=== PATIENT | female | born 1980 | race Caucasian/White ===

== ENCOUNTER 2023-09-24 13:41 | Outpatient (REF) | payer BC, SELFPAY ==
[2023-09-29 10:11] LABS: Age Gdln ACOG Testing Note (.); HPV Aptima Negative (Negative); IGP, Aptima HPV, rfx 16/18,45 Note (.)
== END 2023-09-24 13:42 | disposition home or self-care (01) ==
LOC: LAB 13:41
PROVIDERS: PCP Obstetrics & Gynecology; Visit Provider Obstetrics & Gynecology
DX: Z01.419 Encounter for gynecological examination (general) (routine) without abnormal findings (principal)
CPT/HCPCS: 87624; G0145

== ENCOUNTER 2024-09-29 20:37 | Outpatient (REF) | payer BC, SELFPAY ==
--- OUTSIDE RECORDS SUMMARY | 2024-09-29 20:41 | XMS_ITS | CCD ---
Author Organization [facility] Care Team Providers Care Dip Tanker Name Role Phone Ashley Mayer Unavailable Yannick Rosales Unavailable [facility] Unavailable DR DOMINIK LEÓN Admitting Unavailable DR DOMINIK LEÓN Attending Unavailable DR MADDIE CASTAÑEDA Primary Care Unavailable DR DOMINIK LEÓN Consulting Unavailable MD Maddie Castañeda Primary Care Provider Obtashieymara, CLAY-C Cassandra Madden Attending Provider Maddie Castañeda MD Primary Care Provider Maddie Castañeda MD Primary Care Provider Ashley Barker NP Unavailable Maddie Castañeda MD Unavailable RIANNA KASPER Referring Unavailable MADDIE CASTAÑEDA Primary Care Unavailable LyChelsea Admitting Unavailable Chelsea Robbins Attending Unavailable Maddie Castañeda Primary Care Unavailable Cassandra Mixon Admitting Unavailable Cassandra Mixon Attending Unavailable Maddie Castañeda Primary Care Unavailable Maddie Castañeda MD Unavailable Maddie Castañeda MD Primary Care Provider Maddie Castañeda MD Unavailable ALE HAMPTON Attending Unavailable MADDIE CASTAÑEDA Referring Unavailable MADDIE CASTAÑEDA Primary Care Unavailable HAIDER CALABRESE JR. Attending Unavailable HAIDER CALABRESE JR. Referring Unavailable MADDIE CASTAÑEDA Primary Care Unavailable HAIDER CALABRESE JR. Admitting Unavailable HAIDER CALABRESE JR. Attending Unavailable WONDERMADDIE ROBBINS Referring Unavailable WONDERLY, MADDIE B Primary Care Unavailable ROOT, ASHLEY E Attending Unavailable WONDERLY, MADDIE B Primary Care Unavailable NIENBERGALE Attending Unavailable WONDERLY, MADDIE B Referring Unavailable WONDERLY, MADDIE B Primary Care Unavailable MONTSERRAT HAMPTON Attending Unavailable MONTSERRAT HAMPTON S Referring Unavailable WONDERLY, MADDIE B Primary Care Unavailable PUMP, ASHLEY L Referring Unavailable WONDERLY, MADDIE B Primary Care Unavailable PUMP, ASHLEY L Referring Unavailable WONDERLY, MADDIE B Primary Care Unavailable NIENBERGALE M Attending Unavailable WONDERLY, MADDIE B Referring Unavailable WONDERLY, MADDIE B Primary Care Unavailable APLING, ERYN B Referring Unavailable WONDERLY, MADDIE B Primary Care Unavailable CALABRESE JR., HAIDER Admitting Unavailable CALABRESE JR., HAIDER Attending Unavailable WONDERLY, MADDIE B Referring Unavailable WONDERLY, MADDIE B Primary Care Unavailable CALABRESE JR., HAIDER Attending Unavailable CALABRESE JR., HAIDER Referring Unavailable WONDERLY, MADDIE B Primary Care Unavailable ROOT, ASHLEY E Attending Unavailable WONDERLY, MADDIE B Primary Care Unavailable WONDERLY, MADDIE B Primary Care Unavailable LAURA TANNER Attending Unavailable LAURA TANNER Attending Unavailable TANNERLAURA RUSSELL Referring Unavailable WONDERLY, MADDIE B Primary Care Unavailable VERHOFF, ALMAZ N Attending Unavailable WONDERLY, MADDIE B Referring Unavailable WONDERLY, MADDIE B Primary Care Unavailable APLING, ERYN B Referring Unavailable WONDERLY, MADDIE B Primary Care Unavailable CALABRESE JR., HAIDER Admitting Unavailable CALABRESE JR., HAIDER Attending Unavailable WONDERLY, MADDIE B Referring Unavailable WONDERLY, MADDIE B Primary Care Unavailable CALABRESE JR., HAIDER Attending Unavailable CALABRESE JR., HAIDER Referring Unavailable WONDERLY, MADDIE B Primary Care Unavailable APLING, ERYN B Referring Unavailable WONDERLY, MADDIE B Primary Care Unavailable CALABRESE JR., HAIDER Attending Unavailable CALABRESE JR., HAIDER Referring Unavailable WONDERLY, MADDIE B Primary Care Unavailable CALABRESE JR., HAIDER Admitting Unavailable CALABRESE JR., HAIDER Attending Unavailable CALABRESE JR., HAIDER Referring Unavailable WONDERLY, MADDIE B Primary Care Unavailable ANKITA PATE Attending Unavailable WONDERLY, MADDIE B Primary Care Unavailable VERHOFF, ALMAZ N Attending Unavailable WONDERLY, MADDIE B Referring Unavailable WONDERLY, MADDIE B Primary Care Unavailable VERHOFF, ALMAZ N Attending Unavailable WONDERLY, MADDIE B Referring Unavailable WONDERLY, MADDIE B Primary Care Unavailable VERHOFF, ALMAZ N Referring Unavailable WONDERLY, MADDIE B Primary Care Unavailable VERHOFF, ALMAZ N Referring Unavailable WONDERLY, MADDIE B Primary Care Unavailable GUANAKITO CARDOZO, HAIDER Admitting Unavailable CALABRESE JR., HAIDER Attending Unavailable WONDERLY, MADDIE B Referring Unavailable WONDERLY, MADDIE B Primary Care Unavailable GUANAKITO JR., HAIDER Attending Unavailable GUANAKITO JR., HAIDER Referring Unavailable WONDERLY, MADDIE B Primary Care Unavailable ROOT, ASHLEY E Attending Unavailable WONDERLY, MADDIE B Primary Care Unavailable PUMP, ASHLEY Attending Unavailable PUMP, ASHLEY Attending Unavailable MAU, DOMINIK Attending Unavailable MAJO, RIANNA Carrillo Attending Unavailable PUMP, ASHLEY Attending Unavailable MAU, DOMINIK Attending Unavailable PUMP, ASHLEY Attending Unavailable PUMP, ASHLEY Referring Unavailable LUDIVINA, HONEY Carrillo Attending Unavailable PUMP, ASHLEY Referring Unavailable PUMP, ASHLEY Attending Unavailable MAOJ, RIANNA Carrillo Attending Unavailable RECINOS, ALE Cedeno Attending Unavailable RECINOS, ALE J Referring Unavailable APLING, ERYN Silveira Attending Unavailable RECINOS, ALE Cedeno Referring Unavailable PUMP, ASHLEY Attending Unavailable RECINOS, ALE Cedeno Attending Unavailable MAJO, RIANNA Carrillo Attending Unavailable MAJO, RIANNA Carrillo Referring Unavailable MAU, DOMINIK Attending Unavailable PUMP, ASHLEY Attending Unavailable LUDIVINA, HONEY Carrillo Attending Unavailable PUMP, ASHLEY Referring Unavailable MAU, DOMINIK Attending Unavailable PUMP, ASHLEY Attending Unavailable Allergies Allergy Classification Reported Allergen(s) Allergy Type Date of Onset Reaction(s) Facility (20 sources) Amoxicillin; Translations: [Amoxicillin] Drug Allergy 4 Hives, Swelling [facility] Repository (12 sources) Codeine Drug Allergy 2 Unknown, Unknown Reaction, face flushing [facility] (1 source) Codeine Drug Allergy 4 [facility] Repository (15 sources) frovatriptan Drug Allergy 3 [facility] (15 sources) Penicillin V Drug Allergy 3 Hives [facility] (15 sources) rizatriptan Drug Allergy 3 [facility] (15 sources) SUMAtriptan Drug Allergy 3 [facility] (2 sources) Adhesive Tape Drug allergy (disorder) 4 [facility] Repository (1 source) Codeine Drug Allergy 4 [facility] Repository (12 sources) Wound Dressing Adhesive Drug Allergy 4 Rash [facility] Medications Current Medications Medication Drug Class(es) Dates Sig (Normalized) Sig (Original) acetaminophen 500 mg oral tablet (14 sources) Start: 11-10-2023 take 1 tablet by mouth every six hours as needed acetaminophen (Tylenol) 500 MG tablet Take 500 mg by mouth every 6 (six) hours if needed 11/10/2023 Active [id number] 200 actuat albuterol 0.09 mg/actuat metered dose inhaler (3 sources) beta2-Adrenergic Agonist Start: 02-29-2024 End: 02-28-2025 take 2 puff(s) by inhalation every four hours for wheezing albuterol HFA 90 mcg/act inhaler Indications: Cough, unspecified type , SOB (shortness of breath) Inhale 2 puffs every 4 (four) hours if needed for wheezing 18 g 02/29/2024 08/27/2024 Discontinued (Therapy completed) almotriptan 12.5 mg oral tablet (20 sources) Serotonin-1b and Serotonin-1d Receptor Agonist Start: 04-02-2024 take 1 tablet by mouth once almotriptan (Axert) 12.5 MG tablet Indications: Migraine without status migrainosus, not intractable, unspecified migraine type (CMS/HCC) Take 1 tablet (12.5 mg) by mouth 1 (one) time if needed for migraine 12 tablet 11 04/02/2024 Active Start: 02-28-2022 Almotriptan Ma late Active 12.5 MG PO As Directed February 28, 2022 12:00am Start: 10-22-2018 End: 02-28-2022 take 15 mg by mouth once daily Axert Discontinued 15 M G PO Daily October 22, 2018 1:00am February 28, 2022 9:26am Axert PRN Active ALPRAZolam 0.25 mg oral tablet (12 sources) Benzodiazepine Start: 05-15-2024 take 1 tablet by mouth once daily as needed for anxiety ALPRAZolam (Xanax) 0.25 MG tablet Indications: Panic attacks (CMS/HCC) Take 1 tablet (0.25 mg) by mouth Daily as needed for anxiety 7 tablet 05/15/2024 Active azithromycin 500 mg oral tablet (2 sources) Macrolide Antimicrobial Start: 09-24-2024 End: 09-27-2024 take 1 tablet by mouth once daily azithromycin (Zithromax) 500 MG tablet Indications: Non-recurrent acute suppurative otitis media of both ears without spontaneous rupture of tympanic membranes Take 1 tablet (500 mg) by mouth Daily for 3 days 3 tablet 09/24/2024 09/27/2024 Active baclofen 10 mg oral tablet (17 sources) gamma-Aminobutyric Acid-ergic Agonist Start: 06-17-2024 take 1 tablet by mouth in the morning baclofen (Lioresal) 10 MG tablet Take 10 mg by mouth in the morning and 10 mg in the evening. 06/17/2024 Active calcium polycarbophil 625 mg oral tablet (20 sources) take 1 tablet by mouth in the morning Calcium Polycarbophil (fiber) 625 MG tablet Take 625 mg by mouth in the morning. Active cholecalciferol 0.125 mg oral capsule (20 sources) Vitamin D Start: 03-21-2024 take 5000 [IU] by mouth once daily Cholecalciferol (Vitamin D3) Active 5000 UNIT PO Daily March 21, 2024 12:00am take 1 tablet by mouth in the mo rning cholecalciferol (Vitamin D-3) 125 MCG (5000 UT) tablet Take 5,000 Units by mouth in the morning. Active citric acid 75 mg/ml / magnesium oxide 21.9 mg/ml / picosulfate sodium 0.0625 mg/ml oral solution (1 source) Calculi Dissolution Agent, Anti-coagulant Start: 02-08-2022 Clenpiq 10-3.5-12 MG-GM -GM/160ML 160 ML BOTTLE AT 3 PM AND 9 PM DAY PRIOR TO COLONOSCOPY Orally as directed for 1 days Jan, Active dicyclomine hydrochloride 10 mg oral capsule (20 sources) Anticholinergic Start: 09-28-2024 take 1 capsule by mouth four times daily as needed for pain dicyclomine (Bentyl) 10 MG capsule Indications: Irritable bowel syndrome with diarrhea Take 1 capsule (10 mg) by mouth 4 (four) times a day as needed (abd pain) 120 capsule 09/28/2024 Active Start: 04-11-2022 End: 09-26-2024 Dicyclomine Active 10 MG PO As Directed April 11, 2022 12:00am Bentyl PRN Activ e docusate sodium 10 mg/ml ora l suspension (17 sources) take 50 mg by mouth in the morning docusate (Colace) 50 MG/5ML liquid Take 50 mg by mouth in the morning. Active take 5 mL by mouth in the mornin g docusate (COLACE) 50 mg/5 mL liquid Take 5 mL (50 mg total) by mouth in the morning. Active estradiol 1 mg oral tablet (17 sources) Estrogen Start: 12-13-2023 End: 02-12-2025 take 1 tablet by mouth once daily estradiol (Estrace) 1 MG tablet Indications: Hormone imbalance Take 1 tablet (1 mg) by mouth Daily 90 tablet 3 02/13/2024 02/12/2025 Active Estradiol Active estrogens, conjugated (halfway) 0.625 mg oral tablet (4 sources) Estrogen Start: 07-15-2024 End: 08-27-2024 take 1 tablet by mouth once daily, then take 1 tablet by mouth once daily estrogens, conjugated, (Premarin) 0.625 MG tablet Indications: Hot flashes Take 1 tablet (0.625 mg) by mouth Daily Take 1 tablet daily by mouth for 30 days 30 tablet 3 07/15/2024 08/27/2024 Discontinued (Cost of medication) hydrocortisone 25 mg/ml rectal cream (15 sources) Corticosteroid Start: 11-08-2023 hydrocortisone (Anusol-HC) 2.5 % rectal cream Indications: Hemorrhoids, unspecified hemorrhoid type Insert into the rectum 2 (two) times a day 30 g 11/08/2023 Active hydrOXYzine hydrochloride 50 mg oral tablet (15 sources) Antihistamine Start: 12-10-2023 End: 03-09-2024 take 1 tablet by mouth every six hours as needed for anxiety and anxiety and anxiety hydrOXYzine HCl (Atarax) 50 MG tablet Indications: Anxiety Take 1 tablet (50 mg) by mouth every 6 (six) hours if needed for anxiety 120 tablet 2 12/10/2023 Active hyoscyamine sulfate 0.125 mg sublingual tablet (18 sources) Start: 10-08-2023 hyoscyamine (Levsin/SL) 0.125 MG SL tablet Indications: Generalized abdominal pain , Abdominal spasms Place 1 tablet (125 mcg) under the tongue every 4 (four) hours if needed for bladder spasms. 120 tablet 10/08/2023 Active Start: 10-22-2018 End: 04-11-2022 take 0.125 mg under the tongue once daily Hyoscyamine Sulfate Discontinued 0.125 MG SUBLINGUAL Daily October 22, 2018 1:00am April 11, 2022 8:41am ibuprofen 600 mg oral tablet (10 sources) Nonsteroidal Anti-inflammatory Drug Start: 11-10-2023 End: 08-27-2024 take 1 tablet by mouth every six hours as needed for pain ibuprofen (MOTRIN) 600 mg tablet Take 1 tablet (600 mg total) by mouth every 6 (six) hours as needed for pain. 30 tablet 11/10/2023 Active linaclotide 0.145 mg oral capsule (12 sources) Guanylate Cyclase-C Agonist Start: 07-28-2024 linaCLOtide (Linzess) 145 MCG capsule Daily 07/28/2024 Active lurasidone hydrochloride 20 mg oral tablet (3 sources) Atypical Antipsychotic Start: 09-19-2024 lurasidone (Latuda) 20 MG tablet 09/19/2024 Active NON FORMULARY (2 sources) NON FORMULARY daily. Hormone compound from Dr León 0 Active omeprazole 40 mg delayed release oral capsule (20 sources) Proton Pump Inhibitor Start: 02-29-2024 End: 09-08-2024 take 1 capsule by mouth once daily before mealtime omeprazole (PriLOSEC) [address] capsule Indications: Heartburn TAKE 1 CAPSULE BY MOUTH EVERY MORNING TAKE BEFORE MEALS DO NOT CRUSH, OR CHEW 90 capsule 1 09/08/2024 Active Start: 12-25-2023 End: 01-24-2024 take 1 capsule by mouth before mealtime omeprazole (PriLOSEC) [address] capsule Indications: Heartburn Take 1 capsule (40 mg) by mouth in the morning. Take before meals. Do not crush or chew.. 30 capsule 0 12/25/2023 01/24/2024 Active ondansetron 4 mg oral tablet (2 sources) Serotonin-3 Receptor Antagonist Start: 12-25-2023 End: 12-28-2023 take 1 tablet by mouth every eight hours for nausea ondansetron (Zofran) 4 MG tablet Indications: Nausea and vomiting, unspecified vomiting type Take 1 tablet (4 mg) by mouth every 8 (eight) hours if needed for nausea or vomiting for up to 3 days 9 tablet 0 12/25/2023 12/28/2023 Active polyethylene glycol 3350 [id number] mg powder for oral solution (17 sources) Osmotic Laxative take 17 g by mouth in the morning polyethylene glycol, PEG, 3350 (Miralax) 17 g packet Take 17 g by mouth in the morning. Active predniSONE 20 mg oral tablet (2 sources) Start: 08-27-2024 End: 09-01-2024 take 1 tablet by mouth once daily predniSONE (Deltasone) 20 MG tablet Indications: Chronic bilateral low back pain with bilateral sciatica Take 1 tablet (20 mg) by mouth Daily for 5 days 5 tablet 08/27/2024 09/01/2024 Active pregabalin 100 mg oral capsule (17 sources) Start: 09-03-2024 take 1 capsule by mouth in the morning, then take 1 capsule by mouth at bedtime pregabalin (LYRICA) 100 mg capsule Indications: Lumbar spondylosis , Disorder of sacrum , Spinal stenosis of lumbar region with neurogenic claudication Take 1 capsule (100 mg total) by mouth in the morning and 1 capsule (100 mg total) before bedtime. 60 capsule 1 09/03/2024 Active Start: 08-20-2024 End: 09-03-2024 take 1 capsule by mouth in the morning pregabalin (Lyrica) 75 MG capsule Take 75 mg by mouth in the morning and 75 mg in the evening. 08/20/2024 Active Psyllium (Hydrocil Instant) Packet (3 sources) Start: 02-28-2022 Psyllium (Hydrocil Instant) Packet Active 1 PACKET PO Daily February 28, 2022 12:00am Sennosides (Senna) 8.6 mg capsule (1 source) Start: 07-28-2024 take 1 capsule by mouth twice daily Sennosides (Senna) 8.6 mg capsule Active 8.6 MG PO Twice daily 60 30 July 28, 2024 12:00am sertraline 50 mg oral tablet (16 sources) Serotonin Reuptake Inhibitor Start: 01-07-2024 take 1 tablet by mouth in the morning sertraline (Zoloft) 50 MG tablet Indications: Anxiety Take 1 tablet (50 mg) by mouth in the morning. 30 tablet 2 01/07/2024 Active Start: 12-10-2023 take 1.5 tablets by mouth in the morning sertraline (Zoloft) 50 MG tablet Indications: Anxiety Take 1.5 tablets (75 mg) by mouth in the morning. 90 tablet 1 12/10/2023 Active tiZANidine 4 mg oral tablet (10 sources) Central alpha-2 Adrenergic Agonist Start: 08-27-2024 End: 09-06-2024 take 1 tablet by mouth twice daily as needed for muscle spasms tiZANidine (Zanaflex) 4 MG tablet Indications: Chronic bilateral low back pain with bilateral sciatica Take 1 tablet (4 mg) by mouth 2 (two) times a day as needed for muscle spasms for up to 10 days 20 tablet 08/27/2024 Active Vitamin D-3 (6 sources) Vitamin D-3 Acti ve Completed/Discontinued Medications Medication Drug Class(es) Dates Sig (Normalized) Sig (Original) celecoxib 200 mg oral capsule (14 sources) Nonsteroidal Anti-inflammatory Drug Start: 10-22-2018 End: 03-05-2024 take 200 mg by mouth once daily Celecoxib Discontinued 200 MG PO Daily October 22, 2018 1:00am March 05, 2024 10:19am CeleBREX Active ciprofloxacin 500 mg oral tablet (7 sources) Quinolone Antimicrobial Start: 02-28-2022 End: 04-11-2022 take 500 mg by mouth twice daily Ciprofloxacin Hcl Discontinued 500 MG PO Twice daily February 28, 2022 12:00am April 11, 2022 8:41am take 1 tablet by jonna every twelve hours Cipro 500 MG 1 tablet Orally every 12 hr s Not-Taking/PRN doxepin hydrochloride 10 mg oral capsule (6 sources) Tricyclic Antidepressant Start: 03-05-2024 End: 03-21-2024 take 1 capsule by mouth once daily at bedtime Doxepin Discontinued 10 MG PO Daily at bedtime March 05, 2024 12:00am March 21, 2024 8:32am FreeTextSi capsule at bedtime Orally Once a day; Note: Source Status: Start; Refills: 3; Qty: 90 Capsule; Provider: Connie Mcgrath Start: 12-05-2023 take 1 capsule by mo [facility] at bedtime doxepin (SINEquan) 10 MG capsule Take 1 capsule by mouth at bedtime 0 12/05/2023 Active escitalopram 20 mg oral tablet (10 sources) Serotonin Reuptake Inhibitor Start: 02-28-2022 End: 03-21-2024 take 20 mg by mouth once daily Escitalopram Oxalate Discontinued 20 MG PO Daily February 28, 2022 12:00am March 21, 2024 8:33am Escitalopram Oxa late Not-Taking/PRN Escitalopram Oxa late Active gabapentin 300 mg oral capsule (1 source) Anti-epileptic Agent Start: 07-30-2024 End: 08-20-2024 gabapentin (NEURONTIN) 300 mg capsule Indications: Lumbosacral spondylosis without myelopathy , Disorder of sacrum , Lumbar radiculopathy Take 1 capsule (300 mg total) by mouth See Admin Instructions. Take 1 tablet by mouth at bedtime for 3 nights, then take 1 tablet by mouth twice daily for 3 days, then take 1 tablet by mouth three times daily thereafter 81 capsule 07/30/2024 08/20/2024 Discontinued (Alternate therapy) Lactobacillus Combination No.4 (Probiotic) 3 billion cell Capsule (3 sources) Start: 04-11-2022 End: 03-21-2024 take 3 capsules by mouth once daily Lactobacillus Combination No.4 (Probiotic) 3 billion cell Capsule Discontinued 3000 MMU CELLS PO Daily April 11, 2022 12:00am March 21, 2024 8:34am Start: 04-11-2022 take 3 capsules by m out once daily Lactobacillus Combination No.4 (Probiotic) 3 billion cell Capsule Active 3000 MMU CELLS PO Daily April 11, 2022 12:00am melatonin 5 mg oral tablet (3 sources) Start: 10-22-2018 End: 03-21-2024 take 10 mg by mouth once daily at bedtime Melatonin Discontinued 10 MG PO Daily at bedtime October 22, 2018 1:00am March 21, 2024 8:34am metroNIDAZOLE 500 mg oral tablet (4 sources) Nitroimidazole Antimicrobial take 1 tablet by mouth three times daily as needed Flagyl 500 MG 1 tablet Orally Three times a day Not-Taking/PRN Psyllium Seed (With Dextrose) (Fiber) Powder (3 sources) Start: 10-22-2018 End: 02-28-2022 take 30 g by mouth once daily Psyllium Seed (With Dextrose) (Fiber) Powder Discontinued 30 GM PO Daily October 22, 2018 1:00am February 28, 2022 9:27am Problems Active Problems Problem Classification Problem Date Documented Da te Episodic/Chronic Abdominal pain (8 sources) Abdominal pain; Translations: [Unspecified abdominal pain] Onset: 02-08-2022 Resolved: 03-28-2022 Episodic Anxiety disorders (20 sources) Anxiety; Translations: [Anxiety disorder, unspecified] Onset: 04-10-2023 04-10-2023 Chronic Disorders of lipid metabolism (17 sources) Hypertriglyceridemia ; Translations: [Pure hyperglyceridemia] Onset: 04-10-2023 04-10-2023 Chronic Diverticulosis and diverticulitis (20 sources) Diverticular disease of colon; Translations: [Diverticulosis of intestine, part unspecified, without perforation or abscess without bleeding] Onset: 10-09-2018 Resolved: 03-28-2022 Chronic Gastrointestinal hemorrhage (9 sources) Hematochezia; Translations: [Melena] Onset: 02-08-2022 Resolved: 03-28-2022 Episodic Headache; including migraine (15 sources) Migraine; Translations: [Migraine, unspecified, not intractable, without status migrainosus] Onset: 04-10-2023 04-10-2023 Chronic Immunizations and screening for infectious disease (1 source) Encounter for screening for human papillomavirus (HPV); Translations: [ENC SCREENING HUMAN PAPILLOMAVIRUS] Onset: 09-19-2022 Episodic Nausea and vomiting (1 source) Nausea and vomiting; Translations: [Nausea with vomiting, unspecified] 12-25-2023 Episodic Nutritional deficiencies (15 sources) Vitamin D deficiency; Translations: [Vitamin D deficiency, unspecified] Onset: 04-10-2023 04-10-2023 Chronic Osteoarthritis (1 source) Primary generalized (osteo)arthritis; Translations: [Primary generalized (osteo)arthritis] Onset: 07-11-2023 Chronic Other ear and sense organ disorders (2 sources) Tinnitus of left ear; Translations: [Tinnitus, left ear] 09-24-2024 Episodic Other endocrine disorders (2 sources) Disorder of endocrine system; Translations: [Endocrine disorder, unspecified] 09-04-2024 Episodic Other gastrointestinal disorders (20 sources) Irritable bowel syndrome; Translations: [Irritable bowel syndrome without diarrhea] Onset: 04-10-2023 12-26-2023 Chronic Other gastrointestinal disorders (1 source) Irritable bowel syndrome without diarrhea Onset: 02-08-2022 Resolved: 02-08-2022 Chronic Other gastrointestinal disorders (2 sources) Irritable bowel syndrome with diarrhea; Translations: [Irritable bowel syndrome with diarrhea] 09-28-2024 Chronic Other gastrointestinal disorders (1 source) Irritable bowel syndrome with diarrhea Chronic Other gastrointestinal disorders (2 sources) Irritable bowel syndrome characterized by alternating bowel habit; Translations: [Mixed irritable bowel syndrome] 03-05-2024 Chronic Other gastrointestinal disorders (2 sources) Mixed irritable bowel syndrome; Translations: [Irritable bowel syndrome] 03-05-2024 Chronic Other gastrointestinal disorders (9 sources) Constipation; Translations: [Constipation, unspecified] Onset: 09-24-2024 07-28-2024 Episodic Other gastrointestinal disorders (3 sources) Constipation, unspecified; Translations: [Constipation, unspecified] Onset: 02-08-2022 Resolved: 03-28-2022 Episodic Other gastrointestinal disorders (5 sources) Diarrhea; Translations: [Diarrhea, unspecified] 12-25-2023 Episodic Other gastrointestinal disorders (2 sources) Heartburn; Translations: [Heartburn] 12-25-2023 Episodic Other gastrointestinal disorders (1 source) Diarrhea, unspecified; Translations: [Diarrhea, unspecified] Onset: 12-26-2023 Episodic Other hereditary and degenerative nervous system conditions (1 source) Restless legs syndrome; Translations: [Restless legs syndrome] Onset: 03-27-2024 Chronic Other nervous system disorders (15 sources) Difficulty walking; Translations: [Difficulty in walking, not elsewhere classified] Onset: 04-10-2023 04-10-2023 Chronic Other nervous system disorders (1 source) Other chronic pain; Translations: [Other chronic pain] Onset: 01-22-2024 Chronic Other nervous system disorders (1 source) Unspecified mononeuropathy of bilateral lower limbs; Translations: [Unspecified mononeuropathy of bilateral lower limbs] Onset: 12-26-2023 Chronic Other nutritional; endocrine; and metabolic disorders (15 sources) Cholesterol level - finding; Translations: [Lipoprotein deficiency] Onset: 04-10-2023 04-10-2023 Chronic Other nutritional; endocrine; and metabolic disorders (17 sources) Body mass index 30+ - obesity; Translations: [Obesity, unspecified] Onset: 04-10-2023 04-10-2023 Chronic Other nutritional; endocrine; and metabolic disorders (2 sources) Obesity caused by energy imbalance; Translations: [Morbid (severe) obesity due to excess calories] 08-27-2024 Chronic Other screening for suspected conditions (not mental disorders or infectious disease) (4 sources) Encounter for screening for malignant neoplasm of cervix; Translations: [ENC SCREENING MALIG NEOPLASM CERV] Onset: 09-18-2022 Episodic Other upper respiratory infections (15 sources) Frontal sinusitis; Translations: [Chronic frontal sinusitis] Onset: 04-10-2023 04-10-2023 Chronic Otitis media and related conditions (15 sources) Chronic left mastoiditis; Translations: [Chronic mastoiditis, left ear] Onset: 04-10-2023 04-10-2023 Chronic Residual codes; unclassified (2 sources) Obstructive sleep apnea syndrome; Translations: [Obstructive sleep apnea (adult) (pediatric)] 08-27-2024 Chronic Residual codes; unclassified (1 source) Hypersomnia, unspecified; Translations: [Hypersomnia, unspecified] Onset: 03-27-2024 Chronic Residual codes; unclassified (1 source) Other sleep apnea; Translations: [Other sleep apnea] Onset: 03-27-2024 Chronic Residual codes; unclassified (2 sources) Flushing; Translations: [Flushing] 09-04-2024 Episodic Residual codes; unclassified (2 sources) Menopause present; Translations: [Asymptomatic menopausal state] 09-04-2024 Episodic Spondylosis; intervertebral disc disorders; other back problems (20 sources) Degeneration of lumbosacral intervertebral disc; Translations: [Other intervertebral disc degeneration, lumbosacral region] Onset: 04-10-2023 04-10-2023 Chronic Spondylosis; intervertebral disc disorders; other back problems (20 sources) Acute back pain with sciatica; Translations: [Lumbago with sciatica, right side] Onset: 04-10-2023 04-10-2023 Episodic Unclassified (15 sources) Patient on antidepressant monitoring plan Onset: 08-08-2023 08-08-2023 Unclassified (1 source) Low back pain, unspecified; Translations: [Low back pain, unspecified] Onset: 01-22-2024 Past or Other Problems Problem Classification Problem Date Documented Da te Episodic/Chronic Hemorrhoids (1 source) Unspecified hemorrhoids Onset: 04-12-2022 Resolved: 04-12-2022 Episodic Miscellaneous mental health disorders (15 sources) Symptoms of depression; Translations: [Other symptoms and signs involving emotional state] Onset: 04-10-2023 04-10-2023 Episodic Mood disorders (15 sources) Mood disorders Onset: 05-03-2023 05-03-2023 Other acquired deformities (1 source) Spondylolysis, lumbar region; Translations: [Spondylolysis, lumbar region] Onset: 03-25-2024 Episodic Other aftercare (15 sources) Patient encounter status; Translations: [Other medical massage therapist (current) drug therapy] Onset: 05-11-2023 05-11-2023 Episodic Other connective tissue disease (1 source) Pain in right foot Onset: 01-14-2022 Resolved: 01-14-2022 Episodic Other connective tissue disease (1 source) Pain in left hand; Translations: [Pain in left hand] Onset: 11-09-2023 Episodic Other connective tissue disease (1 source) Hand pain Onset: 11-09-2023 Episodic Other gastrointestinal disorders (16 sources) History of diverticulitis; Translations: [Personal history of other diseases of the digestive system] Onset: 10-09-2018 04-18-2023 Episodic Other non-traumatic joint disorders (16 sources) Pain in right shoulder; Translations: [Pain in joint, shoulder region] Onset: 08-08-2023 08-08-2023 Episodic Other non-traumatic joint disorders (1 source) Other specified joint disorders, right shoulder; Translations: [Other specified joint disorders, right shoulder] Onset: 05-07-2024 Episodic Otitis media and related conditions (17 sources) Otitis media; Translations: [Otitis media, unspecified, unspecified ear] Onset: 04-10-2023 04-10-2023 Episodic Residual codes; unclassified (15 sources) Insomnia; Translations: [Insomnia, unspecified] Onset: 04-10-2023 04-10-2023 Episodic Superficial injury; contusion (1 source) Contusion of right foot, initial encounter Onset: 01-14-2022 Resolved: 01-14-2022 Episodic Results Test Name Value Interpretation Reference Range Facility XR ABDOMEN 1 VIEWon 07-11-20 XR ABDOMEN 1 VIEW Exam: XR - ABDOMEN 1 VIEW Reason for exam: Nausea, constipation, abdominal pain, discomfort Prior comparative studies: None Findings: No bowel dilatation is apparent. There is slight gaseous distention of small bowel in the right abdomen. There are clips in the right upper quadrant. No suspicious calcifications are seen. There is a paucity of stool in the colon. IMPRESSION: 1. Nonspecific bowel gas pattern. No clear evidence for obstruction. Electronically Signed Domingo Polk M.D. 2024-07-11 09:35:45 Normal Not Available XR SHOULDER 2+ VIEWS RIGHTon 05-06-2024 XR SHOULDER 2+ VIEWS RIGHT FINDINGS: The acromion is mildly down-sloping. Minimal osteophyte formation involves the AC joint. No fracture or dislocation or rotator cuff calcification is seen. Upper chest is clear. IMPRESSION: Mild arthritis, acromial morphology possible impingement TRANSCRIBED BY: ELECTRONICALLY SIGNED BY: Benjamin Cain MD Normal Not Available [place]illo 04-01-2024 L Specimen: [id number] Received: 04/01/24 Status: JAMARCUS Ware Num: [id number] Spec Type: Surgical Subm Dr: Chelsea Robbins DO Tissues: A Colon Biopsy (CECAL POLYP) B Colon Biopsy (SIGMOID POLYP) Procedures: HE/4, Gross/Micro L4/2 Age/ Patient Sex Location Account Attending Physician Georgette Wu 44/F [id number] Chelsea Robbins DO SPEC NUM: [id number] RECD: 04/01/24 STATUS: JAMARCUS WARE NUM: [id number] MARIA C: 04/01/24- SUBM DR: Chelsea Robbins DO ENTERED: 04/01/[address]: SPEC TYPE: Surgical DEPT: S ORDERED: HE/4, Gross/Micro L4/2 ORDERED: HE/4, Gross/Micro L4/2 Pathological Diagnosis A. Polyp, cecum, biopsy: Hyperplastic polyp. B. Polyp, sigmoid colon, biopsy: Hyperplastic polyp. Gross Description Received are 2 formalin filled containers each labeled with the patient's name, date of and specific specimen site. A. Further labeled cecal polyp is a 0.3 x 0.3 x 0.2 cm andrew polypoid tissue fragment, entirely submitted in A1. B. Further labeled sigmoid polyp is a 0.3 x 0.3 x 0.1 cm andrew polypoid tissue fragment, entirely submitted in B1. Clinical history: IBS, rectal bleeding, family history of colon cancer CPT Codes 62252n0 Specimen: [id number] Received: 04/01/24 Status: JAMARCUS Ware Num: [id number] Spec Type: Surgical Subm Dr: Chelsea Robbins DO Tissues: A Colon Biopsy (CECAL POLYP) B Colon Biopsy (SIGMOID POLYP) Procedures: Krystal MICHEL/Julio L4/2 Patient: Georgette Wu [id number] (Continued) Signed (signatur e on file) Zhao Dawkins MD 04/02/24 1503 [facility] Bacteria identified Cx Nom ( Stl)on 12-26-2023 STOOL CULT FINAL REPORT SEE NOTE Normal P [facility] Comment on above: Result Comment: NOTE Culture negative for Salmonella, Shigella, Campylobacter, E. coli O157, Vibrio, Aeromonas, and Plesiomonas species. Performed By: [employer] [address] [facility] [place] [address] Blanket Winder Helper: Song Britton MD, PhD CLIA Number: [id number] STOOL CULT PRELIM REPORT SEE NOTE Normal [facility] Comment on above: Result Comment: NOTE Culture negative for Salmonella, Shigella and E. coli O157. Performed By: [employer] [address] [place] [place] [address] Blanket Winder Helper: Song Britton MD, PhD CLIA Number: [id number] C DIFFICILE BY PCRon 024 C. difficile toxin genes KEVIN+probe Ql (Stl) TOXIGENIC C DIFF Negative (qualifier value) 027 NAP1 Negative (qualifier value) Normal PRNEG [facility] Comment on above: Performed By: #### 5 4067-4, OPS #### [facility] ([id number]) [address], [address] [place] [address] CBC W Auto Differential pane l (Bld)on 12-26-2023 Basophils (Bld) [#/Vol] 11 10*3/uL N [facility] Basophils/100 WBC (Bld) 0.1 % [facility] Eosinophils (Bld) [#/Vol] 0 10*3/uL Low [facility] Eosinophils/100 WBC (Bld) 0.0 % [facility] Erythrocyte distribution width (RBC) [Ratio] 13.2 % 11.0 - 15.0 % [facility] Hematocrit (Bld) [Volume fraction] 42.3 % 35.0 - 45.0 % [facility] Hemoglobin (Bld) [Mass/Vol] 14.2 g/dL 11.7 - 15.5 g/dL [facility] Interpretation and review of laboratory results Abnormal [facility] Lymphocytes (Bld) [#/Vol] 2553 10*3/uL [facility] Lymphocytes/100 WBC (Bld) 23.0 % [facility] MCH (RBC) [Entitic mass] 28.4 pg 27. 0 - 33.0 pg [facility] MCHC (RBC) [Mass/Vol] 33.6 g/dL 32.0 - 36.0 g/dL [facility] MCV (RBC) [Entitic vol] 84.6 fL 80.0 - 100.0 fL [facility] Monocytes (Bld) [#/Vol] 444 10*3/uL [facility] Monocytes/100 WBC (Bld) 4.0 % N [facility] Neutrophils (Bld) [#/Vol] 8092 10*3/uL High [facility] Neutrophils/100 WBC (Bld) 72.9 % [facility] Platelet mean volume (Bld) [Entitic vol] 9.9 fL 7.5 - 12.5 fL [facility] Platelets (Bld) [#/Vol] 379 10*3/uL [facility] RBC (Bld) [#/Vol] 5.00 10*6/uL [facility] WBC (Bld) [#/Vol] 11.1 10*3/uL High [facility] Comprehensive metabolic pane pillo 12-26-2023 Albumin [Mass/Vol] 4.2 g/dL 3.6 - 5.1 g/dL [facility] Albumin/Globulin [Mass ratio] 1.6 {ratio} [facility] ALP [Catalytic activity/Vol] 82 U/L 31 - 125 U/L [facility] ALT [Catalytic activity/Vol] 14 U/L 6 - 29 U/L [facility] AST [Catalytic activity/Vol] 14 U/L 10 - 30 U/L [facility] Bilirubin [Mass/Vol] 0.8 mg/dL 0.2 - 1 .2 mg/dL [facility] Calcium [Mass/Vol] 9.5 mg/dL 8.6 - 10. 2 mg/dL [facility] Chloride [Moles/Vol] 103 mmol/L 98 - 11 0 mmol/L [facility] CO2 [Moles/Vol] 27 mmol/L 20 - 32 mmol/L [facility] Creatinine [Mass/Vol] 0.53 mg/dL 0.50 - 0.99 mg/dL [facility] GFR/1.73 sq M.predicted among non-blacks MDRD (S/P/Bld) [Vol rate/Area] 118 mL/min/{1.73_m2} > OR = 60 mL/min/1.73m 2 [facility] Globulin (S) [Mass/Vol] 2.7 g/dL N [facility] Glucose [Mass/Vol] 81 mg/dL 65 - 99 mg/dL [facility] Comment on above: Fasting reference interval Potassium [Moles/Vol] 3.9 mmol/L 3.5 - 5.3 mmol/L [facility] Protein [Mass/Vol] 6.9 g/dL 6.1 - 8.1 g/dL [facility] Sodium [Moles/Vol] 138 mmol/L 135 - 146 mmol/L [facility] Urea nitrogen [Mass/Vol] 8 mg/dL 7 - 25 mg/d L [facility] Urea nitrogen/Creatinine [Mass ratio] SEE NOTE: [facility] Comment on above: Not Reported: BUN an d Creatinine are within reference range. E. coli shiga-like toxin IA Ql (Stl)on 12-26-2023 E.COLI SHIGA LIKE TOXIN BY EIA Negative Normal Negative [facility] Comment on above: Result Comment: NOTE INTERPRETIVE INFORMATION: E. coli Shiga-like Toxin by EIA This test detects Shiga-like toxin which may be produced by greater than 150 serotypes of E. coli as well as Shigella dysenteriae type 1 strains. The level of toxin does not correlate with severity of disease. A positive result does not exclude infection caused by another enteric pathogen. A negative test does not exclude the diagnosis of hemorrhagic colitis. Performed By: [employer] [address] [place] [address] Blanket Winder Helper: Song Britton MD, PhD CLIA Number: [id number] FECAL OCCULT BLOODon 024 Hemoglobin.gastrointesti nal Ql (Stl) Negative Normal NEG [facility] Comment on above: Performed By: #### 2 335-8 #### [facility] ([id number]) [address] [place] [address], [address] [place] [address] No Panel Informationon 12-26 Performing Organization Information Site ID: QPT Name: Currently [facility] Address: [address] [place] [address], [address] [place] [id number] Director: Aaron Mendiola MD [facility] AND P SCREENon 12-26-2023 O AND P SCREEN GIARDIA SPECIFIC Ag Negative (qualifier value) GIARDIA ANTIGEN NOT DETECTED CRYPTOSPORIDIUM AG Negative (qualifier value) CRYPTOSPORIDIUM ANTIGEN NOT DETECTED NOTE: A Giardia/Cryptospori dium Screen has been performed. A traditional Ova and Parasite exam, if collected in a preservative, may be requested by contacting the laboratory at [phone] within 72 hours of collection for cases of persistent diarrhea or if the patient has visited an endemic area or traveled outside the [place] Normal [facility] Comment on above: Performed By: #### 5 4067-4, OPS #### [facility] ([id number]) [address], [address] [place] [address] XR HAND LT MIN 3 VWSon 11-10 XR HAND LT MIN 3 VWS XR HAND LT MIN 3 VWS XR HAND LT MIN 3 VWS HISTORY: Hand pain, fall COMPARISON: 08/01/2017. FINDINGS: No acute fracture. Mild degenerative changes base of thumb. Soft tissues grossly unremarkable. IMPRESSION: * No acute osseous abnormality. Approved by Resident Justin Trejo DO on 11/09/2023 11:47 PM IRigo MD have personally reviewed the image(s) and agree with and/or edited the report 0 Finalized by Rigo Floyd MD on 11/10/2023 12:00 AM [facility] MR LUMBAR SPINE WO CONTon MR LUMBAR SPINE WO CONT MR LUMBAR SPINE WO CONT MRI LUMBAR SPINE WITHOUT CONTRAST COMPARISON: None. HISTORY: Back pain. TECHNIQUE: Multisequence, multiplanar MRI of the lumbar spine performed without contrast. FINDINGS: Disc desiccation is seen at the L5-S1 level. Remainder the disc spaces are preserved. There are no fractures. The conus medullaris terminates normally. There are no paraspinous masses. L1-2 through L3-4: Within normal limits. L4-5: There is mild disc bulge and facet hypertrophy. There is no neural foraminal encroachment or central canal stenosis. L5-S1: Severe disc desiccation. There is diffuse disc bulge with facet hypertrophy and ligamentum flavum hypertrophy. Moderate to severe neural foraminal narrowing is seen bilaterally without significant central canal stenosis. IMPRESSION: Severe disc desiccation and diffuse disc bulge with ligamentum flavum hypertrophy and facet hypertrophy at the L5-S1 level causing moderate to severe neural foraminal narrowing bilaterally without significant central canal stenosis. 6 Finalized by Rosa Isela Salinas DO on 11/06/2023 9:03 AM Normal [facility] XR ABDOMEN 2 VIEWon 10-08-20 XR ABDOMEN 2 VIEW CLINICAL HISTORY: RUQ and LUQ pain, increased diarrhea COMPARISON: FINDINGS: There are cholecystectomy clips in the right upper quadrant. There is a paucity of intra-abdominal bowel gas which may be secondary to fluid-filled loops of bowel versus vomiting and diarrhea. There are no acute osseous changes. IMPRESSION: There is a paucity of intra-abdominal bowel gas which may be secondary to fluid-filled loops of bowel versus vomiting and diarrhea. ELECTRONICALLY SIGNED BY: Juma Fong MD Normal Not Available Cytology Cervical or vaginal smear or scraping studyon 09-24-2023 [facility] Alan[facility] [En zymatic activity/volume] in Serum or PlasmaOrdered By: Cassandra Mixon on 07-11-2023 ALT [Catalytic activity/Vol] 14 U/L 7-52 [facility] Albumin [Mass/volume] in Ser um or Plasma by Bromocresol green (BCG) dye binding methoOrdered By: Cassandra Mixon on 07-11-2023 Albumin BCG dye [Mass/Vol] 4.3 g/dL 3.5-5.7 [facility] Alkaline phosphatase [Enzyma tic activity/volume] in Serum or PlasmaOrdered By: Cassandra Mixon on 07-11-2023 ALP [Catalytic activity/Vol] 77 U/L 34-104 [facility] Aspartate aminotransferase [ Enzymatic activity/volume] in Serum or PlasmaOrdered By: Cassandra Mixon on 07-11-2023 AST [Catalytic activity/Vol] 16 U/L 13-39 [facility] Basophils Auto (Bld) [#/Vol] Ordered By: Cassandra Mixon on 07-11-2023 Basophils (Bld) [#/Vol] 0.0 10*3/uL 0.0-0.2 [facility] Basophils/100 WBC Auto (Bld) Ordered By: Cassandra Mixon on 07-11-2023 Basophils/100 WBC (Bld) 0.2 % . F [facility] Bilirubin.total [Mass/volume ] in Serum or PlasmaOrdered By: Cassandra Mixon on 07-11-2023 Bilirubin [Mass/Vol] 0.5 mg/dL 0.3-1.0 [facility] Calcium [Mass/volume] in Ser um or PlasmaOrdered By: Cassandra Mixon on 07-11-2023 Calcium [Mass/Vol] 9.6 mg/dL 8.6-10.3 [facility] Carbon dioxide, total [Moles /volume] in Serum or PlasmaOrdered By: Cassandra Mixon on 07-11-2023 CO2 [Moles/Vol] 29.5 mmol/L 21.0-31.0 [facility] Chloride [Moles/volume] in S monica or PlasmaOrdered By: Cassandra Mixon on 07-11-2023 Chloride [Moles/Vol] 103 mmol/L 98-107 [facility] Complete Blood Count Auto Di ffon 07-11-2023 Basophils (Bld) [#/Vol] 0.0 10*3/uL Normal 0.0-0.2 [facility] Comment on above: Result Comment: PERF ORMED BY: [place] [address] PATHOLOGIST HOUSE ADMIN JADYN GUADARRAMA M.D. Performed By: #### C BC, CMP #### [address] Basophils/100 WBC (Bld) 0.2 % Normal . [facility] Comment on above: Performed By: #### C BC, CMP #### [facility] [address] [place] [address] [place] Eosinophils (Bld) [#/Vol] 0.0 10*3/uL Normal 0.0-0.45 [facility] Comment on above: Performed By: #### C BC, CMP #### [place] [address] [place] Eosinophils/100 WBC (Bld) 0.0 % Normal . [facility] Comment on above: Performed By: #### C BC, CMP #### [address] Erythrocyte distribution width (RBC) [Ratio] 13.0 % Normal 11.9-15.3 [facility] Comment on above: Performed By: #### C BC, CMP #### [address] Hematocrit (Bld) [Volume fraction] 40.0 % Normal 34.0-46.4 [facility] Comment on above: Performed By: #### C BC, CMP #### [address] Hemoglobin (Bld) [Mass/Vol] 13.8 g/dL Normal 11.8-15.4 [facility] Comment on above: Performed By: #### C BC, CMP #### [address] Lymphocytes (Bld) [#/Vol] 2.7 10*3/uL Normal 1.00-4.8 [facility] Comment on above: Performed By: #### C BC, CMP #### [address] Lymphocytes/100 WBC (Bld) 27.6 % Normal . [facility] Comment on above: Performed By: #### C BC, CMP #### [address] MCH (RBC) [Entitic mass] 28.5 pg Normal 24.7-34.3 [facility] Comment on above: Performed By: #### C BC, CMP #### [address] MCV (RBC) [Entitic vol] 82.7 fL Normal 80-100 [facility] Comment on above: Performed By: #### C BC, CMP #### [address] Mean Corpuscular HGB Conc 34.5 g/dL Normal 32.0-35.0 [facility] Comment on above: Performed By: #### C BC, CMP #### [place] [address] [place] Monocytes (Bld) [#/Vol] 0.7 10*3/uL Normal 0.0-0.8 [facility] Comment on above: Performed By: #### C BC, CMP #### [address] Monocytes/100 WBC (Bld) 7.0 % Normal . [facility] Comment on above: Performed By: #### C BC, CMP #### [address] Neutrophils (Bld) [#/Vol] 6.4 10*3/uL Normal 1.8-7.7 [facility] Comment on above: Performed By: #### C BC, CMP #### [address] Neutrophils/100 WBC (Bld) 65.2 % Normal . [facility] Comment on above: Performed By: #### C BC, CMP #### [address] NRBC% 0.2 /100{WBC} Normal 0-0.5 [facility] Comment on above: Performed By: #### C BC, CMP #### [place] [address] [place] Platelet mean volume (Bld) [Entitic vol] 8.2 fL Normal 6.3-10.7 [facility] Comment on above: Performed By: #### C BC, CMP #### [place] [address] [place] Platelets (Bld) [#/Vol] 379 10*3/uL Normal 150-450 [facility] Comment on above: Performed By: #### C BC, CMP #### [place] [address] [place] RBC (Bld) [#/Vol] 4.84 10*6/uL Normal 3.60-5.00 [facility] Comment on above: Performed By: #### C BC, CMP #### [address] WBC (Bld) [#/Vol] 9.8 10*3/uL Normal 3.8-11.6 [facility] Comment on above: Performed By: #### C BC, CMP #### [address] Comprehensive Metabolic Pane pillo 07-11-2023 Albumin [Mass/Vol] 4.3 g/dL Normal 3.5-5.7 [facility] Comment on above: Performed By: #### C BC, CMP #### [address] Albumin/Globulin [Mass ratio] 1.5 {ratio} Normal [facility] Comment on above: Performed By: #### C BC, CMP #### [address] ALP [Catalytic activity/Vol] 77 U/L Normal 34-104 [facility] Comment on above: Result Comment: PERF ORMED BY: [place] [address] PATHOLOGIST HOUSE ADMIN JADYN GUADARRAMA M.D. Performed By: #### C BC, CMP #### [address] ALT [Catalytic activity/Vol] 14 U/L Normal 7-52 [facility] Comment on above: Performed By: #### C BC, CMP #### [address] Anion gap [Moles/Vol] 10.6 mmol/L Normal 6.0-15.0 [facility] Comment on above: Performed By: #### C BC, CMP #### [address] AST [Catalytic activity/Vol] 16 U/L Normal 13-39 [facility] Comment on above: Performed By: #### C BC, CMP #### [facility] [address] [place] [address] [place] Bilirubin [Mass/Vol] 0.5 mg/dL Normal 0.3-1.0 [facility] Comment on above: Performed By: #### C BC, CMP #### [facility] [address] [place] [address] [place] Calcium [Mass/Vol] 9.6 mg/dL Normal 8.6-10.3 [facility] Comment on above: Performed By: #### C BC, CMP #### [facility] [address] Chloride [Moles/Vol] 103 mmol/L Normal 98-107 [facility] Comment on above: Performed By: #### C BC, CMP #### [facility] [address] [place] [address] [place] CO2 [Moles/Vol] 29.5 mmol/L Normal 21.0-31.0 [facility] Comment on above: Performed By: #### C BC, CMP #### [facility] [address] [place] [address] [place] Creatinine [Mass/Vol] 0.61 mg/dL Normal 0.60-1.20 [facility] Comment on above: Performed By: #### C BC, CMP #### [facility] [address] [place] [address] [place] GFR/1.73 sq M.predicted MDRD (S/P/Bld) [Vol rate/Area] mL/min/{1.73_m2} Normal [facility] Comment on above: Performed By: #### C BC, CMP #### [facility] [address] [place] [id number] [place] Globulin (S) [Mass/Vol] 2.9 g/dL Normal T [facility] Comment on above: Performed By: #### C BC, CMP #### [facility] [address] [place] [address] [place] Glucose [Mass/Vol] 75 mg/dL Normal 70-100 [facility] Comment on above: Result Comment: [place] Glucose Reference Range is dependent on time and content of last meal. Glucose of more than 200 mg/dL in a nonstressed, ambulatory subject supports the diagnosis of Diabetes Mellitus. ADA recommended reference range Performed By: #### C BC, CMP #### [facility] [address] Potassium [Moles/Vol] 4.1 mmol/L Normal 3.5-5.1 [facility] Comment on above: Performed By: #### C BC, CMP #### [facility] [address] Protein [Mass/Vol] 7.2 g/dL Normal 6.4-8.9 [facility] Comment on above: Performed By: #### C BC, CMP #### [facility] [address] Sodium [Moles/Vol] 139 mmol/L Normal 136-145 [facility] Comment on above: Performed By: #### C BC, CMP #### [facility] [address] [place] [address] [place] Urea nitrogen [Mass/Vol] 8 mg/dL Normal 7-25 [facility] Comment on above: Performed By: #### C BO, CMP #### [facility] [address] [place] [address] [place] Creatinine [Mass/volume] in Serum or PlasmaOrdered By: Cassandra Mixon on 07-11-2023 Creatinine [Mass/Vol] 0.61 mg/dL 0.60-1.20 [facility] Eosinophils Auto (Bld) [#/Vo l]Ordered By: Cassandra Mixon on 07-11-2023 Eosinophils (Bld) [#/Vol] 0.0 10*3/uL 0.0-0.45 [facility] Eosinophils/100 WBC Auto (Bl d)Ordered By: Cassadnra Mixon on 07-11-2023 Eosinophils/100 WBC (Bld) 0.0 % . [facility] Erythrocyte distribution wid th Auto (RBC) [Ratio]Ordered By: Cassandra Mixon on 07-11-2023 Erythrocyte distribution width (RBC) [Ratio] 13.0 % 11.9-15.3 [facility] Globulin Calc (S) [Mass/Vol] Ordered By: Cassandra Mixon on 07-11-2023 Globulin (S) [Mass/Vol] 2.9 g/dL F [facility] Glucose [Mass/volume] in Ser um or PlasmaOrdered By: Cassandra Mixon on 07-11-2023 Glucose [Mass/Vol] 75 mg/dL 70-100 [facility] Comment on above: ADA recommended refe rence rangeRandom Glucose Reference Range is dependent on time and content of last meal. Glucose of more than 200 mg/dL in a nonstressed, ambulatory subject supports the diagnosis of Diabetes Mellitus. Hematocrit Auto (Bld) [Volum e fraction]Ordered By: Cassandra Mixon on 07-11-2023 Hematocrit (Bld) [Volume fraction] 40.0 % 34.0-46.4 [facility] Hemoglobin [Mass/volume] in BloodOrdered By: Cassandra Mixon on 07-11-2023 Hemoglobin (Bld) [Mass/Vol] 13.8 g/dL 11.8-15.4 [facility] Leukocytes [#/volume] correc seb for nucleated erythrocytes in Blood by Automated counOrdered By: Cassandra Mixon on 07-11-2023 WBC corrected for nucl RBC Auto (Bld) [#/Vol] 9.8 10*3/uL 3.8-11.6 [facility] Lymphocytes Auto (Bld) [#/Vo l]Ordered By: Cassandra Mixon on 07-11-2023 Lymphocytes (Bld) [#/Vol] 2.7 10*3/uL 1.00-4.8 [facility] Lymphocytes/100 WBC Auto (Bl d)Ordered By: Cassandra Mixon on 07-11-2023 Lymphocytes/100 WBC (Bld) 27.6 % . [facility] MCH Auto (RBC) [Entitic mass ]Ordered By: Cassandra Mixon on 07-11-2023 MCH (RBC) [Entitic mass] 28.5 pg 24.7-34.3 [facility] MCHC Auto (RBC) [Mass/Vol]Or dered By: Cassandra Mixon on 07-11-2023 MCHC (RBC) [Mass/Vol] 34.5 g/dL 32.0-35.0 [facility] MCV Auto (RBC) [Entitic vol] Ordered By: Cassandra Mixon on 07-11-2023 MCV (RBC) [Entitic vol] 82.7 fL 80-100 [facility] Monocytes Auto (Bld) [#/Vol] Ordered By: Cassandra Mixon on 07-11-2023 Monocytes (Bld) [#/Vol] 0.7 10*3/uL 0.0-0.8 [facility] Monocytes/100 WBC Auto (Bld) Ordered By: Cassandra Mixon on 07-11-2023 Monocytes/100 WBC (Bld) 7.0 % . [facility] Neutrophils Auto (Bld) [#/Vo l]Ordered By: Cassandra Mixon on 07-11-2023 Neutrophils (Bld) [#/Vol] 6.4 10*3/uL 1.8-7.7 [facility] Neutrophils/100 WBC Auto (Bl d)Ordered By: Cassandra Mixon on 07-11-2023 Neutrophils/100 WBC (Bld) 65.2 % . [facility] No Panel InformationOrdered By: Cassandra Mixon on 07-11-2023 Estimated GFR (CKD-EPI) > 60.0 mL/Min [facility] Pharmacy Creatinine Clearance (Chem N/A [facility] Nucleated erythrocytes [Pres ence] in Blood by Automated countOrdered By: Cassandra Mixon on 07-11-2023 Nucleated RBC Auto Ql (Bld) 0.2 /100{WBC} 0-0.5 [facility] Platelet mean volume Auto (B ld) [Entitic vol]Ordered By: Cassandra Mixon on 07-11-2023 Platelet mean volume (Bld) [Entitic vol] 8.2 fL 6.3-10.7 [facility] Platelets Auto (Bld) [#/Vol] Ordered By: Cassandra Mixon on 07-11-2023 Platelets (Bld) [#/Vol] 379 10*3/uL 150-450 [facility] Potassium [Moles/volume] in Serum or PlasmaOrdered By: Cassandra Mixon on 07-11-2023 Potassium [Moles/Vol] 4.1 mmol/L 3.5-5.1 [facility] Protein [Mass/volume] in Ser um or PlasmaOrdered By: Cassandra Mixon on 07-11-2023 Protein [Mass/Vol] 7.2 g/dL 6.4-8.9 [facility] RBC Auto (Bld) [#/Vol]Ordere d By: Cassandra Mixon on 07-11-2023 RBC (Bld) [#/Vol] 4.84 10*6/uL 3.60-5.00 [facility] Serum or plasma albumin/glob ulin mass ratioOrdered By: Cassandra Mixon on 07-11-2023 Albumin/Globulin [Mass ratio] 1.5 {ratio} [facility] Serum or plasma anion gap de terminationOrdered By: Cassandra Mixon on 07-11-2023 Anion gap [Moles/Vol] 10.6 mmol/L 6.0-15.0 [facility] Sodium [Moles/volume] in Ser um or PlasmaOrdered By: Cassandra Mixon on 07-11-2023 Sodium [Moles/Vol] 139 mmol/L 136-145 [facility] Urea nitrogen [Mass/volume] in Serum or PlasmaOrdered By: Cassandra Mixon on 07-11-2023 Urea nitrogen [Mass/Vol] 8 mg/dL 7-25 [facility] WBC Auto (Bld) [#/Vol]Ordere d By: Cassandra Mixon on 07-11-2023 WBC (Bld) [#/Vol] 9.8 10*3/uL 3.8-11.6 [facility] PAP ACOG PANEL 2: 30 to 65on 09-24-2022 . . Normal [facility] Comment on above: Result Comment: Perf ormed at: BA Performed By: #### [id number] #### [facility] [address] [place] [address] Dr. Yamilka Woodson Age Gdln ACOG Testing 30-65 Normal [facility] Comment on above: Performed By: #### 4 [id number] #### [facility] [address] [place] [address] Dr. Yamilka Woodson DIAGNOSIS: Comment Normal [facility] Comment on above: Result Comment: NEGA TIVE FOR INTRAEPITHELIAL LESION OR MALIGNANCY. Performed at: BA Performed By: #### 4 [id number] #### [facility] [address] [place] [address] Dr. Yamilka Woodson HPV Aptima Negative Normal Negative [facility] Comment on above: Result Comment: This nucleic acid amplification test detects fourteen high-risk HPV types (16,18,31,33,35,39,45,51,52,56,58,59,66,68) without differentiation. Performed at: =G Performed By: #### 4 [id number] #### [facility] [address] [place] [address] Dr. Yamilka Woodson HPV Genotype Reflex Comment Normal [facility] Comment on above: Result Comment: Crit eria not met, HPV Genotype not performed. Performed at: BA Performed By: #### [id number] #### [facility] [address] [place] [address] Dr. Yamilka Woodson Methodology: Comment [facility] Comment on above: Result Comment: This liquid based ThinPrep(R) pap test was screened with the use of an image guided system. Performed at: WB Performed By: #### [id number] #### [facility] [address] [place] [address] Dr. Yamilka Woodson Note: Comment Normal [facility] Comment on above: Result Comment: The Pap smear is a screening test designed to aid in the detection of premalignant and malignant conditions of the uterine cervix. It is not a diagnostic procedure and should not be used as the sole means of detecting cervical cancer. Both false-positive and false-negative reports do occur. . Performed at: WB Performed By: #### 4 [id number] #### [facility] [address] [place] [address] Dr. Yamilka Woodson Performed by: Comment Normal [facility] Comment on above: Result Comment: Yfn Watson, Entry Examiner (ASCP) Performed at: Performed By: #### 4 [id number] #### [facility] [address] [place], [place] [address] Dr. Yamilka Woodson Specimen adequacy: Comment Normal [facility] Comment on above: Result Comment: Sati sfactory for evaluation. No endocervical component is identified. Performed at: Performed By: #### 4 [id number] #### [facility] [address] [place], [place] [address] Dr. Yamilka Woodson MRI Foot w/o Righton 022 MRI Foot w/o Right HISTORY: Right heel pain. Suspected plantar fasciitis. Concern for calcaneal stress fracture. TECHNIQUE: Routine MRI of the right ankle/hindfoot and portions of the midfoot Comparison: 02/09/2022 radiographs RESULT: CARTILAGE: The tibiotalar joint cartilage and subtalar joint cartilage appears to be preserved. TENDONS: Achilles tendon, medial flexor tendons, peroneal tendons, and extensor tendons are intact with normal signal LIGAMENTS: Talofibular ligaments, tibiofibular ligaments, calcaneofibular ligament, deltoid ligament, and spring ligament appear intact. JOINT FLUID: Physiologic quantity of joint fluid. BONE MARROW: Bone marrow signal intensity is within normal limits. PLANTAR APONEUROSIS: Mild to moderate thickening at origin, especially of the central band, without associated tear. Associated calcaneal enthesophyte. SINUS TARSI: Sinus tarsi is within normal limits. MUSCLE: Muscle bulk and signal intensity is within normal limits. TARSAL TUNNEL: Tarsal tunnel is within normal limits. OTHER: No other significant abnormality. IMPRESSION: Mild to moderate plantar fasciitis, without tear. No evidence for fracture. Report reported and signed by Calvin Wasserman on 06/19/2022 1321 Normal [facility] Stroke Belt Sander Operator Q - CBC (H/H,RBC,INDICES,WBC ,PLT)on 03-24-2022 Erythrocyte distribution width (RBC) [Ratio] 13.2 % Normal 11.0-15.0 [facility] Stroke Belt Sander Operator Comment on above: Order Comment: [facility] Testing performed at: QPT, [facility], [address] [place] [address], [address] [place] [address], [address] [place] [address], Blanket Winder Helper: Aaron Mendiola MD [facility] Collection Date/Time: [facility] Results Received Date/Time: [facility] Reported Date/Time: FASTING: NO Performed By: #### 1 759, [id number] #### [facility] [address] [place] [address] Hematocrit (Bld) [Volume fraction] 38.6 % Normal 35.0-45.0 [facility] Stroke Belt Sander Operator Comment on above: Order Comment: [facility] performed at: [employer], Currently [facility], [address] [place] [address], [address] [place] [address], [address] [place] [address], Blanket Winder Helper: Aaron Mendiola MD [facility] Collection Date/Time: [facility] Results Received Date/Time: [facility] Reported Date/Time: FASTING: NO Performed By: #### 1 759, [id number] #### [facility] [address] [place] [address] Hemoglobin (Bld) [Mass/Vol] 13.5 g/dL Normal 11.7-15.5 [facility] Stroke Belt Sander Operator Comment on above: Order Comment: [facility] performed at: [facility], [address] [facility], [address] [place] [address], [address] [place] [address], Blanket Winder Helper: Aaron Mendiola MD [facility] Collection Date/Time: [facility] Results Received Date/Time: [facility] Reported Date/Time: FASTING: NO Performed By: #### 1 759, [id number] #### [facility] [address] [place] [address] MCH (RBC) [Entitic mass] 29.0 pg Normal 27.0-33.0 [facility] Stroke Belt Sander Operator Comment on above: Order Comment: [facility] performed at: [employer], Currently [facility], [address] [facility], [address] [place] [address], [address] [place] [address], Blanket Winder Helper: Aaron Mendiola MD [facility] Collection Date/Time: [facility] Results Received Date/Time: [facility] Reported Date/Time: FASTING: NO Performed By: #### 1 759, [id number] #### [facility] [address] [place] [address] MCHC (RBC) [Mass/Vol] 35.0 g/dL Normal 32.0-36.0 [facility] Specialist Comment on above: Order Comment: [facility] performed at: [employer], Currently [facility], [address] [place] [address], [address] [place] [address], [address] [place] [address], Blanket Winder Helper: Aaron Mendiola MD [facility] Collection Date/Time: [facility] Results Received Date/Time: [facility] Reported Date/Time: FASTING: NO Performed By: #### 1 759, [id number] #### [facility] [address] [place] [address] MCV (RBC) [Entitic vol] 83.0 fL Normal 80.0-100.[address] [facility] Specialist Comment on above: Order Comment: [facility] performed at: [facility], [address] [place] [address], [address] [place] [address], [address] [place] [address], Blanket Winder Helper: Aaron Mendiola MD [facility] Collection Date/Time: [facility] Results Received Date/Time: [facility] Reported Date/Time: FASTING: NO Performed By: #### 1 759, [id number] #### [facility] [address] [place] [address] Platelet mean volume (Bld) [Entitic vol] 10.3 fL Normal 7.5-12.5 [facility] Stroke Belt Sander Operator Comment on above: Order Comment: [facility] performed at: [employer], Currently [facility], [address] [facility], [address] [place] [address], [address] [place] [address], Blanket Winder Helper: Aaron Mendiola MD [facility] Collection Date/Time: [facility] Results Received Date/Time: [facility] Reported Date/Time: FASTING: NO Performed By: #### 1 759, [id number] #### [facility] Default [address] [place] [address] Platelets (Bld) [#/Vol] 348 10*3/uL Normal 140-400 [facility] Comment on above: Order Comment: [facility] performed at: [employer], Currently [facility], [address] [facility], [address] [place] [address], [address] [place] [address], Blanket Winder Helper: Aaron Mendiola MD [facility] Collection Date/Time: [facility] Results Received Date/Time: [facility] Reported Date/Time: FASTING: NO Performed By: #### 1 759, [id number] #### [facility] Default [address] [place] [address] RBC (Bld) [#/Vol] 4.65 10*6/uL Normal 3.80-5.10 [facility] Comment on above: Order Comment: [facility] performed at: [employer], Currently [facility], [address] [place] [address], [address] [place] [address], [address] [place] [address], Blanket Winder Helper: Aaron Mendiola MD [facility] Collection Date/Time: [facility] Results Received Date/Time: [facility] Reported Date/Time: FASTING: NO Performed By: #### 1 759, [id number] #### [facility] Default [address] [place] [address] WBC (Bld) [#/Vol] 10.2 10*3/uL Normal 3.8-10.8 [facility] Comment on above: Order Comment: [facility] performed at: [employer], Currently [facility], [address] , [address] [place] [address], [address] [place] [address], Blanket Winder Helper: Aaron Mendiola MD [facility] Collection Date/Time: [facility] Results Received Date/Time: [facility] Reported Date/Time: FASTING: NO Performed By: #### 1 759, [id number] #### [facility] [address] [place] [address] Q - COMPREHENSIVE METABOLIC PANEL W/EGFRon 03-24-2022 Albumin [Mass/Vol] 4.2 g/dL Normal 3.6-5.1 [facility] Specialist Comment on above: Order Comment: [facility] performed at: [employer], Currently [facility], [address] [place] [address], [address] [place] [address], [address] [place] [address], Blanket Winder Helper: Aaron Dixon Collection Date/Time: [id number] Results Received Date/Time: [id number] Reported Date/Time: FASTING: NO Performed By: #### 1 759, [id number] ####[facility] [address] [place] [address] Albumin/Globulin [Mass ratio] 1.7 {ratio} Normal 1.0-2.5 [facility] Stroke Belt Sander Operator Comment on above: Order Comment: [facility] performed at: [facility], [address] [place] [address], [address] [place] [address], [address] [place] [address], Blanket Winder Helper: Aaron Dixon Collection Date/Time: [id number] Results Received Date/Time: [id number] Reported Date/Time: FASTING: NO Performed By: #### 1 759, [id number] ####[facility] [address] [place] [address] ALP [Catalytic activity/Vol] 72 U/L Normal 31-125 [facility] Stroke Belt Sander Operator Comment on above: Order Comment: [facility] performed at: [facility], [address] [place] [address], [address] [place] [address], [address] [place] [address], Blanket Winder Helper: Aaron Dixon Collection Date/Time: [id number] Results Received Date/Time: [id number] Reported Date/Time: [id number] FASTING: NO Performed By: #### 1 759, [id number] ####[facility] [address] [place] [address] ALT [Catalytic activity/Vol] 14 U/L Normal 6-29 [facility] Stroke Belt Sander Operator Comment on above: Order Comment: [facility] performed at: [employer], Currently [facility], [address] [place] [address], [address] [place] [address], [address] [place] [address], Blanket Winder Helper: Aaron Dixon Collection Date/Time: [id number] Results Received Date/Time: [id number] Reported Date/Time: FASTING: NO Performed By: #### 1 759, [id number] ####[facility] [address] [place] [address] AST [Catalytic activity/Vol] 13 U/L Normal 10-30 [facility] Stroke Belt Sander Operator Comment on above: Order Comment: [facility] performed at: [employer], Currently [facility], [address] [place] [address], [address] [place] [address], [address] [place] [address], Blanket Winder Helper: Aaron Dixon Collection Date/Time: [id number] Results Received Date/Time: [id number] Reported Date/Time: FASTING: NO Performed By: #### 1 759, [id number] ####[facility] [address] [place] [address] Bilirubin [Mass/Vol] 0.7 mg/dL Normal 0.2-1.2 [facility] Comment on above: Order Comment: [facility] performed at: [employer], Currently [facility], [address] [place] [address], [address] [place] [address], [address] [place] [address], Blanket Winder Helper: Aaron Dixon Collection Date/Time: [id number] Results Received Date/Time: [id number] Reported Date/Time: FASTING: NO Performed By: #### 1 759, [id number] ####[facility] [address] [place] [address] Calcium [Mass/Vol] 9.3 mg/dL Normal 8.6-10.2 [facility] Stroke Belt Sander Operator Comment on above: Order Comment: [facility] performed at: [employer], Currently [facility], [address] [place] [address], [address] [place] [address], [address] [place] [address], Blanket Winder Helper: Aaron Dixon Collection Date/Time: [id number] Results Received Date/Time: [id number] Reported Date/Time: FASTING: NO Performed By: #### 1 759, [id number] ####[facility] [address] [place] [address] Chloride [Moles/Vol] 104 mmol/L Normal 98-110 [facility] Specialist Comment on above: Order Comment: [facility] performed at: [employer], Currently [facility], [address] [place] [address], [address] [place] [address], [address] [place] [address], Blanket Winder Helper: Aaron Dixon Collection Date/Time: [id number] Results Received Date/Time: [id number] Reported Date/Time: FASTING: NO Performed By: #### 1 759, [id number] ####[facility] [address] [place] [address] CO2 [Moles/Vol] 25 mmol/L Normal 20-32 [facility] Stroke Belt Sander Operator Comment on above: Order Comment: [facility] performed at: [employer], Currently [facility], [address] [facility], [address] [place] [address], [address] [place] [address], Blanket Winder Helper: Aaron Dixon Collection Date/Time: [id number] Results Received Date/Time: [id number] Reported Date/Time: FASTING: NO Performed By: #### 1 759, [id number] ####[facility] [address] [place] [address] Creatinine [Mass/Vol] 0.47 mg/dL Low 0.50-1.10 [facility] Stroke Belt Sander Operator Comment on above: Order Comment: [facility] performed at: [employer], Currently [facility], [address] , [address] [place] [address], [address] [place] [address], Blanket Winder Helper: Aaron Dixon Collection Date/Time: [id number] Results Received Date/Time: [id number] Reported Date/Time: FASTING: NO Performed By: #### 1 759, [id number] ####[facility] [address] [place] [address] eGFRAA ([facility]) 142 mL/min/1.73m2 Normal > OR = 60 [facility] [place] Stroke Belt Sander Operator Comment on above: Order Comment: [facility] performed at: [employer], Currently [facility], [address] [facility], [address] [place] [address], [address] [place] [address], Blanket Winder Helper: Aaron Dixon Collection Date/Time: [id number] Results Received Date/Time: [id number] Reported Date/Time: FASTING: NO Performed By: #### 1 759, [id number] ####[facility] [address] [place] [address] eGFRNAA ([facility]) 123 mL/min/1.73m2 Normal > OR = 60 No [facility] [place] Stroke Belt Sander Operator Comment on above: Order Comment: [facility] performed at: [facility], [address] [place] [address], [address] [place] [address], [id number], Blanket Winder Helper: Aaron Dixon Collection Date/Time: [id number] Results Received Date/Time: [id number] Reported Date/Time: FASTING: NO Performed By: #### 1 759, [id number] ####[facility] [address] [place] [address] Globulin (S) [Mass/Vol] 2.5 g/dL Normal 1.9-3.7 N [facility] [place] Stroke Belt Sander Operator Comment on above: Order Comment: [facility] performed at: [employer], Currently [facility], [address] [facility], [address] [place] [address], [address] [place] [address], Blanket Winder Helper: Aaron Dixon Collection Date/Time: [id number] Results Received Date/Time: [id number] Reported Date/Time: FASTING: NO Performed By: #### 1 759, [id number] ####[facility] [address] [place] [address] Glucose [Mass/Vol] 75 mg/dL Normal 65-139 Jennifer farfan [place] Stroke Belt Sander Operator Comment on above: Order Comment: [facility] performed at: [employer], Currently [facility], [address] [place] [address], [address] [place] [address], [address] [place] [address], Blanket Winder Helper: Aaron Dixon Collection Date/Time: [id number] Results Received Date/Time: [id number] Reported Date/Time: FASTING: NO Result Comment: Non-fasting reference interval Performed By: #### 1 759, [id number] ####[facility] [address] [place] [address] Potassium [Moles/Vol] 3.8 mmol/L Normal 3.5-5.3 Isacc tam [place] Stroke Belt Sander Operator Comment on above: Order Comment: [facility] performed at: [facility], [address] [facility], [address] [place] [address], [address] [place] [address], Blanket Winder Helper: Aaron Dixon Collection Date/Time: [id number] Results Received Date/Time: [id number] Reported Date/Time: FASTING: NO Performed By: #### 1 759, [id number] ####[facility] [address] [place] [address] Protein [Mass/Vol] 6.7 g/dL Normal 6.1-8.1 Jennifer farfan [place] Stroke Belt Sander Operator Comment on above: Order Comment: [facility] performed at: [employer], Currently [facility], [address] [facility], [address] [place] [address], [address] [place] [address], Blanket Winder Helper: Aaron Dixon Collection Date/Time: [id number] Results Received Date/Time: [id number] Reported Date/Time: FASTING: NO Performed By: #### 1 759, [id number] ####[facility] [address] [place] [address] Sodium [Moles/Vol] 138 mmol/L Normal 135-146 [facility] Comment on above: Order Comment: Quest performed at: [employer], Currently [facility], [address] [facility], [address] [place] [address], , Blanket Winder Helper: Aaron Dixon Collection Date/Time: [id number] Results Received Date/Time: [id number] Reported Date/Time: FASTING: NO Performed By: #### 1 759, [id number] ####[facility] [address] [place] [address] Urea nitrogen [Mass/Vol] 7 mg/dL Normal 7-25 [facility] Specialist Comment on above: Order Comment: Quest performed at: [facility], [address] [place] [address], [address] [place] [address], [phone], Blanket Winder Helper: Aaron Dixon Collection Date/Time: [id number] Results Received Date/Time: [id number] Reported Date/Time: FASTING: NO Performed By: #### 1 759, [id number] ####[facility] [address] [place] [address] Urea nitrogen/Creatinine [Mass ratio] 15 mg/mg Normal 6-22 [facility] Stroke Belt Sander Operator Comment on above: Order Comment: Quest performed at: [facility], [address] [facility], [address] [place] [address], [phone], Blanket Winder Helper: Aaron Dixon Collection Date/Time: [id number] Results Received Date/Time: [id number] Reported Date/Time: FASTING: NO Performed By: #### 1 759, [id number] ####[facility] [address] [place] [address] Vitamin D 25-OHon 02-03-2022 VIT D 25 OH 33 ng/ml Normal >29 [facility] Stroke Belt Sander Operator Comment on above: Result Comment: Sheri min D Status Deficiency <20 ng/mL Insufficiency 20-29 ng/mL Optimal 30-100 ng/mL Possible Toxicity >=150 ng/mL Performed By: #### V ITD #### [facility] [address] [place] [id number] XR foot RT min 3V*on 022 XR foot RT min 3V* [facility] Other XR foot RT min 3V* [facility] Other XR foot RT min 3V* [address] [place] [address] [employer] [facility] Other XR foot RT min 3V* [place] [address] [facility] Other XR foot RT min 3V* XRay Report [facility] Other XR foot RT min 3V* Signed [facility] Other XR foot RT min 3V* Patient: Georgette Wu MR#: [id number] [facility] Other XR foot RT min 3V* 5074 [facility] Other XR foot RT min 3V* : 1980 Acct:[id number] [facility] Other XR foot RT min 3V* Age/Sex: 41 / F ADM Date: 01/14/22 [facility] Other XR foot RT min 3V* Loc: XDUCLY Room: Type: [facility] Other XR foot RT min 3V* Attending Dr: Ashley Mayer APRN [facility] Other XR foot RT min 3V* Ordering Provider: sAhley Mayer APRN [facility] Other XR foot RT min 3V* Date of Service: 01/14/22 [facility] Other XR foot RT min 3V* XR/XR foot RT min 3V*: RIGHT FOOT INJURY [facility] Other XR foot RT min 3V* Copies to: Ashley Mayer TRAILER ASSEMBLER [facility] Other XR foot RT min 3V* Right foot 01/14/2022. [facility] Other XR foot RT min 3V* CLINICAL DATA: Right foot pain after injury. [facility] Other XR foot RT min 3V* FINDINGS: 3 views of the right foot were obtained. [facility] Other XR foot RT min 3V* No acute fracture or dislocation is identified. There is posterior and plantar calcaneal spurring. [facility] Other XR foot RT min 3V* No other bony abnormality is seen. No significant soft tissue swelling is noted. [facility] Other XR foot RT min 3V* XR/XR foot RT min 3V* [facility] Other XR foot RT min 3V* IMPRESSION: Calcaneal spurring. No acute bony abnormality. [facility] Other XR foot RT min 3V* Impression dictated by: Sergo Bautista Jr., M.D.01/14/2022 2:45 PM [facility] Other XR foot RT min 3V* Dictation Location: [place] [address] [facility] Other XR foot RT min 3V* Transcribed By: NATASHA 01/14/22 1445 [facility] Other XR foot RT min 3V* Dictated By: Sergo Bautista Jr, MD 01/14/22 1439 [facility] Other XR foot RT min 3V* Signed By: [facility] Other XR foot RT min 3V* 01/14/22 1445 [facility] Other XR Abdomen 2 Viewson 022 XR Abdomen 2 Views HISTORY: Generalized lower abdominal pain FINDINGS: Small to moderate volume of colon stool (normal) normally distributed throughout the abdomen and pelvis. No small bowel dilatation. No mass effect. No urinary tract stones. Cholecystectomy clips. Normal lung bases. IMPRESSION: Normal volume of stool, no obstruction. If symptoms persist following appropriate medical management, CT Imaging may be of assistance. Report reported and signed by Benjamin Cain on 12/21/2021 0911 Normal [facility] Complete Blood Counton 11-28 Erythrocyte distribution width (RBC) [Ratio] 12.9 % Normal 11.0-15.0 [facility] Specialist Comment on above: Performed By: #### L IPD, CBC, CMP, VITD #### [facility] [address] [place], [place] [id number] Hematocrit (Bld) [Volume fraction] 38.3 % Normal 35.0-47.0 [facility] Specialist Comment on above: Performed By: #### L IPD, CBC, CMP, VITD #### [facility] [address], [place] [id number] Hemoglobin (Bld) [Mass/Vol] 12.8 g/dL Normal 11.6-15.5 [facility] Comment on above: Performed By: #### L IPD, CBC, CMP, VITD #### [facility] [address], [place] [id number] MCH (RBC) [Entitic mass] 28.2 pg Normal 27.0-33.0 [facility] Comment on above: Performed By: #### L IPD, CBC, CMP, VITD #### [facility] [address], [place] [id number] MCHC (RBC) [Mass/Vol] 33.4 g/dL Normal 32.0-36.0 [facility] Comment on above: Performed By: #### L IPD, CBC, CMP, VITD #### [facility] [address], [place] [id number] MCV (RBC) [Entitic vol] 84 fL Normal 80-100 [facility] Comment on above: Performed By: #### L IPD, CBC, CMP, VITD #### [facility] [address], [place] [id number] Platelet mean volume (Bld) [Entitic vol] 10.30 fL Normal 7.50-12.50 [facility] Comment on above: Performed By: #### L IPD, CBC, CMP, VITD #### [facility] [address], [place] [id number] Platelets (Bld) [#/Vol] 302 10*3/uL Normal 140-400 [facility] Comment on above: Performed By: #### L IPD, CBC, CMP, VITD #### [facility] [address], [place] [id number] RBC (Bld) [#/Vol] 4.54 10*6/uL Normal 3.90-5.20 [facility] Specialist Comment on above: Performed By: #### L IPD, CBC, CMP, VITD #### [facility] [address], [place] [id number] RDW-SD 39.8 fL Normal 37.0-50.0 [facility] Comment on above: Performed By: #### L IPD, CBC, CMP, VITD #### [facility] [address], [place] [id number] WBC (Bld) [#/Vol] 10.5 10*3/uL Normal 3.8-11.0 [facility] Specialist Comment on above: Performed By: #### L IPD, CBC, CMP, VITD #### [facility] [address], [place] [id number] Comprehensive Metabolic Pane pillo 11-28-2021 Albumin [Mass/Vol] 4.3 g/dL Normal 3.6-5.1 [facility] Specialist Comment on above: Performed By: #### L IPD, CBC, CMP, VITD #### [facility] [address], [place] [id number] Albumin/Globulin [Mass ratio] 2.0 {ratio} Normal 1.0-2.5 [facility] Comment on above: Performed By: #### L IPD, CBC, CMP, VITD #### [facility] [address], [place] [id number] ALP [Catalytic activity/Vol] 97 U/L Normal 35-119 [facility] Special[facility] Comment on above: Performed By: #### L IPD, CBC, CMP, VITD #### [facility] [address], [place] [id number] ALT [Catalytic activity/Vol] 9 U/L Normal 6-33 [facility] Comment on above: Result Comment: 10/19 Female reference range changed. Performed By: #### L IPD, CBC, CMP, VITD #### [facility] [address], [place] [id number] Anion gap [Moles/Vol] 17 mmol/L Normal 12-20 [facility] Specialist Comment on above: Result Comment: Effe ctive 11/24/2019 reference range changed. Performed By: #### L IPD, CBC, CMP, VITD #### [facility] [address], [place] [id number] AST [Catalytic activity/Vol] 11 U/L Normal 9-34 [facility] Special[facility] Comment on above: Performed By: #### L IPD, CBC, CMP, VITD #### [facility] [address], [place] [id number] Bilirubin [Mass/Vol] 0.96 mg/dL Normal 0.30-1.20 [facility] Specialist Comment on above: Performed By: #### L IPD, CBC, CMP, VITD #### [facility] [address], [place] [id number] BUN/CREA 21 Ratio Normal 6-22 [facility] Comment on above: Performed By: #### L IPD, CBC, CMP, VITD #### [facility] [address], [place] [id number] Calcium [Mass/Vol] 9.1 mg/dL Normal 8.6-10.2 Jennifer farfan [place] Stroke Belt Sander Operator Comment on above: Performed By: #### L IPD, CBC, CMP, VITD #### [facility] [address], [place] [id number] Chloride [Moles/Vol] 104 mmol/L Normal 98-107 [facility] Specialist Comment on above: Performed By: #### L IPD, CBC, CMP, VITD #### [facility] [address], [place] [id number] CO2 [Moles/Vol] 23 mmol/L Normal 20-31 [facility] Comment on above: Performed By: #### L IPD, CBC, CMP, VITD #### [facility] [address], [place] [id number] Creatinine [Mass/Vol] 0.4 mg/dL Low 0.6-1.4 [facility] Specialist Comment on above: Performed By: #### L IPD, CBC, CMP, VITD #### [facility] [address], [place] [id number] eGFRAA 234 mL/min/1.73m2 Normal >60 [facility] Specialist Comment on above: Performed By: #### L IPD, CBC, CMP, VITD #### [facility] [address], [place] [id number] eGFRNAA 193 mL/min/1.73m2 Normal >60 [facility] Specialist Comment on above: Performed By: #### L IPD, CBC, CMP, VITD #### [facility] [address], [place] [id number] Globulin (S) [Mass/Vol] 2.2 g/dL Normal 1.9-3.7 [facility] Specialist Comment on above: Performed By: #### L IPD, CBC, CMP, VITD #### [facility] [address], [place] [id number] Glucose [Mass/Vol] 78 mg/dL Normal 65-99 Jennifer farfan [place] Stroke Belt Sander Operator Comment on above: Result Comment: For FASTING Glucose --- ADA reference ranges: Normal 65-99 mg/dl Prediabetes 100-125 Diabetes >/= 126 Performed By: #### L IPD, CBC, CMP, VITD #### [facility] [address], [place] [id number] Potassium [Moles/Vol] 3.7 mmol/L Normal 3.5-5.5 [facility] Comment on above: Performed By: #### L IPD, CBC, CMP, VITD #### [facility] [address], [place] [id number] Protein [Mass/Vol] 6.5 g/dL Normal 6.1-8.1 Jennifer [facility] Stroke Belt Sander Operator Comment on above: Performed By: #### L IPD, CBC, CMP, VITD #### [facility] [address], [place] [id number] Sodium [Moles/Vol] 139 mmol/L Normal 135-146 Jennifer [facility] Stroke Belt Sander Operator Comment on above: Performed By: #### L IPD, CBC, CMP, VITD #### [facility] [address], [place] [id number] Urea nitrogen [Mass/Vol] 8 mg/dL Normal 7-25 [facility] Stroke Belt Sander Operator Comment on above: Performed By: #### L IPD, CBC, CMP, VITD #### [facility] [address], [place] [id number] Lipid Panelon 11-28-2021 Cholesterol [Mass/Vol] 196 mg/dL Normal 125-200 No [facility] Comment on above: Result Comment: Low risk < 200mg/dL Borderline risk 201-239 mg/dl High risk > or equal to 240 Performed By: #### L IPD, CBC, CMP, VITD #### [facility] [address], [place] [id number] Cholesterol in HDL [Mass/Vol] 45 mg/dL Normal >40 [facility] Stroke Belt Sander Operator Comment on above: Result Comment: High Cardiovascular Risk HDL <40 mg/dL Low Cardiovascular Risk HDL > or equal to 60 mg/dl Performed By: #### L IPD, CBC, CMP, VITD #### [facility] [address], [place] [id number] Cholesterol in LDL [Mass/Vol] 127 mg/dL Normal [facility] Comment on above: Result Comment: LDL ATP III CLASSIFICATION LDL less than 100 mg/dl Optimal LDL 100-129 mg/dl Near or above optimal LDL 130-159 Borderline high LDL 160-189 High LDL greater than 189 mg/dl Very High Performed By: #### L IPD, CBC, CMP, VITD #### [facility] [address], [place] [id number] Cholesterol in VLDL [Mass/Vol] 24 mg/dL Normal [facility] Comment on above: Performed By: #### L IPD, CBC, CMP, VITD #### [facility] [address], [place] [id number] Cholesterol.total/Choles terol in HDL [Mass ratio] 4 {ratio} Normal [facility] Comment on above: Performed By: #### L IPD, CBC, CMP, VITD #### [facility] [address], [place] [id number] Triglyceride [Mass/Vol] 120 mg/dL Normal 30-150 [facility] Comment on above: Result Comment: TRIG ATPIII CLASSIFICATIONS TRIG less than 150 mg/dl Normal TRIG 150-199 mg/dl Borderline High TRIG 200-500 mg/dl High TRIG greather than 500 mg/dl Very High Performed By: #### L IPD, CBC, CMP, VITD #### [facility] [address], [place] [id number] Vitamin D 25-OHon 11-28-2021 VIT D 25 OH 27 ng/ml Low >29 [facility] Comment on above: Result Comment: Sheri min D Status Deficiency <20 ng/mL Insufficiency 20-29 ng/mL Optimal 30-100 ng/mL Possible Toxicity >=150 ng/mL Performed By: #### L IPD, CBC, CMP, VITD #### [facility] [address], [place] [id number] XR Abdomen Series w/PA Chest on 11-28-2021 XR Abdomen Series w/PA Chest HISTORY: Left lower quadrant abdominal pain FINDINGS: No acute cardiac or pulmonary disease is identified. No worrisome mass lesions or infiltrates are seen. No pulmonary edema or pneumothorax is present. Cardiac silhouette size is normal. Skeletal structures are unremarkable. Normal volume of stool throughout the colon. No evidence of bowel obstruction, free air or mass effect. No intrarenal or urinary tract stones above the pelvic brim. Bilateral 2 mm pelvic calcifications, likely phleboliths. IMPRESSION: Normal volume of stool, no evidence of bowel obstruction. Report reported and signed by Benjamin Cain on 11/28/2021 1419 Normal [facility] Specialist Vital Signs Date Time Vital Sign Value Performing Clinician Facility 09-24-2024 14:59-0500 Body mass index (BMI) [Ratio] 38.07 kg/m2 Ashley Pump FRENCH BINDER Work Phone: [facility] 09-24-2024 14:59-0500 Body temperature 98.01 [degF] Ashley Pump FRENCH BINDER Work Phone: [facility] 09-24-2024 14:59-0500 Body weight 100.61 kg Ashley Pump FRENCH BINDER Work Phone: [facility] 09-24-2024 14:59-0500 Diastolic blood pressure 82 mm[Hg] Ashley Pump FRENCH BINDER Work Phone: [facility] 09-24-2024 14:59-0500 Heart rate 84 /min Ashley Pump FRENCH BINDER Work Phone: [facility] 09-24-2024 14:59-0500 Systolic blood pressure 128 mm[Hg] Ashley Pump FRENCH BINDER Work Phone: [facility] 09-03-2024 08:58-0400 Diastolic blood pressure 93 mm[Hg] Almaz Verhoff PA-C Work Phone: [facility] 09-03-2024 08:58-0400 Heart rate 76 /min Almaz Verhoff PA-C Work Phone: [facility] 09-03-2024 08:58-0400 Respiratory rate 20 /min Almaz Verhoff PA-C Work Phone: [facility] 09-03-2024 08:58-0400 Systolic blood pressure 142 mm[Hg] Almaz Verhoff PA-C Work Phone: [facility] 08-27-2024 09:34-0400 Body mass index (BMI) [Ratio] 37.97 kg/m2 Ashley Pump FRENCH BINDER Work Phone: [facility] 08-27-2024 09:34-0400 Body weight 100.34 kg Ashley Pump [employer]ENCH B[employer]ER Work Phone: [facility] 08-27-2024 09:34-0400 Diastolic blood pressure 84 mm[Hg] Ashley Pump FRENCH BINDER Work Phone: [facility] 08-27-2024 09:34-0400 Heart rate 80 /min Ashley Pump FRENCH BINDER Work Phone: [facility] 08-27-2024 09:34-0400 Systolic blood pressure 130 mm[Hg] Ashley Pump FRENCH BINDER Work Phone: [facility] 07-28-2024 09:04-0400 Body height 165.1 cm [facility] 07-28-2024 09:04-0400 Body mass index (BMI) [Ratio] 35.6 kg/m2 [facility] 07-28-2024 09:04-0400 Body weight 97 kg [facility] 03-05-2024 10:15-0400 Body height 162.56 cm [facility] 03-05-2024 10:15-0400 Body mass index (BMI) [Ratio] 36.3 kg/m2 [facility] 03-05-2024 10:15-0400 Body weight 96.16 kg [facility] 12-25-2023 13:34-0500 Body mass index (BMI) [Ratio] 36.87 kg/m2 Rianna Kasper [employer]ENCH B[employer]ER Work Phone: [facility] 12-25-2023 13:34-0500 Body weight 97.43 kg Rianna Kasper FRENCH BINDER Work Phone: [facility] 12-25-2023 13:34-0500 Diastolic blood pressure 80 mm[Hg] Rianna Kasper FRENCH B[employer]ER Work Phone: [facility] 12-25-2023 13:34-0500 Heart rate 76 /min Rianna Obrienel [employer]ER Work Phone: [facility] 12-25-2023 13:34-0500 Systolic blood pressure 110 mm[Hg] Rianna Kasper Work Phone: [facility] 12-05-2023 10:30-0500 Body height 162.56 cm Yannick Connie Other [facility] Other 12-05-2023 10:30-0500 Body mass index (BMI) [Ratio] 36.04 kg/m2 Yannick Connie Other [facility] Other 12-05-2023 10:30-0500 Body weight 95.26 kg Yannick Connie Other [facility] Other 03-28-2022 14:30-0400 Body height 162.56 cm Yannick Connie Other [facility] Other 03-28-2022 14:30-0400 Body mass index (BMI) [Ratio] 37.76 kg/m2 Yannick Connie Other [facility] Other 03-28-2022 14:30-0400 Body weight 99.79 kg Yannick Connie Other [facility] Other 03-28-2022 14:30-0400 Diastolic blood pressure 83 mm[Hg] Yannick Rosales Other [facility] Other 03-28-2022 14:30-0400 Systolic blood pressure 126 mm[Hg] Yannick Rosales Other [facility] Other 02-08-2022 10:15-0400 Body height 162.56 cm Yannick Rosales Other [facility] Other 02-08-2022 10:15-0400 Body mass index (BMI) [Ratio] 37.76 kg/m2 Yannick Rosales Other [facility] Other 02-08-2022 10:15-0400 Body weight 99.79 kg Yannick Rosales Other [facility] Other 01-14-2022 15:05-0500 Body height 162.56 cm Ashley Mayer Other [facility] Other 01-14-2022 15:05-0500 Body mass index (BMI) [Ratio] 37.59 kg/m2 Ashley Mayer Other [facility] Other 01-14-2022 15:05-0500 Body weight 99.34 kg Ashley Mayer Other [facility] Other 01-14-2022 15:05-0500 Diastolic blood pressure 83 mm[Hg] Aslhey Mayer Other [facility] Other 01-14-2022 15:05-0500 Systolic blood pressure 124 mm[Hg] Ashley Mayer Other [facility] Other Encounters Encounter Date Encounter Type Care Provider Facility Start: 09-26-2024 End: 09-28-2024 Refjamil Castañeda MD Work Phone: [facility] Comment on above: Irritable bowel synd norah with diarrhea (Primary Dx) Start: 09-24-2024 End: 09-24-2024 Office outpatient visit 15 minutes Ashley Pump [employer]ER Work Phone: [facility] Comment on above: Non-recurrent acute suppurative otitis media of both ears without spontaneous rupture of tympanic membranes (Primary Dx); Tinnitus of left ear Start: 09-24-2024 End: 09-24-2024 ambulatory ASHLEY PUMP Not Available Start: 09-24-2024 End: 09-24-2024 Bamboo flowsheet Ashley Pump [employer]ER Work Phone: [facility] Start: 09-24-2024 End: 09-24-2024 Bamboo flowsheet Ashley Pump [employer]ER Work Phone: [facility] Start: 09-24-2024 ambulatory ALMAZ N RASHARD [facility] Start: 09-08-2024 End: 09-08-2024 Refill Rianna Kasper [employer] Work Phone: [facility] Comment on above: Heartburn Start: 09-04-2024 End: 09-04-2024 ambulatory DOMINIK MAU Not Available Start: 09-04-2024 End: 09-04-2024 Office outpatient visit 25 minutes Honey De Leon DO Work Phone: [facility] Comment on above: Chronic low back linda n, unspecified back pain laterality, unspecified whether sciatica present (Primary Dx); Degeneration of intervertebral disc of lumbar region with discogenic back pain and lower extremity pain; Chronic bilateral low back pain with bilateral sciatica; Degenerative disc disease at L5-S1 level; Herniated intervertebral disc of lumbar spine; Lumbosacral spondylosis without myelopathy Start: 09-04-2024 End: 09-04-2024 ambulatory HONEY Lorena LUDIVINA Not Available Start: 09-04-2024 End: 09-04-2024 Phys/qhp telephone evaluation 5-10 min Dominik Matutezio DO Work Phone: [facility] Comment on above: Hot flashes; Hormone imbalance; Asymptomatic menopausal state Start: 09-03-2024 ambulatory ALMAZ Barreto RASHARD [facility] Start: 09-03-2024 End: 09-03-2024 Office outpatient visit 25 minutes Almaz Wetzel PA-C Work Phone: [facility] Comment on above: Lumbar spondylosis ( Primary Dx); Disorder of sacrum; Spinal stenosis of lumbar region with neurogenic claudication Start: 09-03-2024 End: 09-03-2024 ambulatory ALMAZ N [facility] Start: 09-02-2024 End: 09-02-2024 Orders Only Rianna Kasper TRAILER ASSEMBLER-[employer]A JERKER Work Phone: [facility] Comment on above: Diarrhea, unspecifie d Start: 08-27-2024 End: 08-27-2024 Bamboo flowsheet Ashley Pump [employer] Work Phone: [facility] Start: 08-27-2024 End: 08-27-2024 Bamboo flowsheet Ashley Pump [employer] Work Phone: [facility] Start: 08-27-2024 End: 08-27-2024 Office outpatient visit 25 minutes Ashley Pump [employer] Work Phone: [facility] Comment on above: Chronic bilateral lo w back pain with bilateral sciatica (Primary Dx); Degenerative disc disease at L5-S1 level; Herniated intervertebral disc of lumbar spine; Lumbosacral spondylosis without myelopathy; Morbid (severe) obesity due to excess calories (CMS/HCC); Pure hyperglyceridemia (CMS/HCC); Body mass index (BMI) 36.0-36.9, adult; VENANCIO (obstructive sleep apnea) Start: 08-27-2024 End: 08-27-2024 ambulatory ASHLEY PUMP Not Available Start: 08-20-2024 End: 08-20-2024 Refill Ashley Lugo RN [facility] Comment on above: Lumbar spondylosis ( Primary Dx); Lumbosacral spondylosis without myelopathy Start: 07-30-2024 End: 07-30-2024 ambulatory ALMAZ Barreto [facility] Start: 07-28-2024 End: 07-28-2024 ambulatory [facility] Work Phone: Start: 07-28-2024 End: 07-28-2024 Patient encounter procedure [facility] G[facility] Work Phone: Start: 07-15-2024 End: 07-15-2024 ambulatory DOMINIK LEÓN Not Available Start: 07-11-2024 End: 07-11-2024 ambulatory RIANNA KASPER Not Available Start: 06-21-2024 End: 06-21-2024 ambulatory ANKITA PATE [facility] Start: 06-20-2024 End: 06-20-2024 [facility] Start: 06-20-2024 End: 06-20-2024 ambulatory HAIDER CALABRESE [facility] Start: 06-19-2024 End: 07-20-2024 ambulatory ERYN B [facility] Start: 05-30-2024 End: 05-30-2024 ambulatory [facility] Start: 05-30-2024 End: 06-02-2024 ambulatory [facility] Start: 05-21-2024 End: 06-19-2024 ambulatory ERYN B [facility] Start: 05-17-2024 End: 05-17-2024 ambulatory ASHLEY Pennington ROOT [facility] Start: 05-16-2024 End: 05-16-2024 ambulatory HAIDER CALABRESE [facility] Start: 05-15-2024 End: 05-15-2024 ambulatory ALE RECINOS Not Available Start: 05-07-2024 End: 05-19-2024 ambulatory ERYN B [facility] Start: 05-07-2024 End: 05-07-2024 ambulatory ERYN B APLING Not Available Start: 05-06-2024 End: 05-06-2024 ambulatory ALE RECINOS Not Available Start: 04-22-2024 End: 04-22-2024 ambulatory AEL Solange LYNN [facility] Start: 04-16-2024 End: 04-18-2024 ambulatory ASHLEY L PUMP [facility] Start: 04-01-2024 End: 04-01-2024 ambulatory Chelsea L Ly Facility:[facility] Start: 03-27-2024 End: 03-29-2024 ambulatory ASHLEY L PUMP [facility] Start: 03-25-2024 End: 03-25-2024 ambulatory [facility] Start: 03-05-2024 End: 03-05-2024 ambulatory [facility] Work Phone: Start: 03-05-2024 End: 03-05-2024 Patient encounter procedure [facility] Work Phone: Start: 02-29-2024 End: 02-29-2024 ambulatory RIANNA KASPER Not Available Start: 02-16-2024 End: 02-16-2024 ambulatory [facility] Start: 02-15-2024 End: 02-15-2024 ambulatory [facility] Start: 01-22-2024 End: 01-22-2024 ambulatory [facility] Start: 01-18-2024 End: 01-18-2024 ambulatory ASHLEY PUMP Not Available Start: 01-12-2024 End: 01-12-2024 ambulatory [facility] Start: 01-11-2024 End: 01-11-2024 ambulatory [facility] Start: 01-08-2024 End: 01-08-2024 ambulatory DOMINIK MAU Not Available Start: 01-07-2024 End: 01-07-2024 ambulatory ASHLEY PUMP Not Available Start: 01-03-2024 Chart abstracting Ashley Pump N P Work Phone: [facility] Start: 12-26-2023 End: 12-27-2023 ambulatory RIANNA KASPER [facility] Start: 12-26-2023 Telephone encounter Rianna Kasper [employer] Work Phone: [facility] Start: 12-26-2023 End: 12-26-2023 ambulatory ALMAZ WETZEL [facility] Start: 12-25-2023 Orders Only Rianna eduardo [employer] Work Phone: [facility] Comment on above: Diarrhea, unspecifie d Start: 12-25-2023 End: 12-25-2023 Office outpatient visit 25 minutes Rianna Kasper [employer] Work Phone: [facility] Comment on above: Nausea and vomiting, unspecified vomiting type (Primary Dx); Heartburn; Diarrhea, unspecified type; Generalized abdominal pain; Irritable bowel syndrome, unspecified type; Diverticulosis of large intestine without hemorrhage; History of diverticulitis Start: 12-25-2023 End: 12-25-2023 ambulatory RIANNA KASPER Not Available Start: 12-19-2023 Telephone encounter Ashley Velez mp [employer] Work Phone: [facility] Comment on above: Sleep Lab (COMP) Start: 12-13-2023 End: 12-13-2023 ambulatory DOMINIK LEÓN Not Available Start: 12-10-2023 End: 12-10-2023 ambulatory ASHLEY PUMP Not Available Start: 12-05-2023 End: 12-05-2023 ambulatory Yannick Rosales Other [facility] Other Start: 12-05-2023 Office outpatient vi sit 15 minutes Yannick Rosales [facility] Start: 11-14-2023 End: 11-14-2023 ambulatory ASHLEY PUMP Not Available Start: 11-09-2023 End: 11-10-2023 Emergency department patient visit [facility] Start: 11-08-2023 End: 11-08-2023 ambulatory ASHLEY PUMP Not Available Start: 11-06-2023 End: 11-06-2023 ambulatory MONTSERRAT HAMPTON [facility] Start: 10-16-2023 End: 10-16-2023 ambulatory HONEY DE LEON Not Available Start: 10-08-2023 End: 10-08-2023 ambulatory ASHLEY PUMP Not Available Start: 07-11-2023 End: 07-11-2023 ambulatory Cassandra Mixon Facility:[facility] Start: 07-11-2023 End: 07-11-2023 ambulatory MD Maddie Castañeda Work Phone: [facility] Work Phone: Start: 07-11-2023 End: 07-11-2023 Patient encounter procedure MD Maddie Castañeda Work Phone: [facility] Bri Herbert Work Phone: Start: 09-18-2022 End: 09-18-[address] DOMINIK LEÓN Facility: Start: 05-03-2022 End: 05-03-2022 ambulatory [facility] Other [facility] Other Start: 05-03-2022 Telephone encounter [facility] Start: 04-12-2022 End: 04-12-2022 ambulatory [facility] Other [facility] Other Start: 04-12-2022 Telephone encounter [facility] Start: 03-28-2022 End: 03-28-2022 ambulatory Yannick Rosales Other [facility] Other Start: 03-28-2022 Office outpatient vi sit 15 minutes Yannick Rosales [facility] Start: 02-08-2022 End: 02-08-2022 ambulatory Yannick Rosales Other [facility] Other Start: 02-08-2022 Office outpatient ne w 45 minutes Yannick Rosales [facility] Start: 01-14-2022 End: 01-14-2022 ambulatory Ashley Mayer Other [facility] Other Start: 01-14-2022 Office outpatient ne w 20 minutes Ashley Mayer [facility] Procedures Date Procedure Procedure Detail Performing Clinician Start: 12-25-2023 Complete blood count with white cell differential, automated Rianna Kasper [employer] Work Phone: Start: 12-25-2023 Comprehensive metabolic panel Rianna Kapser NP Work Phone: Start: 09-24-2023 Cytp cerv/vag auto thin layer prep mnl screen Dominik León DO Work Phone: Start: 04-11-2023 Mammography Rianna Kasper NP Work Phone: Start: 04-10-2023 H/O: hysterectomy Status post hysterectomy Rianna Kasper NP Work Phone: Plan of Treatment Date Care Activity Detail Author Start: 12-17-2027 DTaP,Tdap and Td Vaccines (7 - Td or Tdap) DTaP,Tdap and Td Vaccines (7 - Td or Tdap) [facility] Start: 09-03-2025 Tobacco Screening Tobacco Screening [facility] Start: 07-30-2025 Tobacco Screening Tobacco Screening [facility] Start: 04-16-2025 Adult BMI Screening Adult BMI Screen ing [facility] Start: 11-09-2024 Adult BMI Screening Adult BMI Screen ing [facility] Start: 11-09-2024 Tobacco Screening Tobacco Screening [facility] Start: 10-07-2024 End: 10-07-2024 Patient encounter procedure 10/07/2024 9:15 AM EST Office Visit [facility] [address] [place] [address] Ale Hampton, TRA[employer]ER [employer]SEM[employer] [address] [place] [address] [facility] Start: 09-29-2024 End: 09-29-2024 Patient encounter procedure 09/29/2024 2:00 PM EST Office Visit [facility] [address] [facility] [place] [address] Dominik León, DO [address] [place] [address] [facility] Start: 09-24-2024 End: 09-24-2024 Patient encounter procedure 09/24/2024 3:00 PM EST Office Visit [facility] [address] [place] [phone] Pump, Ashley, [employer] [address] [place] [address] Arrived [facility] Comment on above: Arrived Start: 09-04-2024 End: 09-04-2024 Patient encounter procedure [facility] Start: 09-03-2024 End: 09-03-2024 Patient encounter procedure 09/03/2024 8:45 AM EDT Office Visit [facility] [address] [place] [phone] Almaz Wetzel PA-C [address] [facility], [address] [place] [address] [facility] Start: 08-27-2024 End: 08-27-2024 Patient encounter procedure 08/27/2024 9:30 AM EDT Office Visit [facility] [address] [place] [phone] Pump, Ashley, [employer] [address] [facility] [place] [address] Arrived [facility] Comment on above: Arrived Start: 07-20-2024 COVID-19 Vaccine ( season) COVID-19 Vaccine ( season) [facility] Start: 07-20-2024 Influenza vaccination P [facility] Start: 04-30-2024 End: 04-30-2024 Clinical Support 04/30/2024 8:00 PM EDT Clinical Support [facility] [address] [facility] [place] [id number] [facility] Start: 04-16-2024 End: 04-16-2024 Clinical Support 04/16/2024 8:00 PM EDT Clinical Support [facility] [address] [facility] [place] [address] [facility] Start: 04-11-2024 Screening for malign ant neoplasm of breast Mammogram [facility] Start: 01-07-2024 End: 01-07-2024 Patient encounter procedure 01/07/2024 10:00 AM EST Office Visit [facility] [address] [place] [phone] PumpAshley, [employer] [address] [place] [address] [facility] Start: 12-26-2023 End: 12-26-2023 Patient encounter procedure 12/26/2023 1:15 PM EST Office Visit [facility] [address] [place] [phone] Almaz Wetzel PA-C [address] [facility] [place] [address] [facility] Start: 12-25-2023 End: 09-02-2025 C difficile by PCR [facility] Work Phone: Comment on above: Expected: 12/25/2023 , Expires: 12/25/2024 Expected: 12/25/2023 , Expires: 09/02/2025 Start: 12-25-2023 End: 12-25-2024 C DIFFICILE BY PCR ([facility]) C DIFFICILE BY PCR ([facility]) Lab Routine Diarrhea, unspecified type Expected: 12/25/2023 (Approximate), Expires: 12/25/2024 [facility] Work Phone: Comment on above: Expected: 12/25/2023 (Approximate), Expires: 12/25/2024 Start: 12-25-2023 End: 12-25-2024 CT Abdomen W contrast IV CT abdomen w IV contrast Imaging Routine Generalized abdominal pain Expected: 12/25/2023, Expires: 12/25/2024 [facility] Comment on above: Expected: 12/25/2023 , Expires: 12/25/2024 Start: 12-25-2023 End: 12-25-2024 Measurement of occult blood in single stool specimen Occult blood x 1, stool Lab Routine Diarrhea, unspecified type Expected: 12/25/2023 (Approximate), Expires: 12/25/2024 [facility] Comment on above: Expected: 12/25/2023 (Approximate), Expires: 12/25/2024 Start: 12-25-2023 End: 09-02-2025 O & P Screen O & P Screen Lab Routine Diarrhea, unspecified Expected: 12/25/2023, Expires: 09/02/2025 [email or web address] Work Phone: Comment on above: Expected: 12/25/2023 , Expires: 09/02/2025 Start: 12-25-2023 End: 12-25-2024 Ova and parasite screen Ova and parasite screen Microbiology Routine Diarrhea, unspecified type Expected: 12/25/2023 (Approximate), Expires: 12/25/2024 [facility] Comment on above: Expected: 12/25/2023 (Approximate), Expires: 12/25/2024 Start: 12-25-2023 End: 09-02-2025 Stool culture [facility] Comment on above: Expected: 12/25/2023 (Approximate), Expires: 12/25/2024 Expected: 12/25/2023 , Expires: 09/02/2025 Start: 07-20-2023 COVID-19 Vaccine ( season) COVID-19 Vaccine ( season) [facility] Start: 07-20-2023 Influenza vaccination P [facility] Start: 1999 Adult BMI Follow Up Plan Adult BMI Follow Up Plan [facility] Start: 1993 Depression Screening Depression Scre lux [facility] Immunizations Immunization Date Immunization Notes Care Provider Giovani adrian 01-16-2022 COVID-19 Elena Driver (Pfizer) MD Maddie Castañeda Work Phone: [facility] 07-01-2021 COVID-19 Elena Driver (Pfizer) MD Maddie Castañeda Work Phone: [facility] 09-02-2018 influenza virus vaccine, unspecified formulation Ashley Pump [employer] Work Phone: [facility] 08-06-2018 influenza, injectabl e,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 called office today as her pain began to worsen after work yesterday. Patient was seen 07/30/2024 for follow up post L 02/21 03/19 RFAs. She states she's had little relief post procedure. Gabapentin 300 mg titration was ordered. She is currently taking 300 mg three times daily with no relief. She does report slight dizziness and lightheadedness since starting Gabapentin. Patient complains of spasms in her legs, n/t in her feet, and twitching of bilateral great toes. Patient was asked about current interventions. She reports she took Tylenol 1000 mg, IBU 800 mg, baclofen, use of TENS all used once yesterday which provided no relief. She reported she used heat off and on yesterday. Patient is advised that she may use Tylenol and IBU 3 times daily as needed. She is advised to use Baclofen BID as prescribed and add topicals as needed for local pain relief. Patient has a follow up 09/03/2024 and is requesting a letter allowing her to be off work until after her follow up. Please advise. If the gabapentin is not working and causing side effects we can move forward with Lyrica 75 mg BID and D/C gabapentin Call placed to patient and she was informed of provider's response. She is agreeable to to the change of medication. She asks about the letter taking her off of work. Patient is informed that information was not addressed in provider's response but that our providers do not take patients off work for continued periods of time. Order for Lyrica has been pended for review and signature. documented in this encounter [facility] 08-20-2024 Telephone encounter Note Patient called office today as her pain began to worsen after work yesterday. Patient was seen 07/30/2024 for follow up post L 02/21 03/19 RFAs. She states she's had little relief post procedure. Gabapentin 300 mg titration was ordered. She is currently taking 300 mg three times daily with no relief. She does report slight dizziness and lightheadedness since starting Gabapentin. Patient complains of spasms in her legs, n/t in her feet, and twitching of bilateral great toes. Patient was asked about current interventions. She reports she took Tylenol 1000 mg, IBU 800 mg, baclofen, use of TENS all used once yesterday which provided no relief. She reported she used heat off and on yesterday. Patient is advised that she may use Tylenol and IBU 3 times daily as needed. She is advised to use Baclofen BID as prescribed and add topicals as needed for local pain relief. Patient has a follow up 09/03/2024 and is requesting a letter allowing her to be off work until after her follow up. Please advise. [facility] 08-20-2024 Telephone encounter Note If the gabapentin is not working and causing side effects we can move forward with Lyrica 75 mg BID and D/C gabapentin [facility] 08-20-2024 Telephone encounter Note Call placed to patient and she was informed of provider's response. She is agreeable to to the change of medication. She asks about the letter taking her off of work. Patient is informed that information was not addressed in provider's response but that our providers do not take patients off work for continued periods of time. Order for Lyrica has been pended for review and signature. [facility] 12-26-2023 Telephone encounter Note Spoke with pt feeling approx 80% better today. No fever or chills. Ate jello this AM, and no nausea. Plans to eat alittle more tonight. Did stool sample today. CMP WNL, CBC WNL except WBC 11.1, neutrophils 9,092. Pt wondering if needs CT, since feeling better. I told her to keep order in for now, but if better/back to normal when they call, could cancel it. She could have had a flu type virus. I will call her when I get stool specimens back. PVU and agrees with plan [facility] 12-26-2023 Miscellaneous Notes Spoke with pt feeling approx 80% better today. No fever or chills. Ate jello this AM, and no nausea. Plans to eat alittle more tonight. Did stool sample today. CMP WNL, CBC WNL except WBC 11.1, neutrophils 9,092. Pt wondering if needs CT, since feeling better. I told her to keep order in for now, but if better/back to normal when they call, could cancel it. She could have had a flu type virus. I will call her when I get stool specimens back. PVU and agrees with plan documented in this encounter [facility] 12-25-2023 History of Presen t illness Narrative Images from the original note were not included. Subjective Patient ID: Georgette Wu is a 43 y.o. female who presents for Abdominal Pain (Right side, x3 days), Heartburn (Started today, ), and Vomiting (X2 today). HPI Abdominal Pain Associated symptoms include headaches and vomiting. Pertinent negatives include no dysuria or fever. Heartburn She complains of abdominal pain and heartburn. She reports no chest pain or no coughing. Associated symptoms include fatigue. Vomiting Associated symptoms include abdominal pain and headaches. Pertinent negatives include no chest pain, chills, coughing or fever. HPI: As above, feels like acid reflux/burning and like something is stuck in upper abdomen. Last night took Bentyl, Levsin, and Doxepin (per pt calms stomach and should help with sleep). Sees Dr Arreola-last appt in [place] in Sep or Oct and is to F/U in 3 months. Abdominal discomfort 6/10 comes and goes upper and right abdomen areas. No fever or chills. Bowels moving a lot, watery diarhhea for past 3 days, numerous times a day. Went 4 times today so far. No blood in stool. No recent travel ie no zoo, farm or [place]. Tried to eat some dried toast this AM, but threw it up, yesterday small bowl of chili-ate couple of bites. Not taking PPI or Pepcid. Took 2 TUMS this AM, no relief. Review of Systems Constitutional: Positive for fatigue. Negative for chills and fever. Slight tired today HENT: ENT ok, just sl stuffy this AM Respiratory: Negative for cough, chest tightness and shortness of breath. Cardiovascular: Negative for chest pain. Gastrointestinal: Positive for abdominal pain, heartburn and vomiting. See HPI Genitourinary: Negative for difficulty urinating and dysuria. Musculoskeletal: No increased body aches Skin: Negative for rash. Neurological: Positive for headaches. Congregational area today. No Tx yet Psychiatric/Behavioral: Sleeping interupted by Sx's, don't ever sleep good Objective Physical Exam Vitals reviewed. Constitutional: General: She is not in acute distress. HENT: Right Ear: Tympanic membrane normal. Left Ear: Tympanic membrane normal. Nose: Nose normal. Mouth/Throat: Mouth: Mucous membranes are moist. Pharynx: Oropharynx is clear. No posterior oropharyngeal erythema. Eyes: Extraocular Movements: Extraocular movements intact. Cardiovascular: Rate and Rhythm: Normal rate and regular rhythm. Comments: No edema Pulmonary: Effort: Pulmonary effort is normal. Breath sounds: Normal breath sounds. Comments: No cough Abdominal: General: Bowel sounds are normal. There is no distension. Palpations: Abdomen is soft. Tenderness: There is abdominal tenderness. There is no guarding or rebound. Comments: Pt has tenderness mainly on right side of abdomen with palpation rates pain 8-9/10 then. States she has Hx of diverticulitis and her Sx's are on right side, not left usually Musculoskeletal: Comments: Normal gait Lymphadenopathy: Cervical: No cervical adenopathy. Skin: General: Skin is warm and dry. Findings: No rash. Neurological: Mental Status: She is alert and oriented to person, place, and time. Psychiatric: Comments: Calm and cooperative, well groomed, smiles Handout given on GERD tiggers: Triggers identified include: lemonade, tomatoes, bulgarian fries, mac and cheese, ice cream, ice cream, milk shakes, sour cream, chocolate, ground beef, nuggets/wings 09/24/2023 2:22 PM 10/08/2023 10:58 AM 11/08/2023 9:53 AM 11/14/2023 9:06 AM 12/10/2023 10:05 AM 12/13/2023 11:33 AM 12/25/2023 1:34 PM Vitals BMI 37.25 kg/m2 37.87 kg/m2 37.08 kg/m2 43.43 kg/m2 37.35 kg/m2 37.32 kg/m2 36.87 kg/m2 BSA (m2) 2.11 m2 2.12 m2 2.1 m2 2.28 m2 2.11 m2 2.11 m2 2.1 m2 Systolic 128 140 124 130 140 140 110 Diastolic 78 90 90 90 90 76 80 Heart Rate 68 68 76 76 Weight (lb) 217 220.6 216 253 217.6 217.4 214.8 Visit Report Report Report Report Report Report Report Report Assessment/Plan Diagnoses and all orders for this visit: Nausea and vomiting, unspecified vomiting type: Rx for Zofran. Enc clear liquids until N/V/D improve - ondansetron (Zofran) 4 MG tablet; Take 1 tablet (4 mg) by mouth every 8 (eight) hours if needed for nausea or vomiting for up to 3 days Heartburn Comments: Rx for PPI sent. Handout on GERD triggers given with review. Pt has many triggers, Enc to stop or at least decrease triggers. PVU Orders: - omeprazole (PriLOSEC) [address] capsule; Take 1 capsule (40 mg) by mouth in the morning. Take before meals. Do not crush or chew.. Diarrhea, unspecified type Comments: Will get stool specimens Orders: - CBC and differential; Future - Comprehensive metabolic panel; Future - C DIFFICILE BY PCR ([facility]); Future - Ova and parasite screen; Future - Stool culture; Future - Occult blood x 1, stool; Future Generalized abdominal pain Comments: Right mid abd area, Will order CT of Abd, pt with Hx of divetisulitis her is right sided pain Orders: - CBC and differential; Future - Comprehensive metabolic panel; Future - CT abdomen w IV contrast; Future Irritable bowel syndrome, unspecified type: Hx of-sees GI Enc to keep appt for follow up Diverticulosis of large intestine without hemorrhage: Hx of History of diverticulitis documented in this encounter [facility] 12-19-2023 Miscellaneous Notes 12/18 Received order 12/19 Called PT LM to schedule sleep study. COMP order and 12/10 Pump notes in MM [facility] Telephone encounter Note 12/18 Received order 12/19 Called PT LM to schedule sleep study. COMP order and 12/10 [facility] MM [facility] note Encounter Date Diagnosis Assessment Notes Nov, Irritable bowel syndrome with diarrhea (ICD-10 - K58.0) The patient uses Metamucil powder & probiotics. She is drinkining 6 -8 glasses of water daily. She complains of diarrhea and constipation. When she is constipated, she has some right sided pain. She does move her bowels daily. She does have Hyoscyamine & Dicyclomine at home & she uses these as needed. She is working on her diet & is making some better choices. She does not sleep well. Add Doxepin at bed time. Return visit here in 3 months [facility] Other 05-25-2022 Evaluation note* Encounter Date Diagnosis Assessment Notes Treatment Notes Treatment Clinical Notes March, Hemorrhoids (ICD-10 - K64.9) [facility] Other 05-10-2022 Evaluation note* Encounter Date Diagnosis Assessment Notes Treatment Notes Treatment Clinical Notes March, Diverticulosis (ICD-10 - K57.90) March, Abdominal pain (ICD-10 - R10.9) March, Constipation (ICD-10 - K59.00) March, Rectal bleeding (ICD-10 - K62.5) March, Black stools (ICD-10 - K92.1) [facility] Other 03-23-2022 Evaluation note* Encounter Date Diagnosis Assessment Notes Treatment Notes Treatment Clinical Notes Jan, Irritable bowel syndrome (ICD-10 - K58.9) START LOW FOD MAP DIET ( HAND OUT PROVIDED TO PT) START [facility] Jan, Blood in stool (ICD-10 - K92.1) COLONOSCOPY Jan, Constipation (ICD-10 - K59.00) Jan, Abdominal pain (ICD-10 - R10.9) [facility] Other 02-26-2022 Evaluation note* Encounter Date Diagnosis Assessment Notes Treatment Notes Treatment Clinical Notes Dec, Right foot pain (ICD-10 - M79.671) Dec, Contusion of right foot, initial encounter (ICD-10 - S90.31XA) XR images and final report reviewed, no acute bony abnormalities noted. Encouraged RICE therapy discussed- rest extremity, avoid excessive or strenuous activity, complete activity as tolerated; ice area for 15-20 minutes at a time multiple times a day, ensure thin cloth barrier between skin and ice; JIMENA wrap area; keep extremity elevated. Advised patient to use OTC Tylenol as directed as needed for discomfort. Instructed patient to follow up with PCP or ortho if symptoms do not improve in the next 5-7 days. Immediate eval by ER for warning s/sx as discussed. Patient verbalizes understanding and is agreeable to treatment plan [facility] Other 02-02-2022 NotePROCEDURE: [employer] VCT 64, 5.0 mm slice axial images were acquire with coronal reconstruction through the abdomen and pelvis with contrast. HISTORY: Generalized abdominal pain x 1 month, nausea FINDINGS: Mild wall thickening, interstitial stranding with mild diverticular formation descending/sigmoid junction and proximal sigmoid colon, left hemipelvis. No bowel obstruction, free air or abscess formation. No regional lymphadenopathy. No ascites or pelvic fluid. Follicular appearing left ovary (normal size 2. 0 x 3.0 cm), anterior aspect of the broad ligament contiguous with the neighboring inflammatory changes. Unremarkable lung bases, liver, biliary tree (s/p cholecystectomy), pancreas, adrenal glands, kidneys, collecting systems and bladder. Mild splenomegaly maximum length 13.0 cm, no regional lymphadenopathy. Lumbosacral arthritis, chronic spondylolysis. IMPRESSION: 1. Mild diverticulitis descending/sigmoid junction and proximal sigmoid colon, no evidence of obstruction or abscess. Report reported and signed by Benjamin Cain on 12/21/2021 [id number] SpecialistEvaluation noteNo InformationNoselect specialty hospital [employer] Other Evaluation noteNo assessment information available [facility] Work Phone: Evaluation note* Diagnosis Diarrhea, unspecified [facility] Diagnosis Nausea and vomiting, unspecified vomiting type- Primary Heartburn Diarrhea, unspecified type Generalized abdominal pain Abdominal pain, generalized Irritable bowel syndrome, unspecified type Diverticulosis of large intestine without hemorrhage History of diverticulitis documented in this encounter [facility] HealthcareEvaluation note* Diagnosis Onset Date Resolution Status Irritable bowel syndrome with alternating bowel habits acute [facility] Work Phone: Evaluation note* Diagnosis Onset Date Resolution Status Constipation acute Irritable bowel syndrome with alternating bowel habits acute [facility] Work Phone: Evaluation note* Diagnosis Lumbar spondylosis- Primary Lumbosacral spondylosis without myelopathy Lumbosacral spondylosis without myelopathy documented in this encounter [facility]* Diagnosis Chronic bilateral low back pain with bilateral sciatica- Primary Degenerative disc disease at L5-S1 level Herniated intervertebral disc of lumbar spine Lumbosacral spondylosis without myelopathy Morbid (severe) obesity due to excess calories (CMS/HCC) Pure hyperglyceridemia (CMS/HCC) Pure hyperglyceridemia Body mass index (BMI) 36.0-36.9, adult VENANCIO (obstructive sleep apnea) Obstructive sleep apnea (adult) (pediatric) documented in this encounter [facility] HealthcareEvaluation note* Diagnosis Diarrhea, unspecified documented in this encounter [facility]* Diagnosis Lumbar spondylosis- Primary Lumbosacral spondylosis without myelopathy Disorder of sacrum Disorders of sacrum Spinal stenosis of lumbar region with neurogenic claudication [facility]* Diagnosis Hot flashes Hormone imbalance Asymptomatic menopausal state Chronic low back pain, unspecified back pain laterality, unspecified whether sciatica present- Primary Degeneration of intervertebral disc of lumbar region with discogenic back pain and lower extremity pain documented in this encounter [facility] HealthcareEvaluation note* Diagnosis Chronic low back pain, unspecified back pain laterality, unspecified whether sciatica present- Primary Degeneration of intervertebral disc of lumbar region with discogenic back pain and lower extremity pain Chronic bilateral low back pain with bilateral sciatica Degenerative disc disease at L5-S1 level Herniated intervertebral disc of lumbar spine Lumbosacral spondylosis without myelopathy documented [facility]* Diagnosis Heartburn documented in this encounter [facility] HealthcareEvaluation note* Diagnosis Non-recurrent acute suppurative otitis media of both ears without spontaneous rupture of tympanic membranes- Primary Tinnitus of left ear documented [facility]* Diagnosis Irritable bowel syndrome with diarrhea- Primary Irritable bowel syndrome documented in this encounter [facility] general Narrative - Reported* Type Description Date Medical History Migraine headache Medical History Diverticulitis Surgical History tubal ligation Surgical History cholecystectomy Surgical History tonsillectomy and adenoidectomy Surgical History Foot Surgery Surgical History wisdom teeth Surgical History colonoscopy Surgical History hysterectomy Hospitalization History see above [facility] Other InstructionsNot on filedocumented in this encounter [facility] filedocument[facility] this [facility] filedocumented in this encounter [facility] filedocumented in this encounter [facility]Not on filedocumented in this encounter [facility] (narrative)* Consultation (Routine) - Pending Review Specialty Diagnoses / Procedures Referred By Contact Referred To Contact Orthopaedic Surgery Diagnoses Chronic bilateral low back pain with bilateral sciatica Degenerative disc disease at L5-S1 level Herniated intervertebral disc of lumbar spine Lumbosacral spondylosis without myelopathy Ashley Barker NP [address] [place] [address] Honey De Leon DO [address] [address] Referral ID Status Reason Start Date Expiration Date Visits Requested Visits Authorized [id number] Pending Review Specialty Services Required 08/27/2024 2025 1 1 * Consultation (Routine) - Pending Review Specialty Diagnoses / Procedures Referred By Danika t Referred To Contact Pulmonary Disease Diagnoses VENACNIO (obstructive sleep apnea) Procedures [facility] OFFICE/OUTPATIENT NEW HIGH MDM 60 MINUTES Pump, CLAY Ramirez [address] [place] [address] Fern Iraheta MD [facility] [place] [address] Referral ID Status Reason Start Date Expiration Date Visits Requested Visits Authorized [id number] Pending Review Specialty Services Required 08/27/2024 2025 1 1 JAIME Weiss for visit NarrativePATIENT HERE AT REQUEST OF DR CASTAÑEDA FOR EVALUATION AND TREATMENT OF IRRITABLE BOWEL SYNDROME, SHE COMPLAINS OF BLOATING AND CONSTIPATION WITH ONE OCCASION OF BLOOD IN STOOL SHE HAS TRIED MIRALAX AND WAS GIVEN BENTYL FROM HER [employer] Other Summary Purpose Family History Relationship Condition Age at Onset Recorded Date/T chan Not Specified Diabetes mellitus Unknown Hypertension Unknown grandparent Diabetes mellitus Unknown father Rheumatoid arthritis Unknown Relationship Condition Age at Onset Recorded Date/T chan Not Specified Diabetes mellitus Unknown Hypertension Unknown grandparent Diabetes mellitus Unknown father Rheumatoid arthritis Unknown father Unknown Relationship Condition Age at Onset Recorded Date/T chan mother Diabetes mellitus Unknown Hypertension Unknown Malignant neoplasm of colon Unknown Hypothyroidism Unknown grandparent Diabetes mellitus Unknown father Rheumatoid arthritis Unknown Unknown Advance Directives Advance Directive Response Recorded Date/ Time Advance Directives No July 4:12pm Reason for Referral Specialty Diagnoses / Procedures Referred By Contsusan t Referred To Contact Radiology Diagnoses Generalized abdominal pain Procedures CT abdomen w IV contrast Rianna Kasper NP [address] [place] [address] Referral ID Status Reason Start Date Expiration Date V isits Requested Visits Authorized [id number] Pending Review 12/25/2023 06/22/2024 1 1 Chief Complaint and Reason for Visit Chief Complaint 3 MONTH F/U-IBS Reason for Visit Irritable bowel synd norah with alternating bowel habits Chief Complaint 4 MONTH FOLLOW UP Reason for Visit Constipation Irritable bowel syndrome with alternating bowel habits Additional Source Comments REASON FOR VISIT (unrecogniz ed section and content) Reason Onset Date Comments Sleep Lab 12/19/2023 COMP Reason Comments Abdominal Pain Right side, x3 days Heartburn Started today, Vomiting X2 today Reason Comments Back Pain Pt has had low back pain for at least the last 6 months. Pt saw the pain clinic and they did an rfa and pt doesn't feel like this has helped. Pt would like to know next steps Reason Comments Back Pain Reason Comments Pain Specialty Diagnoses / Procedures Referred By Contact Referred To Contact Orthopaedic Surgery Diagnoses Chronic bilateral low back pain with bilateral sciatica Degenerative disc disease at L5-S1 level Herniated intervertebral disc of lumbar spine Lumbosacral spondylosis without myelopathy Pump, Ashley, FRENCH BINDER [address] [place] [address] Phone: tel:[phone] fax: Honey De Leon, [address] [facility] [address] [place] [address] Phone: tel: fax: Referral ID Status Reason Start Date Expiration Date V isits Requested Visits Authorized [id number] Closed Specialty Services Required 08/27/2024 2025 1 1 Reason Comments Med Refill Reason Comments Tinnitus Lt ear and feels plu gged x 1 week. Reason Onset Date Comments Med Refill 09/26/2024 INFORMATION SOURCE (unrecogn ized section and content) DATE CREATED AUTHOR 06/21/2022 [facility] dical Specialist DATE CREATED AUTHOR AUTHOR'S ORGANIZ ATION 09/24/2022 [facility] DATE CREATED AUTHOR AUTHOR'S ORGANIZ ATION 01/02/[address] [facility] DATE CREATED AUTHOR AUTHOR'S ORGANIZ ATION 04/12/2024 [facility] DATE CREATED AUTHOR AUTHOR'S ORGANIZ ATION 09/26/2024 [facility] DATE CREATED AUTHOR AUTHOR'S ORGANIZ ATION 09/26/2024 [facility] dical Specialists EPIC Care Teams (unrecognized sec tion and content) Team Status: Active Member Role Status Dates Maddie Castañeda MD Primary Care Provider Active Team Status: Inactive Member Role Status Dates Maddie Castañeda MD Primary Care Provider Active Cassandra Mixon , FRENCH BINDER-C Attending Provider Active Dip Tanker Relationship Specialty Start Date End Date Maddie Castañeda MD [address] [place] [address] PCP - General Family Medicine 11/01/23 Dip Tanker Relationship Specialty Start Date End Date Maddie Castañeda MD [address] [place] [address] PCP - General Family Medicine 11/01/23 Dip Tanker Relationship Specialty Start Date End Date Maddie Castañeda MD [address] [place] [address] PCP - General Family Medicine 04/09/23 Maddie Castañeda MD [address] [place] [address] PCP - [employer] 07/20/23 Ashley Barker FR[employer]CH B[employer]ER [address] [place] [address] Family Medicine 04/09/23 Dip Tanker Relationship Specialty Start Date End Date Maddie Castañeda MD [address] [place] [address] PCP - General Family Medicine 04/09/23 Maddie Castañeda MD [address] [place] [address] PCP - [employer] 07/20/23 PumpAshley FR[employer]CH B[employer]ER [address] [place] [address] Family Medicine 04/09/23 Dip Tanker Relationship Specialty Start Date End Date Maddie Castañeda MD [address] [place] [address] PCP - General Family Medicine 04/09/23 Maddie Castañeda MD [address] [place] [address] PCP - [employer] 07/20/23 PumpAshley, FRENCH BINDER [address] [place] [address] Family Medicine 04/09/23 Team Status: Inactive Member Role Status Dates Maddie Castañeda MD Primary Care Provider Active Start: March 05, 2024 End: March 05, 2024 Chelsea Robbins DO Attending Provider Active St art: March 05, 2024 End: March 05, 2024 Team Status: Inactive Member Role Status Dates Maddie Castañeda MD Primary Care Provider Active Start: July 28, 2024 End: July 28, 2024 Chelsea Robbins DO Attending Provider Active St art: July 28, 2024 End: July 28, 2024 Dip Tanker Relationship Specialty Start Date End Date Maddie Castañeda MD [address] [place] [address] PCP - General Family Medicine 11/01/23 Dip Tanker Relationship Specialty Start Date End Date Maddie Castañeda MD [address] [place] [address] PCP - General Family Medicine 04/09/23 Maddie Castañeda MD [address] [place] [address] PCP - [employer] 06/19/23 PumpAshley, FRENCH BINDER [address] [facility] [place] [address] Family Medicine 04/09/23 Dip Tanker Relationship Specialty Start Date End Date Maddie Castañeda MD [address] [place] [address] PCP - General Family Medicine 04/09/23 Maddie Castañeda MD [address] [place] [address] PCP - [employer] 06/19/23 Ashley Barker [employer] [address] [place] [address] Family Medicine 04/09/23 Dip Tanker Relationship Specialty Start Date End Date Maddie Castañeda MD [address] [place] [address] PCP - General Family Medicine 11/01/23 Dip Tanker Relationship Specialty Start Date End Date Maddie Castañeda MD [address] [place] [address] PCP - General Family Medicine 11/01/23 Dip Tanker Relationship Specialty Start Date End Date Maddie Castañeda MD [address] [place] [address] PCP - General Family Medicine 04/09/23 Maddie Castañeda MD [address] [place] [address] PCP - [employer] 06/19/23 Ashley Barker NP [address] [place] [address] Family Medicine 04/09/23 Dip Tanker Relationship Specialty Start Date End Date Maddie Castañeda MD [address] [place] [address] PCP - General Family Medicine 04/09/23 Maddie Castañeda MD [address] [place] [address] PCP - [employer] 06/19/23 Pump, Ashley, FR[employer]CH B[employer]ER [address] [place] [address] Family Medicine 04/09/23 Dip Tanker Relationship Specialty Start Date End Date Maddie Castañeda MD [address] [place] [address] PCP - General Family Medicine 04/09/23 Maddie Castañeda MD [address] [place] [address] PCP - [employer] 06/19/23 Pump, Ashley, FR[employer]CH B[employer]ER [address] [place] [address] Family Medicine 04/09/23 Dip Tanker Relationship Specialty Start Date End Date Maddie Castañeda MD [address] [place] [address] PCP - General Family Medicine 04/09/23 Maddie Castañeda MD [address] [place] [address] PCP - [employer] 06/19/23 Pump, Ashley, FRENCH BINDER [address] [place] [address] Family Medicine 04/09/23 Dip Tanker Relationship Specialty Start Date End Date Maddie Castañeda MD [address] [place] [address] PCP - General Family Medicine 04/09/23 Maddie Castañeda MD [address] [place] [address] PCP - [employer] 06/19/23 PumpAshley FR[employer]CH B[employer]ER [address] [place] [address] Family Medicine 04/09/23 Dip Tanker Relationship Specialty Start Date End Date Maddie Castañeda MD [address] [place] [address] PCP - General Family Medicine 04/09/23 Maddie Castañeda MD [address] [place] [address] PCP - [employer] 06/19/23 PumpAshley FRENCH BINDER [address] [place] [address] Family Medicine 04/09/23 Goals (unrecognized section and content) Goals may be documented in a n alternate section FOR RECORDS PERTAINING TO PATIENTS WHO ARE OR HAVE BEEN ENROLLED IN A CHEMICAL DEPENDENCY/SUBSTANCEABUSE PROGRAM, SOME INFORMATION MAY BE OMITTED. This clinical summary was aggregated from multiple sources. Caution should be exercised in using it in the provision of clinical care. This summary normalizes information from multiple sources, and as a consequence, information in this document may materially change the coding, format and clinical context of patient data. In addition, data may be omitted in some cases. CLINICAL DECISIONS SHOULD BE BASED ON THE PRIMARY CLINICAL RECORDS. [employer] [facility]. provides no warranty or guarantee of the accuracy or completeness of information in this document.
== END 2024-09-29 20:38 | disposition home or self-care (01) ==
LOC: LAB 20:37
PROVIDERS: PCP Obstetrics & Gynecology; Visit Provider Obstetrics & Gynecology
DX: Z01.419 Encounter for gynecological examination (general) (routine) without abnormal findings (principal)
CPT/HCPCS: 87624; 88175

== ENCOUNTER 2024-12-03 10:16 | Outpatient (OUT) | payer BC, SELFPAY ==
--- OUTSIDE RECORDS SUMMARY | 2024-12-03 10:34 | XMS_ITS | CCD ---
Author Organization [facility] Care Team Providers Care Full Stack Developer Name Role Phone Ashley Mayer Unavailable Yannick Rosales Unavailable [facility] Unavailable DR DOMINIK LEÓN Admitting Unavailable MAU, DR IRVIN Attending Unavailable DR MADDIE CASTAÑEDA Primary Care Unavailable MAU, DR IRVIN Consulting Unavailable MD Maddie Castañeda Primary Care Provider [phone] Obermeymara, EXECUTIVE LEGAL SECRETARY-C Cassandra Madden Attending Provider Maddie Castañeda MD Primary Care Provider Maddie Castañeda MD Primary Care Provider Pump EXECUTIVE LEGAL SECRETARY, Ashley Unavailable Maddie Castañeda MD Unavailable RIANNA KASPER Referring Unavailable MADDIE CASTAÑEDA Primary Care Unavailable Chelsea Robbins Admitting Unavailable Chelsea Robbins Attending Unavailable Maddie Castañeda [facility] Unavailable Cassandra Mixon Admitting Unavailable Cassandra Mixon Attending Unavailable Maddie Castañeda [facility] Care Unavailable Maddie Castañeda MD Unavailable [phone] Maddie Castañeda MD Primary Care Provider Maddie Castañeda MD Unavailable PUMP, ASHLEY Attending Unavailable PUMP, ASHLEY Attending Unavailable DOMINIK LEÓN Attending Unavailable RIANNA KASPER Attending Unavailable PUMP, ASHLEY Attending Unavailable DOMINIK LEÓN Attending Unavailable PUMP, ASHLEY Attending Unavailable PUMP, ASHLEY Referring Unavailable HONEY DE LEON Attending Unavailable PUMP, ASHLEY Referring Unavailable PUMP, ASHLEY Attending Unavailable RIANNA KASPER Attending Unavailable ALE RECINOS Attending Unavailable ALE RECINOS Referring Unavailable APLING, ERYN B Attending Unavailable ALE RECINOS Referring Unavailable PUMP, ASHLEY Attending Unavailable ALE RECINOS Attending Unavailable RIANNA KASPER Attending Unavailable RIANNA KASPER Referring Unavailable MAU, DOMINIK Attending Unavailable PUMP, ASHLEY Attending Unavailable HONEY DE LEON Attending Unavailable PUMP, ASHLEY Referring Unavailable MAUDOMINIK Attending Unavailable PUMP, ASHLEY Attending Unavailable MAU, DOMINIK Attending Unavailable NIENBERGALE Attending Unavailable WONDERLY, MADDIE B Referring Unavailable WONDERLY, MADDIE B Primary Care Unavailable CALABRESE, HAIDER [place]ning[place] Attending Unavailable CALABRESE, HAIDER E Referring Unavailable WONDERLY, MADDIE B Primary Care Unavailable CALABRESE, HAIDER E Admitting Unavailable CALABRESE, HAIDER E Attending Unavailable WONDERLY, MADDIE B Referring Unavailable WONDERLY, MADDIE B Primary Care Unavailable ROOT, ASHLEY [place] Attending Unavailable WONDERLY, MADDIE B Primary Care [...] Unavailable WONDERLY, MADDIE B Primary Care Unavailable CALABRESE, HAIDER E Admitting Unavailable CALABRESE, HAIDER E Attending Unavailable WONDERLY, MADDIE B Referring Unavailable WONDERLY, MADDIE B Primary Care Unavailable CALABRESE, HAIDER [place] Attending Unavailable CALABRESE, HAIDER E Referring Unavailable WONDERLY, MADDIE B Primary Care Unavailable ROOT, ASHLEY [place] Attending Unavailable WONDERLY, MADDIE B Primary Care Unavailable ALMAZ WETZEL Attending Unavailable WONDERLY, MADDIE B Referring Unavailable WONDERLY, MADDIE B Primary Care Unavailable APLING, ERYN B Referring Unavailable WONDERLY, MADDIE B Primary Care Unavailable CALABRESE, HAIDER E Admitting Unavailable CALABRESE, HAIDER E Attending Unavailable WONDERLY, MADDIE B Referring Unavailable WONDERLY, MADDIE B Primary Care Unavailable CALABRESE, HAIDER E Attending Unavailable CALABRESE, HAIDER E Referring Unavailable WONDERLY, MADDIE B Primary Care Unavailable APLING, ERYN B Referring Unavailable WONDERLY, MADDIE B Primary Care Unavailable CALABRESE, HAIDER E Attending Unavailable CALABRESE, HAIDER E Referring Unavailable WONDERLY, MADDIE B Primary Care Unavailable CALABRESE, HAIDER E Admitting Unavailable CALABRESE, HAIDER E Attending Unavailable CALABRESE, HAIDER E Referring Unavailable WONDERLY, MADDIE B Primary Care [...] Unavailable WONDERLY, MADDIE B Primary Care Unavailable ALE HAMPTON Attending Unavailable WONDERLY, MADDIE B Referring Unavailable WONDERLY, MADDIE B Primary Care Unavailable NIALE BAILEY Attending Unavailable NIALE BAILEY M Referring Unavailable WONDERLY, MADDIE B Primary Care Unavailable NIALE BAILEY Attending Unavailable WONDERLY, MADDIE Referring Unavailable WONDERLY, MADDIE Primary Care Unavailable HAIDER CALABRESE Admitting Unavailable CALABRESE, HAIDER [place] Attending Unavailable WONDERLY, MADDIE B Referring Unavailable WONDERLY, MADDIE B Primary Care Unavailable HAIDER CALABRESE Attending Unavailable HAIDER CALABRESE Referring Unavailable WONDERLY, MADDIE B Primary Care Unavailable ASHLEY TRUJILLO Attending Unavailable WONDERLY, MADDIE B Primary Care Unavailable Allergies Allergy Classification Reported Allergen(s) Allergy Type Date of Onset Reaction(s) Facility (20 sources) Amoxicillin; Translations: [Amoxicillin] Drug Allergy 4 Hives, Swelling [facility] (18 sources) Codeine Drug Allergy 2 Unknown, Unknown Reaction, face flushing [facility] (1 source) Codeine Drug Allergy [address] [facility] (20 sources) frovatriptan Drug Allergy 3 [facility] (20 sources) Penicillin V Drug Allergy 3 Hives [facility] (20 sources) rizatriptan Drug Allergy 3 [facility] (20 sources) SUMAtriptan Drug Allergy 3 [facility] (3 sources) Adhesive Tape Drug allergy (disorder) 4 [facility] Rep[facility] (1 source) Codeine Drug Allergy 4 [facility] (17 sources) Wound Dressing Adhesive Drug Allergy 4 Rash [facility] (6 sources) lurasidone; Translations: [LURASIDONE] Drug Allergy 4 Swelling [facility] (3 sources) lurasidone Drug Allergy 4 Facial Swelling [facility] Medications Current Medications Medication Drug Class(es) Dates Sig (Normalized) Sig (Original) [id number] 200 actuat albuterol 0.09 mg/actuat metered dose inhaler (11 sources) beta2-Adrenergic Agonist Start: 02-29-2024 End: 02-28-2025 [...] 04/02/2024 Active Start: 02-28-2022 Almotriptan Ma late 12.5 mg Tablet Active 12.5 MG PO As Directed as needed for Migraine Headache February 27, 2022 11:00pm Start: 10-22-2018 End: 02-28-2022 take 15 mg by mouth once daily as needed for headache Axert Discontinued 15 MG PO Daily as needed for Migraine Headache October 22, 2018 12:00am February 28, 2022 8:26am Start: 10-22-2018 End: 02-28-2022 take 15 mg by mouth once daily Axert Discontinued 15 M G PO Daily October 22, 2018 1:00am February 28, 2022 9:26am Axert PRN Active baclofen 10 mg oral tablet (20 sources) gamma-Aminobutyric Acid-ergic Agonist Start: 06-17-2024 End: 09-29-2024 take 1 tablet by mouth in the morning, then take 1 tablet by mouth at bedtime baclofen (LIORESAL) 10 mg tablet Take 1 tablet (10 mg total) by mouth in the morning and 1 tablet (10 mg total) before bedtime. 60 tablet 06/17/2024 Active calcium polycarbophil 625 mg oral tablet (20 sources) take 1 tablet by mouth in the morning polycarbophil (FIBERCON) 625 mg tablet Take 1 tablet (625 mg total) by mouth in the morning. Active celecoxib 200 mg oral capsule (20 sources) Nonsteroidal Anti-inflammatory Drug Start: 09-29-2024 take 1 capsule by mouth in the morning celecoxib (CeleBREX) 200 mg capsule Take 1 capsule (200 mg total) by mouth in the morning. 09/29/2024 Active Start: 10-22-2018 End: 07-11-2024 take 1 capsule by mouth once daily as needed for pain Celecoxib 200 mg capsule Discontinued 200 MG PO Daily as needed for Pain October 22, 2018 12:00am March 05, 2024 9:19am CeleBREX Active cholecalciferol 0.125 mg oral capsule (20 sources) Vitamin D Start: 03-21-2024 take 1 capsule by mouth once daily Cholecalciferol (Vitamin D3) 125 mcg (5,000 unit) capsule Active 5000 UNIT PO Daily March 20, 2024 11:00pm take 1 tablet by mouth in the mo rning cholecalciferol, vitamin D3, 5,000 units tablet Take 1 tablet (5,000 Units total) by mouth in the morning. Active citric acid 75 mg/ml / magnesium oxide 21.9 mg/ml / picosulfate sodium 0.0625 mg/ml oral solution (1 source) Calculi Dissolution Agent, Anti-coagulant Start: 02-08-2022 Clenpiq 10-3.5-12 MG-GM -GM/160ML 160 ML BOTTLE AT 3 PM AND 9 PM DAY PRIOR TO COLONOSCOPY Orally as directed for 1 days Jan, Active docusate sodium 10 mg/ml oral suspension (20 sources) take 5 mL by mouth in the morning docusate (COLACE) 50 mg/5 mL liquid Take 5 mL (50 mg total) by mouth in the morning. Active End: 09-29-2024 take 50 mg by mouth in the morning docusate (Colace) 50 MG/5ML liquid Take 50 mg by mouth in the morning. 09/29/2024 Discontinued estrogens, conjugated (group home) 0.625 mg oral tablet (13 sources) Estrogen Start: 07-15-2024 End: 10-29-2024 take 1 tablet by mouth in the morning estrogens, conjugated, (PREMARIN) 0.625 mg tablet Take 1 tablet (0.625 mg total) by mouth in the morning. 09/29/2024 Active hydrocortisone 10 mg/ml / neomycin 3.5 mg/ml / polymyxin b [id number] unt/ml otic solution (1 source) Aminoglycoside Antibacterial, Polymyxin-class Antibacterial, Corticosteroid Start: 10-03-2024 Neomycin-Polymyx in-HC 1 % solution Indications: Otalgia, left Administer 4 drops into affected ear(s) in the morning and 4 drops at noon and 4 drops in the evening and 4 drops before bedtime. 10 mL 10/03/2024 Active ibuprofen 600 mg oral tablet (20 sources) Nonsteroidal Anti-inflammatory Drug Start: 11-10-2023 End: 08-27-2024 take 1 tablet by mouth every six hours as needed for pain ibuprofen (MOTRIN) 600 mg tablet Take 1 tablet (600 mg total) by mouth every 6 (six) hours as needed for pain. 30 tablet 11/10/2023 Active LORazepam 0.5 mg oral tablet (4 sources) Benzodiazepine take 1 tablet by mouth every six hours as needed for anxiety LORazepam (Ativan) 0.5 MG tablet Take 0.5 mg by mouth every 6 (six) hours if needed for anxiety Active NON FORMULARY (2 sources) NON FORMULARY daily. Hormone compound from Dr León 0 Active OLANZapine 2.5 mg oral tablet (2 sources) Atypical Antipsychotic Start: 11-17-2024 take 1 tablet by mouth once daily at bedtime Olanzapine 2.5 mg tablet Active 2.5 MG PO Daily at bedtime November 26, 2024 12:00am omeprazole 40 mg delayed release oral capsule (20 sources) Proton Pump Inhibitor Start: 02-29-2024 End: 09-08-2024 take 1 capsule by mouth once daily Omeprazole 40 mg capsule,delayed release(DR/EC) Active 40 MG PO Daily March 04, 2024 11:00pm Start: 12-25-2023 End: 01-24-2024 take 1 capsule [...] 0 12/25/2023 12/28/2023 Active polyethylene glycol 3350 05103 mg powder for oral solution (20 sources) Osmotic Laxative polyethylene glycol (GLYCOLAX) 17 gram packet Indications: constipation Take 17 g by mouth in the morning. Indications: constipation. Active Polyethylene Glycol 3350 (Miralax) 17 gram/dose powder (1 source) Start: 11-26-2024 Polyethylene Glycol 3350 (Miralax) 17 gram/dose powder Active 17 GM PO Daily 1530 90 November 26, 2024 12:00am predniSONE 20 mg oral tablet (8 sources) Start: 08-27-2024 End: 09-01-2024 take 1 tablet by mouth once daily predniSONE (Deltasone) 20 MG tablet Indications: Chronic bilateral low back pain with bilateral sciatica Take 1 tablet (20 mg) by mouth Daily for 5 days 5 tablet 08/27/2024 09/01/2024 Active Start: 05-03-2024 End: 07-11-2024 predniSONE (Deltasone) 10 MG tablet 05/03/2024 07/11/2024 Discontinued (Therapy completed) End: 07-11-2024 predniSONE 10 MG (21) tablet therapy pack Take 1 tablet by mouth See administration instructions 07/11/2024 Discontinued (Therapy completed) predniSONE 10 MG (21) tablet therapy pack Take 1 tablet by mouth See administration instructions Active pregabalin 100 mg oral capsule (20 sources) Start: 09-03-2024 End: 11-25-2024 take 1 capsule by mouth in the morning, then take 1 capsule by mouth at bedtime pregabalin (LYRICA) 100 mg capsule Indications: Lumbar spondylosis , Disorder of sacrum , Spinal stenosis of lumbar region with neurogenic claudication Take 1 capsule (100 mg total) by mouth in the morning and 1 capsule (100 mg total) before bedtime. 60 capsule 1 11/25/2024 Active Start: 08-20-2024 End: 09-29-2024 take 1 capsule by mouth in the morning pregabalin (Lyrica) 75 MG capsule Take 75 mg by mouth in the morning and 75 mg in the evening. 08/20/2024 09/29/2024 Discontinued Psyllium (Hydrocil Instant) Packet (4 sources) Start: 02-28-2022 Psyllium (Hydr ocil Instant) Packet Active 1 PACKET PO Daily February 27, 2022 11:00pm Start: 02-28-2022 Psyllium (Hydr ocil Instant) Packet Active 1 PACKET PO Daily February 28, 2022 12:00am QUEtiapine 100 mg oral tablet (2 sources) Atypical Antipsychotic Start: 11-17-2024 take 1 tablet by mouth once daily at bedtime Quetiapine 100 mg tablet Active 100 MG PO Daily at bedtime November 26, 2024 12:00am Vitamin D-3 (6 sources) Vitamin D-3 Active ziprasidone 20 mg oral capsule (4 sources) Atypical Antipsychotic Start: 09-30-2024 take 1 capsule by mouth once daily at mealtime Ziprasidone Hcl (Geodon) 20 mg capsule Active 20 MG PO .daily November 26, 2024 12:00am give with food (meal/snack) Completed/Discontinued Medications Medication Drug Class(es) Dates Sig (Normalized) Sig (Original) acetaminophen 500 mg oral tablet (20 sources) Start: 11-10-2023 End: 09-29-2024 take 1 tablet by mouth every six hours as needed acetaminophen (Tylenol) 500 MG tablet Take 500 mg by mouth every 6 (six) hours if needed 11/10/2023 09/29/2024 Discontinued ALPRAZolam 0.25 mg oral tablet (20 sources) Benzodiazepine Start: 05-15-2024 End: 09-29-2024 take 1 tablet by mouth once daily as needed for anxiety ALPRAZolam (Xanax) 0.25 MG tablet Indications: Panic attacks (CMS/HCC) Take 1 tablet (0.25 mg) by mouth Daily as needed for anxiety 7 tablet 05/15/2024 09/29/2024 Discontinued azithromycin 500 mg oral tablet (5 sources) Macrolide Antimicrobial Start: 09-24-2024 End: 09-29-2024 take 1 tablet by mouth once daily azithromycin (Zithromax) 500 MG tablet Indications: Non-recurrent acute suppurative otitis media of both ears without spontaneous rupture of tympanic membranes Take 1 tablet (500 mg) by mouth Daily for 3 days 3 tablet 09/24/2024 09/29/2024 Discontinued ciprofloxacin 500 mg oral tablet (8 sources) Quinolone Antimicrobial Start: 02-28-2022 End: 04-11-2022 take 1 tablet by mouth twice daily Ciprofloxacin Hcl 500 mg tablet Discontinued 500 MG PO Twice daily February 27, 2022 11:00pm April 11, 2022 7:41am take 1 tablet by jonna th every twelve hours Cipro 500 MG 1 tablet Orally every 12 hr s Not-Taking/PRN dicyclomine hydrochloride 10 mg oral capsule (20 sources) Anticholinergic Start: 04-11-2022 End: 09-29-2024 take 1 capsule by mouth four times daily as needed for pain dicyclomine (Bentyl) 10 MG capsule Indications: Irritable bowel syndrome with diarrhea Take 1 capsule (10 mg) by mouth 4 (four) times a day as needed (abd pain) 120 capsule 09/28/2024 09/29/2024 Discontinued Bentyl PRN Activ e doxepin hydrochloride 10 mg oral capsule (10 sources) Tricyclic Antidepressant Start: 12-05-2023 End: 07-11-2024 take 1 capsule by mouth once daily at bedtime as needed Doxepin 10 mg capsule Discontinued 10 MG PO Daily at bedtime as needed March 04, 2024 11:00pm March 21, 2024 7:32am FreeTextSi capsule at bedtime Orally Once a day; Note: Source Status: Start; Refills: 3; Qty: 90 Capsule; Provider: Connie Mcgrath escitalopram 20 mg oral tablet (11 sources) Serotonin Reuptake Inhibitor Start: 02-28-2022 End: 03-21-2024 take 1 tablet by mouth once daily Escitalopram Oxalate 20 mg tablet Discontinued 20 MG PO Daily February 27, 2022 11:00pm March 21, 2024 7:33am Escitalopram Oxa late Not-Taking/PRN Escitalopram Oxa late Active estradiol 1 mg oral tablet (20 sources) Estrogen Start: 12-13-2023 End: 02-12-2025 take 1 tablet by mouth once daily in the morning Estradiol 1 mg tablet Discontinued 1 MG PO Every morning March 20, 2024 11:00pm July 28, 2024 8:07am Estradiol Active gabapentin 300 mg oral capsule (1 [...] 81 capsule 07/30/2024 08/20/2024 Discontinued (Alternate therapy) hydrocortisone 25 mg/ml rectal cream (20 sources) Corticosteroid Start: 11-08-2023 End: 09-29-2024 hydrocortisone (Anusol-HC) 2.5 % rectal cream Indications: Hemorrhoids, unspecified hemorrhoid type Insert into the rectum 2 (two) times a day 30 g 11/08/2023 09/29/2024 Discontinued hydrOXYzine hydrochloride 50 mg oral tablet (20 sources) Antihistamine Start: 12-10-2023 End: 09-29-2024 take 1 tablet by mouth every six hours as needed for anxiety and anxiety and anxiety hydrOXYzine HCl (Atarax) 50 MG tablet Indications: Anxiety Take 1 tablet (50 mg) by mouth every 6 (six) hours if needed for anxiety 120 tablet 2 12/10/2023 09/29/2024 Discontinued hyoscyamine sulfate 0.125 mg sublingual tablet (20 sources) Start: 10-08-2023 End: 09-29-2024 hyoscyamine (Levsin/SL) 0.125 MG SL tablet Indications: Generalized abdominal pain , Abdominal spasms Place 1 tablet (125 mcg) under the tongue every 4 (four) hours if needed for bladder spasms. 120 tablet 10/08/2023 09/29/2024 Discontinued Start: 10-22-2018 End: 04-11-2022 take 1 tablet under the tongue once daily as needed Hyoscyamine Sulfate 0.125 mg tablet, sublingual Discontinued 0.125 MG SUBLINGUAL Daily as needed for diverticulosis October 22, 2018 12:00am April 11, 2022 7:41am Lactobacillus Combination No.4 (Probiotic) 3 billion cell Capsule (4 sources) Start: 04-11-2022 End: 03-21-2024 take 3 capsules by mouth once daily Lactobacillus Combination No.4 (Probiotic) 3 billion cell Capsule Discontinued 3000 MMU CELLS PO Daily April 10, 2022 11:00pm March 21, 2024 7:34am Start: 04-11-2022 End: 03-21-2024 take 3 capsules by mouth once daily Lactobacillus Combination No.4 (Probiotic) 3 billion cell Capsule Discontinued 3000 MMU CELLS PO Daily April 11, 2022 12:00am March 21, 2024 8:34am Start: 04-11-2022 take 3 capsules by m outh once daily Lactobacillus Combination No.4 (Probiotic) 3 billion cell Capsule Active 3000 MMU CELLS PO Daily April 11, 2022 12:00am linaclotide 0.145 mg oral capsule (20 sources) Guanylate Cyclase-C Agonist Start: 07-28-2024 End: 11-26-2024 take 1 capsule by mouth once daily as needed Linaclotide (Linzess) 145 mcg capsule Discontinued 145 MCG PO Daily as needed November 26, 2024 9:42am November 26, 2024 9:48am lurasidone hydrochloride 20 mg oral tablet (6 sources) Atypical Antipsychotic Start: 09-19-2024 End: 09-29-2024 lurasidone (Latuda) 20 MG tablet 09/19/2024 09/29/2024 Discontinued melatonin 5 mg oral tablet (4 sources) Start: 10-22-2018 End: 03-21-2024 take 2 tablets by mouth once daily at bedtime as needed Melatonin 5 mg Tablet Discontinued 10 MG PO Daily at bedtime as needed for Insomnia October 22, 2018 12:00am March 21, 2024 7:34am Start: 10-22-2018 End: 03-21-2024 take 10 mg [...] Not-Taking/PRN Psyllium Seed (With Dextrose) (Fiber) Powder (4 sources) Start: 10-22-20 End: 04-12-20 22 take 30 g by mouth once daily Psyllium Seed (With Dextrose) (Fiber) Powder Discontinued 30 GM PO Daily October 22, 2018 12:00am February 28, 2022 8:27am Start: 10-22-2018 End: 02-28-2022 take 30 g by mouth once daily Psyllium Seed (With Dext angeline) (Fiber) Powder Discontinued 30 GM PO Daily October 22, 2018 1:00am February 28, 2022 9:27am Sennosides (Senna) 8.6 mg capsule (2 sources) Start: 07-28-2024 End: 11-26-2024 take 1 capsule by mouth twice daily Sennosides (Senna) 8.6 mg capsule Discontinued 8.6 MG PO Twice daily 60 July 27, 2024 11:00pm November 26, 2024 9:43am Start: 07-28-2024 take 1 capsule by mo [facility] twice daily Sennosides (Senna) 8.6 mg capsule Active 8.6 MG PO Twice daily 60 July 28, 2024 12:00am sertraline 50 mg oral tablet (20 sources) Serotonin Reuptake Inhibitor Start: 01-07-2024 End: 11-26-2024 take 1 tablet by mouth once daily in the morning Sertraline 50 mg tablet Discontinued 50 MG PO Every morning March 20, 2024 11:00pm November 26, 2024 9:44am Start: 12-10-2023 take 1.5 tablets by mouth in the morning sertraline (Zoloft) 50 MG tablet Indications: Anxiety Take 1.5 tablets (75 mg) by mouth in the morning. 90 tablet 1 12/10/2023 Active tiZANidine 4 mg oral tablet (13 sources) Central alpha-2 Adrenergic Agonist Start: 08-27-2024 End: 09-29-2024 take 1 tablet by mouth twice daily as needed for muscle spasms tiZANidine (Zanaflex) 4 MG tablet Indications: Chronic bilateral low back pain with bilateral sciatica Take 1 tablet (4 mg) by mouth 2 (two) times a day as needed for muscle spasms for up to 10 days 20 tablet 08/27/2024 09/29/2024 Discontinued Problems Active Problems Problem Classification Problem Date Documented Da te Episodic/Chronic Anxiety disorders (20 sources) Anxiety; Translations: [Anxiety disorder, unspecified] Onset: 04-10-2023 04-10-2023 Chronic Complications of surgical procedures or medical care (7 sources) Menopausal flushing; Translations: [Symptomatic postprocedural ovarian failure] Onset: 09-29-2024 09-29-2024 Chronic Disorders of lipid metabolism (20 sources) Hypertriglyceridemia ; Translations: [Pure hyperglyceridemia] Onset: 04-10-2023 04-10-2023 Chronic Diverticulosis and diverticulitis (20 sources) Diverticular disease of colon; Translations: [Diverticulosis of intestine, part unspecified, without perforation or abscess without bleeding] Onset: 10-09-2018 Resolved: 03-28-2022 Chronic Gastrointestinal hemorrhage (9 sources) Hematochezia; Translations: [Melena] Onset: 02-08-2022 Resolved: 03-28-2022 Episodic Headache; including migraine (20 sources) Migraine; Translations: [Migraine, unspecified, not intractable, without status migrainosus] Onset: 04-10-2023 04-10-2023 Chronic Immunizations and screening for infectious disease (1 source) Encounter for screening for human papillomavirus (HPV); Translations: [ENC SCREENING HUMAN PAPILLOMAVIRUS] Onset: 09-19-2022 Episodic Nutritional deficiencies (20 sources) Vitamin D deficiency; Translations: [Vitamin D deficiency, unspecified] Onset: 04-10-2023 04-10-2023 Chronic Osteoarthritis (1 source) Primary generalized (osteo)arthritis; Translations: [Primary generalized (osteo)arthritis] Onset: 07-11-2023 Chronic Other ear and sense organ disorders (2 sources) Tinnitus of left ear; Translations: [Tinnitus, left ear] 09-24-2024 Episodic Other ear and sense organ disorders (2 sources) Bilateral tinnitus; Translations: [Tinnitus, bilateral] 10-03-2024 Episodic Other ear and sense organ disorders (1 source) Otalgia, left ear; Translations: [Otalgia, unspecified] 10-03-2024 Episodic Other endocrine disorders (2 sources) Disorder of endocrine system; Translations: [Endocrine disorder, unspecified] 09-04-2024 Episodic Other gastrointestinal disorders (20 sources) Irritable bowel syndrome; Translations: [Irritable bowel syndrome without diarrhea] Onset: 04-10-2023 12-26-2023 Chronic Other gastrointestinal disorders (2 sources) Irritable bowel syndrome without diarrhea; Translations: [Irritable bowel syndrome] Onset: 02-08-2022 Resolved: 02-08-2022 Chronic Other gastrointestinal disorders (2 sources) Irritable bowel syndrome with diarrhea; Translations: [Irritable bowel syndrome with diarrhea] 09-28-2024 Chronic Other gastrointestinal disorders (1 source) Irritable bowel syndrome with diarrhea Chronic Other gastrointestinal disorders (3 sources) Irritable bowel syndrome characterized by alternating bowel habit; Translations: [Mixed irritable bowel syndrome] 03-05-2024 Chronic Other gastrointestinal disorders (2 sources) Mixed irritable bowel syndrome; Translations: [Irritable bowel syndrome] 03-05-2024 Chronic Other gastrointestinal disorders (17 sources) Constipation; Translations: [Constipation, unspecified] Onset: 09-24-2024 [...] Onset: 03-27-2024 Chronic Other nervous system disorders (20 sources) Difficulty walking; Translations: [Difficulty in walking, not elsewhere classified] Onset: 04-10-2023 04-10-2023 Chronic Other nervous system disorders (1 source) Other chronic pain; Translations: [Other chronic pain] Onset: 01-22-2024 Chronic Other nervous system disorders (1 source) Unspecified mononeuropathy of bilateral lower limbs; Translations: [Unspecified mononeuropathy of bilateral lower limbs] Onset: 12-26-2023 Chronic Other nutritional; endocrine; and metabolic disorders (20 sources) Cholesterol level - finding; Translations: [Lipoprotein deficiency] Onset: 04-10-2023 04-10-2023 Chronic Other nutritional; endocrine; and metabolic disorders (20 sources) Body mass index 30+ - obesity; Translations: [Obesity, unspecified] Onset: 04-10-2023 04-10-2023 Chronic Other nutritional; endocrine; and metabolic disorders (2 sources) Obesity caused by energy imbalance; Translations: [Morbid (severe) obesity due to excess calories] 08-27-2024 Chronic Other screening for suspected conditions (not mental disorders or infectious disease) (11 sources) Encounter for screening for malignant neoplasm of cervix; Translations: [Patient encounter status] Onset: 09-18-2022 Episodic Other upper respiratory infections (20 sources) Frontal sinusitis; Translations: [Chronic frontal sinusitis] Onset: 04-10-2023 04-10-2023 Chronic Otitis media and related conditions (20 sources) Chronic left mastoiditis; Translations: [Chronic mastoiditis, left ear] Onset: 04-10-2023 04-10-2023 Chronic Residual codes; unclassified (2 sources) Obstructive sleep apnea syndrome; Translations: [Obstructive sleep apnea (adult) (pediatric)] 08-27-2024 Chronic Residual codes; unclassified (1 source) Hypersomnia, unspecified; Translations: [Hypersomnia, unspecified] Onset: 03-27-2024 Chronic Residual codes; unclassified (1 source) Other sleep apnea; Translations: [Other sleep apnea] Onset: 03-27-2024 Chronic Residual codes; unclassified (4 sources) Flushing; Translations: [Flushing] 09-04-2024 Episodic Residual codes; unclassified (4 sources) Menopause present; Translations: [Asymptomatic menopausal state] 09-04-2024 Episodic Spondylosis; intervertebral disc disorders; other back problems (20 sources) Degeneration of lumbosacral intervertebral disc; Translations: [Other intervertebral disc degeneration, lumbosacral region] Onset: 04-10-2023 04-10-2023 Chronic Spondylosis; intervertebral disc disorders; other back problems (20 sources) Acute back pain with sciatica; Translations: [Lumbago with sciatica, right side] Onset: 04-10-2023 04-10-2023 Episodic Unclassified (20 sources) Patient on antidepressant monitoring plan Onset: 08-08-2023 08-08-2023 Unclassified (1 source) Otalgia, left 10-03-2024 Unclassified (1 source) Low back pain, unspecified; Translations: [Low back pain, unspecified] Onset: 01-22-2024 Past or Other Problems Problem Classification Problem Date Documented Da te Episodic/Chronic Abdominal pain (10 sources) Abdominal pain; Translations: [Unspecified abdominal pain] Onset: 02-08-2022 Resolved: 03-28-2022 Episodic Hemorrhoids (1 source) Unspecified hemorrhoids Onset: 04-12-2022 Resolved: 04-12-2022 Episodic Miscellaneous mental health disorders (20 sources) Symptoms of depression; Translations: [Other symptoms and signs involving emotional state] Onset: 04-10-2023 04-10-2023 Episodic Mood disorders (20 sources) Mood disorders Onset: 05-03-2023 05-03-2023 Nausea and vomiting (3 sources) Nausea and vomiting; Translations: [Nausea with vomiting, unspecified] 12-25-2023 Episodic Other acquired deformities (1 source) Spondylolysis, lumbar region; Translations: [Spondylolysis, lumbar region] Onset: 03-25-2024 Episodic Other aftercare (20 sources) Patient encounter status; 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] Onset: 05-11-2023 05-11-2023 Episodic Other connective tissue disease (1 source) Pain in right foot Onset: 01-14-2022 Resolved: 01-14-2022 Episodic Other gastrointestinal disorders (20 sources) History of diverticulitis; Translations: [Personal history of other diseases of the digestive system] Onset: 10-09-2018 04-18-2023 Episodic Other non-traumatic joint disorders (20 sources) Pain in right shoulder; Translations: [Pain in joint, shoulder region] Onset: 08-08-2023 08-08-2023 Episodic Other non-traumatic joint disorders (1 source) Other specified joint disorders, right shoulder; Translations: [Other specified joint disorders, right shoulder] Onset: 05-07-2024 Episodic Otitis media and related conditions (20 sources) Otitis media; Translations: [Otitis media, unspecified, unspecified ear] Onset: 04-10-2023 04-10-2023 Episodic Residual codes; unclassified (20 sources) Insomnia; Translations: [Insomnia, unspecified] Onset: 04-10-2023 04-10-2023 Episodic Superficial injury; contusion (1 source) Contusion of right foot, initial encounter Onset: 01-14-2022 Resolved: 01-14-2022 Episodic Results Test Name Value Interpretation Reference Range Facility MR LUMBAR SPINE WO CONTon MR LUMBAR SPINE WO CONT MR LUMBAR SPINE WO CONT History: Pain.Low back pain. Prior surgery. No recent injury. Persistent pain. MRI lumbar spine Technique: Multiplanar/multiseq uence images were obtained of the lumbar spine. No contrast was used. COMPARISON: 11/06/2023 Findings: Position of the conus medullaris is within normal limits . Vertebral body heights and alignments are normal. The marrow signal is normal.No marrow infiltration to suspect occult fracture, infection or metastatic disease. There is no concerning pedicle edema. Facet arthrosis is noted. This is greatest at L5 followed by L4. No spondylolisthesis L1-2 disc space is normal L2-L3 disc space is normal L3-L4 disc space is normal L4-L5 disc space is stable. Facet arthrosis is noted. No concerning foraminal stenosis. Ligament flavum hypertrophy is observed. L5-S1 disc space is desiccated and very narrowed. Disc protrusion osteophyte complex formation is appreciated. Prior right hemiabdomen laminectomy. Foraminal stenosis bilaterally remains. No concerning central stenosis No elevation the PLL. The thecal sac terminates at S3 Impression: * Stable exam. No acute process. Chronic findings and postsurgical changes are detailed above.. Finalized by Aby Carter MD on 11/03/2024 8:47 AM Normal [facility] IGP,APTIMA HPV,AGE GDLNon AGE GDLN ACOG TESTING Note . [facility] Comment on above: TESTS RESULT FLAG UN ITS REF RANGE LAB Clinician Provided Cytology Information Source.............Vagina No. of containers..01 ThinPrep Vial Age Algo ACOG Denise... 30-65 01 FLAG LEGEND: L-Low Normal,H-High Normal,LL-Alert Low,HH-Alert High <-Panic Low,>-Panic High,A-Abnormal,AA-Critical Abnormal Performed at: 01 =[address] [address] Alexandria Ball MD, HPV APTIMA Negative Negative [facility] Comment on above: This nucleic acid am plification test detects fourteen high- risk HPV types (16,18,31,33,35,39,45,51,52,56,58,59,66,68) without differentiation. Performed at: =[address] [id number] Mission Manager: Alexandria Ball MD, Phone: [phone] Performed at: [address] [id number] Mission Manager: Alexandria Ball MD, Phone: [phone] IGP, APTIMA HPV, RFX 16/18,45 Note . [facility] Comment on above: TESTS RESULT FLAG UN ITS REF RANGE LAB DIAGNOSIS: 02 NEGATIVE FOR INTRAEPITHELIAL LESION OR MALIGNANCY. Specimen adequacy: 02 Satisfactory for evaluation. Performed by: Aiyana Silva, Fox Farmer (ASCP) . 02 Note: Note 02 The Pap smear is a screening test designed to aid in the detection of premalignant and malignant conditions of the uterine cervix. It is not a diagnostic procedure and should not be used as the sole means of detecting cervical cancer. Both false-positive and false-negative reports do occur. Test Methodology: Note 02 This liquid based ThinPrep(R) pap test was screened with the use of an image guided system. HPV Genotype Reflex Note 02 Criteria not met, HPV Genotype not performed. FLAG LEGEND: L-Low Normal,H-High Normal,LL-Alert Low,HH-Alert High <-Panic Low,>-Panic High,A-Abnormal,AA-Critical Abnormal Performed at: 02 [address] [facility] [address] [address] Alexandria Ball MD, [facility] XR ABDOMEN 1 VIEWon 07-11-20 24 XR ABDOMEN 1 VIEW Exam: XR - [...] M.D. 2024-07-11 09:35:45 Normal Not Available XR Abdomen Single viewon Exam: XR - ABDOMEN 1 VIEW Reason [...] Electronically Signed Domingo Polk M.D. 2024-07-11 09:35:45 IMAGING Domingo Polk MD - 07/11/2024 Exam: XR - ABDOMEN 1 VIEW Reason [...] Electronically Signed Domingo Polk M.D. 2024-07-11 09:35:45 [facility] Radiology Study observation (narrative) [facility] XR Abdomen Single viewOrdere d By: Domingo Polk on 07-11-2024 [place] [employer] Work Phone: XR SHOULDER 2+ VIEWS RIGHTon 05-06-2024 XR SHOULDER 2+ VIEWS RIGHT FINDINGS: The acromion is mildly down-sloping. Minimal osteophyte formation involves the AC joint. No fracture or dislocation or rotator cuff calcification is seen. Upper chest is clear. IMPRESSION: Mild arthritis, acromial morphology possible impingement TRANSCRIBED BY: ELECTRONICALLY SIGNED BY: Benjamin Cain MD Normal Not Available [place] 04-01-2024 L Specimen: [id number] Received: 04/01/24 Status: JAMARCUS Ware Num: [id number] Spec Type: Surgical Subm Dr: Chelsea Robbins DO Tissues: A Colon Biopsy (CECAL POLYP) B Colon Biopsy (SIGMOID POLYP) Procedures: HE/4, Gross/Micro L4/2 Age/ Patient Sex Location Account Attending Physician Georgette Wu 44/F [id number] Chelsea Robbins DO SPEC NUM: [id number] RECD: 04/01/24 STATUS: JAMARCUS WARE NUM: [id number] MARIA C: 04/01/24- SUBM DR: Chelsea Robbins DO ENTERED: 04/01/[address]: SPEC TYPE: Surgical DEPT: S ORDERED: [...] family history of colon cancer CPT Codes 83718s5 Specimen: [id number] Received: 04/01/24 Status: JAMARCUS Ware Num: [id number] Spec Type: Surgical Subm Dr: Chelsea Robbins DO Tissues: A Colon Biopsy (CECAL POLYP) B Colon Biopsy (SIGMOID POLYP) Procedures: MARIE/Afia, Gross/Micro L4/2 Patient: Georgette Wu [id number] (Continued) Signed (signature on file) Zhao Dawkins MD 04/02/24 1503 Normal [facility] Bacteria identified Cx Nom ( Stl)on 12-26-2023 STOOL CULT FINAL REPORT SEE NOTE Normal P [facility] Comment on above: Result Comment: NOTE Culture negative for Salmonella, Shigella, Campylobacter, E. coli O157, Vibrio, Aeromonas, and Plesiomonas species. Performed By: [email or web address] [address] [place] [id number] [employer] Supervisor: Song Britton MD, PhD CLIA Number: [id number] STOOL CULT PRELIM REPORT SEE NOTE Normal [facility] Comment on above: Result Comment: NOTE Culture negative for Salmonella, Shigella and E. coli O157. Performed By: [email or web address] [address] [place] [address] [employer] Supervisor: Song Britton MD, PhD CLIA Number: [id number] C DIFFICILE BY PCRon 024 C. difficile toxin genes KEVIN+probe Ql (Stl) TOXIGENIC C DIFF Negative (qualifier value) 027 NAP1 Negative (qualifier value) Normal PRNEG [facility] Comment on above: Performed By: #### 5 4067-4, OPS #### [facility] ([id number]) [address], [address] [place] [address] CBC W Auto Differential pane l (Bld)on 12-26-2023 Basophils (Bld) [#/Vol] 11 10*3/uL N [facility] Basophils/100 WBC (Bld) 0.1 % N [facility] Eosinophils (Bld) [#/Vol] 0 10*3/uL Low [facility] Eosinophils/100 WBC (Bld) 0.0 % [facility] Erythrocyte distribution width (RBC) [Ratio] 13.2 % 11.0 - 15.0 % [facility] Hematocrit (Bld) [Volume fraction] 42.3 % 35.0 - 45.0 % [facility] Hemoglobin (Bld) [Mass/Vol] 14.2 g/dL 11.7 - 15.5 g/dL [facility] Interpretation and review of laboratory results Abnormal [facility] Lymphocytes (Bld) [#/Vol] 2553 10*3/uL [facility] Lymphocytes/100 WBC (Bld) 23.0 % [facility] MCH (RBC) [Entitic mass] 28.4 pg 27.0 - 33.0 pg [facility] MCHC (RBC) [Mass/Vol] 33.6 g/dL 32.0 - 36.0 g/dL [facility] MCV (RBC) [Entitic vol] 84.6 fL 80.0 - 100.0 fL [facility] Monocytes (Bld) [#/Vol] 444 10*3/uL [facility] Monocytes/100 WBC (Bld) 4.0 % [facility] Neutrophils (Bld) [#/Vol] 8092 10*3/uL High [facility] Neutrophils/100 WBC (Bld) 72.9 % [facility] Platelet mean volume (Bld) [Entitic vol] 9.9 fL 7.5 - 12.5 fL [facility] Platelets (Bld) [#/Vol] 379 10*3/uL [facility] RBC (Bld) [#/Vol] 5.00 10*6/uL [facility] WBC (Bld) [#/Vol] 11.1 10*3/uL High [facility] Comprehensive metabolic pane pillo 12-26-2023 Albumin [Mass/Vol] 4.2 g/dL 3.6 - 5.1 g/dL [facility] Albumin/Globulin [Mass ratio] 1.6 {ratio} [facility] ALP [Catalytic activity/Vol] 82 U/L 31 - 125 U/L [facility] ALT [Catalytic activity/Vol] 14 U/L 6 - 29 U/L [facility] AST [Catalytic activity/Vol] 14 U/L 10 - 30 U/L [facility] Bilirubin [Mass/Vol] 0.8 mg/dL 0.2 - 1 .2 mg/dL [facility] Calcium [Mass/Vol] 9.5 mg/dL 8.6 - 10. 2 mg/dL [facility] Chloride [Moles/Vol] 103 mmol/L 98 - 11 0 mmol/L [facility] CO2 [Moles/Vol] 27 mmol/L 20 - 32 mmol/L [facility] Creatinine [Mass/Vol] 0.53 mg/dL 0.50 - 0.99 mg/dL [facility] GFR/1.73 sq M.predicted among non-blacks MDRD (S/P/Bld) [Vol rate/Area] 118 mL/min/{1.73_m2} > OR = 60 mL/min/1.73m 2 [facility] Globulin (S) [Mass/Vol] 2.7 g/dL N [facility] Glucose [Mass/Vol] 81 mg/dL 65 - 99 mg/dL [facility] Comment on above: Fasting reference interval Potassium [Moles/Vol] 3.9 mmol/L 3.5 - 5.3 mmol/L [facility] Protein [Mass/Vol] 6.9 g/dL 6.1 - 8.1 g/dL [facility] Sodium [Moles/Vol] 138 mmol/L 135 - 146 mmol/L [facility] Urea nitrogen [Mass/Vol] 8 mg/dL 7 - 25 mg/dL [facility] Urea nitrogen/Creatinine [Mass ratio] SEE NOTE: [facility] Comment on above: Not Reported: BUN an d Creatinine are within reference range. E. coli shiga-like toxin IA Ql (Stl)on 12-26-2023 E.COLI SHIGA LIKE TOXIN BY EIA Negative Normal Negative [facility] Comment on above: Result Comment: NOTE INTERPRETIVE [...] the diagnosis of hemorrhagic colitis. Performed By: [email or web address] [address] [place] [address] [employer] Supervisor: Song Britton MD, PhD CLIA Number: [id number] FECAL OCCULT BLOODon 024 Hemoglobin.gastrointest inal Ql (Stl) Negative Normal NEG [facility] Comment on above: Performed By: #### 2 335-8 #### [facility] ([id number]) [address], [address] [place] [address] No Panel Informationon 12-26 Performing Organization Information Site ID: QPT Name: [employer] [facility] [address] Address: [address] [place] [address], [address] [place] [id number] Director: Aaron Mendiola MD [facility] [employer] e O AND P SCREENon 12-26-2023 O AND P SCREEN GIARDIA SPECIFIC Ag Negative (qualifier value) GIARDIA ANTIGEN NOT DETECTED CRYPTOSPORIDIUM AG Negative (qualifier value) CRYPTOSPORIDIUM ANTIGEN NOT DETECTED NOTE: A Giardia/Cryptosporid ium Screen has been performed. A traditional Ova and Parasite exam, if collected in a preservative, may be requested by contacting the laboratory at [phone] within 72 hours of collection for cases of persistent diarrhea or if the patient has visited an endemic area or traveled outside the [place] Normal [facility] Comment on above: Performed By: #### 5 4067-4, OPS #### [facility] ([id number]) [address], [address] [place] [address] XR ABDOMEN 2 VIEWon 10-08-20 XR ABDOMEN [...] 07-11-2023 ALT [Catalytic activity/Vol] 14 U/L 7-52 [facility] Albumin [Mass/volume] in Ser um or Plasma by Bromocresol green (BCG) dye binding methoOrdered By: Cassandra Mixon on 07-11-2023 Albumin BCG dye [Mass/Vol] 4.3 g/dL 3.5-5.7 [facility] Alkaline phosphatase [Enzyma tic activity/volume] in Serum or PlasmaOrdered By: Cassandra Mixon on 07-11-2023 ALP [Catalytic activity/Vol] 77 U/L 34-104 [facility] Aspartate aminotransferase [ Enzymatic activity/volume] in Serum or PlasmaOrdered By: Cassandra Mixon on 07-11-2023 AST [Catalytic activity/Vol] 16 U/L 13-39 [facility] Basophils Auto (Bld) [#/Vol] Ordered By: Cassandra Mixon on 07-11-2023 Basophils (Bld) [#/Vol] 0.0 10*3/uL 0.0-0.2 [facility] Basophils/100 WBC Auto (Bld) Ordered By: Cassandra Mixon on 07-11-2023 Basophils/100 WBC (Bld) 0.2 % . [facility] Bilirubin.total [Mass/volume ] in Serum or PlasmaOrdered By: Cassandra Mixon on 07-11-2023 Bilirubin [Mass/Vol] 0.5 mg/dL 0.3-1.0 [facility] Calcium [Mass/volume] in Ser um or PlasmaOrdered By: Cassandra Mixon on 07-11-2023 Calcium [Mass/Vol] 9.6 mg/dL 8.6-10.3 [facility] Carbon dioxide, total [Moles /volume] in Serum or PlasmaOrdered By: Cassandra Mixon on 07-11-2023 CO2 [Moles/Vol] 29.5 mmol/L 21.0-31.0 [facility] Chloride [Moles/volume] in S mon[place] or PlasmaOrdered By: Cassandra Mixon on 07-11-2023 Chloride [Moles/Vol] 103 mmol/L 98-107 [facility] Complete Blood Count Auto Di ffon 07-11-2023 Basophils (Bld) [#/Vol] 0.0 10*3/uL Normal 0.0-0.2 [facility] Comment on above: Result Comment: PERF ORMED BY: [place] [address] PATHOLOGIST QUALITATIVE RESEARCHER JADYN GUADARRAMA M.D. Performed By: #### C BC, CMP #### [address] Basophils/100 WBC (Bld) 0.2 % Normal . T marie [facility] Comment on above: Performed By: #### C BC, CMP #### [address] Eosinophils (Bld) [#/Vol] 0.0 10*3/uL Normal 0.0-0.45 [facility] Comment on above: Performed By: #### C BC, CMP #### [address] Eosinophils/100 WBC (Bld) 0.0 % Normal . [facility] Comment on above: Performed By: #### C BC, CMP #### [address] Erythrocyte distribution width (RBC) [Ratio] 13.0 % Normal 11.9-15.3 [facility] Comment on above: Performed By: #### C BC, CMP #### [address] Hematocrit (Bld) [Volume fraction] 40.0 % Normal 34.0-46.4 [facility] Comment on above: Performed By: #### C BC, CMP #### [address] Hemoglobin (Bld) [Mass/Vol] 13.8 g/dL Normal 11.8-15.4 [facility] Comment on above: Performed By: #### C BC, CMP #### [address] Lymphocytes (Bld) [#/Vol] 2.7 10*3/uL Normal 1.00-4.8 [facility] Comment on above: Performed By: #### C BC, CMP #### [address] Lymphocytes/100 WBC (Bld) 27.6 % Normal . [facility] Comment on above: Performed By: #### C BC, CMP #### [address] MCH (RBC) [Entitic mass] 28.5 pg Normal 24.7-34.3 [facility] Comment on above: Performed By: #### C BC, CMP #### [address] MCV (RBC) [Entitic vol] 82.7 fL Normal 80-100 T [facility] Comment on above: Performed By: #### C BC, CMP #### [address] Mean Corpuscular HGB Conc 34.5 g/dL Normal 32.0-35.0 [facility] Comment on above: Performed By: #### C BC, CMP #### [address] Monocytes (Bld) [#/Vol] 0.7 10*3/uL Normal 0.0-0.8 [facility] Comment on above: Performed By: #### C BC, CMP #### [address] Monocytes/100 WBC (Bld) 7.0 % Normal . [facility] Comment on above: Performed By: #### C BC, CMP #### [address] Neutrophils (Bld) [#/Vol] 6.4 10*3/uL Normal 1.8-7.7 [facility] Comment on above: Performed By: #### C BC, CMP #### [address] Neutrophils/100 WBC (Bld) 65.2 % Normal . [facility] Comment on above: Performed By: #### C BC, CMP #### [address] NRBC% 0.2 /100{WBC} Normal 0-0.5 [facility] Comment on above: Performed By: #### C BC, CMP #### [address] Platelet mean volume (Bld) [Entitic vol] 8.2 fL Normal 6.3-10.7 [facility] Comment on above: Performed By: #### C BC, CMP #### [address] Platelets (Bld) [#/Vol] 379 10*3/uL Normal 150-450 [facility] Comment on above: Performed By: #### C BO, CMP #### [address] RBC (Bld) [#/Vol] 4.84 10*6/uL Normal 3.60-5.00 [facility] Comment on above: Performed By: #### C BO, CMP #### [address] WBC (Bld) [#/Vol] 9.8 10*3/uL Normal 3.8-11.6 [facility] Comment on above: Performed By: #### C BO, CMP #### [address] Comprehensive Metabolic Pane pillo 07-11-2023 Albumin [Mass/Vol] 4.3 g/dL Normal 3.5-5.7 [facility] Comment on above: Performed By: #### C BC, CMP #### [place] [address] [place] Albumin/Globulin [Mass ratio] 1.5 {ratio} Normal [facility] Comment on above: Performed By: #### C BC, CMP #### [address] ALP [Catalytic activity/Vol] 77 U/L Normal 34-104 [facility] Comment on above: Result Comment: PERF ORMED BY: [place] [phone] PATHOLOGIST QUALITATIVE RESEARCHER JADYN GUADARRAMA M.D. Performed By: #### C BC, CMP #### [facility] [address] ALT [Catalytic activity/Vol] 14 U/L Normal 7-52 [facility] Comment on above: Performed By: #### C BC, CMP #### [facility] [address] Anion gap [Moles/Vol] 10.6 mmol/L Normal 6.0-15.0 [facility] Comment on above: Performed By: #### C BC, CMP #### [address] AST [Catalytic activity/Vol] 16 U/L Normal 13-39 [facility] Comment on above: Performed By: #### C BC, CMP #### [place] [address] [place] Bilirubin [Mass/Vol] 0.5 mg/dL Normal 0.3-1.0 [facility] Comment on above: Performed By: #### C BC, CMP #### [facility] [address] [place] [address] [place] Calcium [Mass/Vol] 9.6 mg/dL Normal 8.6-10.3 [facility] Comment on above: Performed By: #### C BC, CMP #### [facility] [address] [place] [address] [place] Chloride [Moles/Vol] 103 mmol/L Normal 98-107 [facility] Comment on above: Performed By: #### C BC, CMP #### [facility] [address] [place] [id number] [place] CO2 [Moles/Vol] 29.5 mmol/L Normal 21.0-31.0 [facility] Comment on above: Performed By: #### C BC, CMP #### [facility] [address] [place] [address] [place] Creatinine [Mass/Vol] 0.61 mg/dL Normal 0.60-1.20 [facility] Comment on above: Performed By: #### C BC, CMP #### [place] [address] [place] GFR/1.73 sq M.predicted MDRD (S/P/Bld) [Vol rate/Area] mL/min/{1.73_m2} Normal [facility] Comment on above: Performed By: #### C BC, CMP #### [place] [address] [place] Globulin (S) [Mass/Vol] 2.9 g/dL Normal T [facility] Comment on above: Performed By: #### C BC, CMP #### [address] Glucose [Mass/Vol] 75 mg/dL Normal 70-100 [facility] Comment on above: Result Comment: [place] Glucose Reference Range is dependent on time and content of last meal. Glucose of more than 200 mg/dL in a nonstressed, ambulatory subject supports the diagnosis of Diabetes Mellitus. ADA recommended reference range Performed By: #### C BC, CMP #### [address] Potassium [Moles/Vol] 4.1 mmol/L Normal 3.5-5.1 [facility] Comment on above: Performed By: #### C BC, CMP #### [address] Protein [Mass/Vol] 7.2 g/dL Normal 6.4-8.9 [facility] Comment on above: Performed By: #### C BC, CMP #### [address] Sodium [Moles/Vol] 139 mmol/L Normal 136-145 [facility] Comment on above: Performed By: #### C BC, CMP #### [address] Urea nitrogen [Mass/Vol] 8 mg/dL Normal 7-25 [facility] Comment on above: Performed By: #### C BC, CMP #### [address] [place] [address] [facility] Creatinine [Mass/volume] in Serum or PlasmaOrdered By: Cassandra Mixon on 07-11-2023 Creatinine [Mass/Vol] 0.61 mg/dL 0.60-1.20 [facility] Eosinophils Auto (Bld) [#/Vo l]Ordered By: Cassandra Mixon on 07-11-2023 Eosinophils (Bld) [#/Vol] 0.0 10*3/uL 0.0-0.45 [facility] Eosinophils/100 WBC Auto (Bl d)Ordered By: Cassandra Mixon on 07-11-2023 Eosinophils/100 WBC (Bld) 0.0 % . [facility] Erythrocyte distribution wid th Auto (RBC) [Ratio]Ordered By: Cassandra Mixon on 07-11-2023 Erythrocyte distribution width (RBC) [Ratio] 13.0 % 11.9-15.3 [facility] Globulin Calc (S) [Mass/Vol] Ordered By: Cassandra Mixon on 07-11-2023 Globulin (S) [Mass/Vol] 2.9 g/dL [facility] Glucose [Mass/volume] in Ser um or PlasmaOrdered By: Cassandra Mixon on 07-11-2023 Glucose [Mass/Vol] 75 mg/dL 70-100 [facility] Comment on above: ADA recommended refe rence rangeRandom Glucose Reference Range is dependent on time and content of last meal. Glucose of more than 200 mg/dL in a nonstressed, ambulatory subject supports the diagnosis of Diabetes Mellitus. Hematocrit Auto (Bld) [Volum e fraction]Ordered By: Cassandra Mixon on 07-11-2023 Hematocrit (Bld) [Volume fraction] 40.0 % 34.0-46.4 [facility] Hemoglobin [Mass/volume] in BloodOrdered By: Cassandra Mixon on 07-11-2023 Hemoglobin (Bld) [Mass/Vol] 13.8 g/dL 11.8-15.4 [facility] Leukocytes [#/volume] correc seb for nucleated erythrocytes in Blood by Automated counOrdered By: Cassandra Mixon on 07-11-2023 WBC corrected for nucl RBC Auto (Bld) [#/Vol] 9.8 10*3/uL 3.8-11.6 [facility] Lymphocytes Auto (Bld) [#/Vo l]Ordered By: Cassandra Mixon on 07-11-2023 Lymphocytes (Bld) [#/Vol] 2.7 10*3/uL 1.00-4.8 [facility] Lymphocytes/100 WBC Auto (Bl d)Ordered By: Cassandra Mixon on 07-11-2023 Lymphocytes/100 WBC (Bld) 27.6 % . [facility] MCH Auto (RBC) [Entitic mass ]Ordered By: Cassandra Mixon on 07-11-2023 MCH (RBC) [Entitic mass] 28.5 pg 24.7-34.3 [facility] MCHC Auto (RBC) [Mass/Vol]Or dered By: Cassandra Mixon on 07-11-2023 MCHC (RBC) [Mass/Vol] 34.5 g/dL 32.0-35.0 [facility] MCV Auto (RBC) [Entitic vol] Ordered By: Cassandra Mixon on 07-11-2023 MCV (RBC) [Entitic vol] 82.7 fL 80-100 [facility] Monocytes Auto (Bld) [#/Vol] Ordered By: Cassandra Mixon on 07-11-2023 Monocytes (Bld) [#/Vol] 0.7 10*3/uL 0.0-0.8 [facility] Monocytes/100 WBC Auto (Bld) Ordered By: Cassandra Mixon on 07-11-2023 Monocytes/100 WBC (Bld) 7.0 % . [facility] Neutrophils Auto (Bld) [#/Vo l]Ordered By: Cassandra Mixon on 07-11-2023 Neutrophils (Bld) [#/Vol] 6.4 10*3/uL 1.8-7.7 [facility] Neutrophils/100 WBC Auto (Bl d)Ordered By: Cassandra Mixon on 07-11-2023 Neutrophils/100 WBC (Bld) 65.2 % . [facility] No Panel InformationOrdered By: Cassandra Mixon on 07-11-2023 Estimated GFR (CKD-EPI) > 60.0 mL/Min [facility] Creatinine Clearance (Chem N/A [facility] Nucleated erythrocytes [Pres ence] in Blood by Automated countOrdered By: Cassandra Mixon on 07-11-2023 Nucleated RBC Auto Ql (Bld) 0.2 /100{WBC} 0-0.5 [facility] Platelet mean volume Auto (B ld) [Entitic vol]Ordered By: Cassandra Mixon on 07-11-2023 Platelet mean volume (Bld) [Entitic vol] 8.2 fL 6.3-10.7 [facility] Platelets Auto (Bld) [#/Vol] Ordered By: Cassandra Mixon on 07-11-2023 Platelets (Bld) [#/Vol] 379 10*3/uL 150-450 [facility] Potassium [Moles/volume] in Serum or PlasmaOrdered By: Cassandra Mixon on 07-11-2023 Potassium [Moles/Vol] 4.1 mmol/L 3.5-5.1 [facility] Protein [Mass/volume] in Ser um or PlasmaOrdered By: Cassandra Mixon on 07-11-2023 Protein [Mass/Vol] 7.2 g/dL 6.4-8.9 [facility] RBC Auto (Bld) [#/Vol]Ordere d By: Cassandra Mixon on 07-11-2023 RBC (Bld) [#/Vol] 4.84 10*6/uL 3.60-5.00 [facility] Serum or plasma albumin/glob ulin mass ratioOrdered By: Cassandra Mixon on 07-11-2023 Albumin/Globulin [Mass ratio] 1.5 {ratio} [facility] Serum or plasma anion gap de terminationOrdered By: Cassandra Mixon on 07-11-2023 Anion gap [Moles/Vol] 10.6 mmol/L 6.0-15.0 [facility] Sodium [Moles/volume] in Ser um or PlasmaOrdered By: Cassandra Mixon on 07-11-2023 Sodium [Moles/Vol] 139 mmol/L 136-145 [facility] Urea nitrogen [Mass/volume] in Serum or PlasmaOrdered By: Cassandra Mixon on 07-11-2023 Urea nitrogen [Mass/Vol] 8 mg/dL 7-25 [facility] WBC Auto (Bld) [#/Vol]Ordere d By: Cassandra Mixon on 07-11-2023 WBC (Bld) [#/Vol] 9.8 10*3/uL 3.8-11.6 [facility] PAP ACOG PANEL 2: 30 to 65on 09-24-2022 . . Normal [facility] Comment on above: Result Comment: Perf ormed at: BA Performed By: #### [id number] #### [facility] [address] [address] [address] Yamilka Woodson Age Gdln ACOG Testing 30-65 Normal [facility] Comment on above: Performed By: #### [id number] #### [facility] [address] [address] [address] Yamilka Woodson DIAGNOSIS: Comment Normal [facility] Comment on above: Result Comment: NEGA TIVE FOR INTRAEPITHELIAL LESION OR MALIGNANCY. Performed at: BA Performed By: #### [id number] #### [facility] [address] [address] [address] Yamilka Woodson HPV Aptima Negative Normal Negative [facility] Comment on above: Result Comment: This nucleic acid amplification test detects fourteen high-risk HPV types (16,18,31,33,35,39,45,51,52,56,58,59,66,68) without differentiation. Performed at: =G Performed By: #### [id number] #### [facility] [address] [address] [address] Yamilka Woodson HPV Genotype Reflex Comment Normal [facility] Comment on above: Result Comment: Crit eria not met, HPV Genotype not performed. Performed at: BA Performed By: #### [id number] #### [facility] [address] [address] [address] Yamilka Woodson Methodology: Comment Normal [facility] Comment on above: Result Comment: This liquid based ThinPrep(R) pap test was screened with the use of an image guided system. Performed at: WB Performed By: #### [id number] #### [facility] [address] [place] [address] Dr. Yamilka Woodson Note: Comment Normal [facility] Comment on above: Result [...] Performed at: WB Performed By: #### [id number] #### [facility] [address] [address] [address] Yamilka Woodson Performed by: Comment Normal [facility] Comment on above: Result Comment: Yfn Watson, Fox Farmer (ASCP) Performed at: BA Performed By: #### 4 [id number] #### [facility] [address] [place] [address] Dr. Yamilka Woodson Specimen adequacy: Comment Normal [facility] Comment on above: Result Comment: Sati sfactory for evaluation. No endocervical component is identified. Performed at: BA Performed By: #### 4 [id number] #### [facility] [address] [place] [address] Dr. Yamilka Woodson MRI Foot w/o Righton [...] by Calvin Wasserman on 06/19/2022 1321 Normal [facility] Q - CBC (H/H,RBC,INDICES,WBC ,PLT)on 03-24-2022 Erythrocyte distribution width (RBC) [Ratio] 13.2 % Normal 11.0-15.0 [facility] Specialist Comment on above: Order Comment: [facility] Testing performed at: [employer] [facility], [address] [place] [address], [address] [place] [address], [address], [place] Supervisor: Aaron Mendiola MD [facility] Collection Date/Time: [facility] Results Received Date/Time: [facility] Reported Date/Time: FASTING: NO Performed By: #### 1 759, [id number] #### [facility] [address] [place] [address] Hematocrit (Bld) [Volume fraction] 38.6 % Normal 35.0-45.0 [facility] Comment on above: Order Comment: [facility] performed at: [employer] [facility], [address] [place] [address], [address] [place] [address], [phone], [place] Supervisor: Aaron Mendiola MD [facility] Collection Date/Time: [id number] [facility] Results Received Date/Time: [facility] Reported Date/Time: FASTING: NO Performed By: #### 1 759, [id number] #### [facility] [address] [place] [address] Hemoglobin (Bld) [Mass/Vol] 13.5 g/dL Normal 11.7-15.5 [facility] Specialist Comment on above: Order Comment: [facility] performed at: [employer] [facility], [address] [place] [address], [address] [place] [address], [address] [place] [address], [place] Supervisor: Aaron Mendiola MD [facility] Collection Date/Time: [facility] Results Received Date/Time: [facility] Reported Date/Time: FASTING: NO Performed By: #### 1 759, [id number] #### [facility] [address] [place] [address] MCH (RBC) [Entitic mass] 29.0 pg Normal 27.0-33.0 [facility] Specialist Comment on above: Order Comment: [facility] performed at: [employer] [facility], [address] [place] [address], [address] [place] [address], [address] [place] [address], [place] Supervisor: Aaron Mendiola MD [facility] Collection Date/Time: [facility] Results Received Date/Time: [facility] Reported Date/Time: FASTING: NO Performed By: #### 1 759, [id number] #### [facility] [address] [place] [address] MCHC (RBC) [Mass/Vol] 35.0 g/dL Normal 32.0-36.0 [facility] Mechanical Technologist Comment on above: Order Comment: [facility] performed at: [employer] [facility], [address] [place] [address], [address] [place] [address], [phone], [place] Supervisor: Aaron Mendiola MD [facility] Date/Time: [facility] Results Received Date/Time: [facility] Reported Date/Time: FASTING: NO Performed By: #### 1 759, [id number] #### [facility] Default [address] [place] [address] MCV (RBC) [Entitic vol] 83.0 fL Normal 80.0-100.0 [facility] Mechanical Technologist Comment on above: Order Comment: [facility] performed at: [place] [employer] [facility], [address] [place] [address], [address] [place] [address], [address] [place] [address], [employer] Supervisor: Aaron Mendiola MD [facility] Collection Date/Time: [facility] Results Received Date/Time: [facility] Reported Date/Time: FASTING: NO Performed By: #### 1 759, [id number] #### [facility] [address] [place] [address] Platelet mean volume (Bld) [Entitic vol] 10.3 fL Normal 7.5-12.5 [facility] Comment on above: Order Comment: [facility] performed at: [employer] [facility], [address] [place] [address], [address] [place] [address], [employer] Supervisor: Aaron Mendiola MD [facility] Collection Date/Time: [facility] Results Received Date/Time: [facility] Reported Date/Time: FASTING: NO Performed By: #### 1 759, [id number] #### [facility] [address] [place] [address] Platelets (Bld) [#/Vol] 348 10*3/uL Normal 140-400 [facility] Comment on above: Order Comment: [facility] performed at: [place] [employer] [facility], [address] [place] [address], [address] [place] [address], [address] [place] [address], [employer] Supervisor: Aaron Mendiola MD [facility] Collection Date/Time: [facility] Results Received Date/Time: [facility] Reported Date/Time: FASTING: NO Performed By: #### 1 759, [id number] #### [facility] [address] [place] [address] RBC (Bld) [#/Vol] 4.65 10*6/uL Normal 3.80-5.10 [facility] Comment on above: Order Comment: [facility] performed at: [place] [employer] [facility], [address] [place] [address], [address] [place], [place] [address] [place] [address], [place] Supervisor: Aaron Mendiola MD [facility] Collection Date/Time: [facility] Results Received Date/Time: [facility] Reported Date/Time: FASTING: NO Performed By: #### 1 759, [id number] #### [facility] [address] [place] [address] WBC (Bld) [#/Vol] 10.2 10*3/uL Normal 3.8-10.8 [facility] Mechanical Technologist Comment on above: Order Comment: [facility] performed at: [place] [employer] [facility], [address] [facility], [address] [place] [address], [address] [place] [address], [employer] Supervisor: Aaron Mendiola MD [facility] Collection Date/Time: [facility] Results Received Date/Time: [facility] Reported Date/Time: FASTING: NO Performed By: #### 1 759, [id number] #### [facility] Default [address] [place] [address] Q - COMPREHENSIVE METABOLIC PANEL W/EGFRon 03-24-2022 Albumin [Mass/Vol] 4.2 g/dL Normal 3.6-5.1 [facility] Specialist Comment on above: Order Comment: [facility] performed at: [place] [employer] [facility], [address] , [address] [place] [address], [address] [place] [address], [place] Supervisor: Aaron Mendiola MDQuest Collection Date/Time: [id number] Results Received Date/Time: [id number] Reported Date/Time: FASTING: NO Performed By: #### 1 759, [id number] ####[facility] [address] [place] [address] Albumin/Globulin [Mass ratio] 1.7 {ratio} Normal 1.0-2.5 [facility] Mechanical Technologist Comment on above: Order Comment: [facility] performed at: [place] [employer] [facility], [address] , [address] [place] [address], [address] [place] [address], [employer] Supervisor: Aaron Dixon Collection Date/Time: [id number] Results Received Date/Time: [id number] Reported Date/Time: FASTING: NO Performed By: #### 1 759, [id number] ####[facility] [address] [place] [address] ALP [Catalytic activity/Vol] 72 U/L Normal 31-125 [facility] Mechanical Technologist Comment on above: Order Comment: [facility] performed at: [place] [employer] [facility], [address] [place] [address], [address] [place] [address], [phone], [employer] Supervisor: Aaron Dixon Collection Date/Time: [id number] Results Received Date/Time: [id number] Reported Date/Time: FASTING: NO Performed By: #### 1 759, [id number] ####[facility] [address] [place] [address] ALT [Catalytic activity/Vol] 14 U/L Normal 6-29 [facility] Mechanical Technologist Comment on above: Order Comment: [facility] performed at: [employer] [facility], [address] [place] [address], [address] [place] [address], [phone], [place] Supervisor: Aaron Dixon Collection Date/Time: [id number] Results Received Date/Time: [id number] Reported Date/Time: FASTING: NO Performed By: #### 1 759, [id number] ####[facility] [address] [place] [address] AST [Catalytic activity/Vol] 13 U/L Normal 10-30 [facility] Mechanical Technologist Comment on above: Order Comment: [facility] performed at: [employer] [facility], [address] [place] [address], [address] [place] [address], [address], [place] Supervisor: Aaron Dixon Collection Date/Time: [id number] Results Received Date/Time: [id number] Reported Date/Time: FASTING: NO Performed By: #### 1 759, [id number] ####[facility] [address] [place] [address] Bilirubin [Mass/Vol] 0.7 mg/dL Normal 0.2-1.2 [facility] Specialist Comment on above: Order Comment: [facility] performed at: [place] [employer] [facility], [address] [facility], [address] [place] [address], [address] [place] [address], [employer] Supervisor: Aaron Dixon Collection Date/Time: [id number] Results Received Date/Time: [id number] Reported Date/Time: FASTING: NO Performed By: #### 1 759, [id number] ####[facility] [address] [place] [address] Calcium [Mass/Vol] 9.3 mg/dL Normal 8.6-10.2 [facility] Specialist Comment on above: Order Comment: [facility] performed at: [employer] [facility], [address] [facility], [address] [place] [address], [address], [place] Supervisor: Aaron Dixon Collection Date/Time: [id number] Results Received Date/Time: [id number] Reported Date/Time: FASTING: NO Performed By: #### 1 759, [id number] ####[facility] [address] [place] [address] Chloride [Moles/Vol] 104 mmol/L Normal 98-110 [facility] Specialist Comment on above: Order Comment: [facility] performed at: [employer] [facility], [address] [facility], [address] [place] [address], [address] [place] [address], [place] Supervisor: Aaron Dixon Collection Date/Time: [id number] Results Received Date/Time: [id number] Reported Date/Time: FASTING: NO Performed By: #### 1 759, [id number] ####[facility] [address] [place] [address] CO2 [Moles/Vol] 25 mmol/L Normal 20-32 [facility] Mechanical Technologist Comment on above: Order Comment: [facility] performed at: [place] [employer] [facility], [address] [place] [address], [address] [place] [address], [address] [place] [address], [place] Supervisor: Aaron Dixon Collection Date/Time: [id number] Results Received Date/Time: [id number] Reported Date/Time: FASTING: NO Performed By: #### 1 759, [id number] ####[facility] [address] [place] [address] Creatinine [Mass/Vol] 0.47 mg/dL Low 0.50-1.10 [facility] Mechanical Technologist Comment on above: Order Comment: [facility] performed at: [place] [employer] [facility], [address] [place] [address], [address] [place] [address], [address] [place] [address], [place] Supervisor: Aaron Dixon Collection Date/Time: [id number] Results Received Date/Time: [id number] Reported Date/Time: FASTING: NO Performed By: #### 1 759, [id number] ####[facility] [address] [place] [address] eGFRAA ([facility]) 142 mL/min/1.73m2 Normal > OR = 60 Nor [facility] Mechanical Technologist Comment on above: Order Comment: [facility] performed at: [employer] [facility], [address] [place] [address], [address] [place] [address], [address] [place] [address], [employer] Supervisor: Aaron Dixon Collection Date/Time: [id number] Results Received Date/Time: [id number] Reported Date/Time: FASTING: NO Performed By: #### 1 759, [id number] ####[facility] [address] [place] [address] eGFRNAA ([facility]) 123 mL/min/1.73m2 Normal > OR = 60 [facility] Comment on above: Order Comment: [facility] performed at: [place] [employer] [facility], [address] [place] [address], [address] [place] [address], [address] [place] [address], [employer] Supervisor: Aaron Dixon Collection Date/Time: [id number] Results Received Date/Time: [id number] Reported Date/Time: FASTING: NO Performed By: #### 1 759, [id number] ####[facility] [address] [place] [address] Globulin (S) [Mass/Vol] 2.5 g/dL Normal 1.9-3.7 [facility] [place] Mechanical Technologist Comment on above: Order Comment: [facility] performed at: [place] [employer] [facility], [address] [place] [address], [address] [place] [address], [address] [place] [address], [employer] Supervisor: Aaron Dixon Collection Date/Time: [id number] Results Received Date/Time: [id number] Reported Date/Time: FASTING: NO Performed By: #### 1 759, [id number] ####[facility] [address] [place] [address] Glucose [Mass/Vol] 75 mg/dL Normal 65-139 [facility] Mechanical Technologist Comment on above: Order Comment: [facility] performed at: [place] [employer] [facility], [address] [place] [address], [address] [place] [address], [address] [place] [address], [employer] Supervisor: Aaron Dixon Collection Date/Time: [id number] Results Received Date/Time: [id number] Reported Date/Time: FASTING: NO Result Comment: Non-fasting reference interval Performed By: #### 1 759, [id number] ####[facility] [address] [place] [address] Potassium [Moles/Vol] 3.8 mmol/L Normal 3.5-5.3 Isacc tam [place] Mechanical Technologist Comment on above: Order Comment: [facility] performed at: [place] [employer] [facility], [address] [place] [address], [address] [place] [address], [address] [place] [address], [employer] Supervisor: Aaron Dixon Collection Date/Time: [id number] Results Received Date/Time: [id number] Reported Date/Time: FASTING: NO Performed By: #### 1 759, [id number] ####[facility] [address] [place] [address] Protein [Mass/Vol] 6.7 g/dL Normal 6.1-8.1 Jennifer farfan [place] Mechanical Technologist Comment on above: Order Comment: [facility] performed at: [place] [employer] [facility], [address] [place] [address], [address] [place] [address], [address], [place] Supervisor: Aaron Dixon Collection Date/Time: [id number] Results Received Date/Time: [id number] Reported Date/Time: FASTING: NO Performed By: #### 1 759, [id number] ####[facility] [address] [place] [address] Sodium [Moles/Vol] 138 mmol/L Normal 135-146 Jennifer farfan [place] Mechanical Technologist Comment on above: Order Comment: [facility] performed at: [place] [employer] [facility], [address] [place] [address], [address] [place] [address], [address], [place] Supervisor: Aaron Dixon Collection Date/Time: [id number] Results Received Date/Time: [id number] Reported Date/Time: FASTING: NO Performed By: #### 1 759, [id number] ####[facility] [address] [place] [address] Urea nitrogen [Mass/Vol] 7 mg/dL Normal 7-25 [facility] Mechanical Technologist Comment on above: Order Comment: [facility] performed at: [place] [employer] [facility], [address] [place] [address], [address] [place] [address], [address], [employer] Supervisor: Aaron Dixon Collection Date/Time: [id number] Results Received Date/Time: [id number] Reported Date/Time: FASTING: NO Performed By: #### 1 759, 70477H ####[facility] [address] [place] [address] Urea nitrogen/Creatinine [Mass ratio] 15 mg/mg Normal 6-22 [facility] Mechanical Technologist Comment on above: Order Comment: [facility] performed at: [employer] [employer] [facility], [address] [facility], [address] [place], [address], [place] Supervisor: Aaron Dixon Collection Date/Time: [id number] Results Received Date/Time: [id number] Reported Date/Time: FASTING: NO Performed By: #### 1 759, [id number] ####[facility] [address] [place] [address] Vitamin D 25-OHon 02-03-2022 VIT D 25 OH 33 ng/ml Normal >29 [facility] Mechanical Technologist Comment on above: Result Comment: Sheri min D Status Deficiency <20 ng/mL Insufficiency 20-29 ng/mL Optimal 30-100 ng/mL Possible Toxicity >=150 ng/mL Performed By: #### V ITD #### [facility] [address] [place], [place] [id number] XR foot RT min 3V*on 022 XR foot RT min 3V* [facility] [employer] Other XR foot RT min 3V* [facility] [employer] Other XR foot RT min 3V* [address] [place] [address] [employer] Other XR foot RT min 3V* [place] [address] [employer] [facility] [employer] Other XR foot RT min 3V* XRay Report [employer] Other XR foot RT min 3V* Signed [employer] Other XR foot RT min 3V* Patient: Georgette Wu MR#: [id number] [employer] Other XR foot RT min 3V* 5074 [employer] Other XR foot RT min 3V* : 1980 Acct:[id number] [employer] Other XR foot RT min 3V* Age/Sex: 41 / F ADM Date: 01/14/22 [employer] Other XR foot RT min 3V* Loc: XDUCLY Room: Type: [facility] [employer] Other XR foot RT min 3V* Attending Dr: Ashley Mayer [facility] [employer] Other XR foot RT min 3V* Ordering Provider: Ashley Mayer APRN [employer] Other XR foot RT min 3V* Date of Service: 01/14/22 [employer] Other XR foot RT min 3V* XR/XR foot RT min 3V*: RIGHT FOOT INJURY [employer] Other XR foot RT min 3V* Copies to: Ashley Mayer APRN [employer] Other XR foot RT min 3V* Right foot 01/14/2022. [employer] Other XR foot RT min 3V* CLINICAL DATA: Right foot pain after injury. [employer] Other XR foot RT min 3V* FINDINGS: 3 views of the right foot were obtained. [employer] Other XR foot RT min 3V* No acute fracture or dislocation is identified. There is posterior and plantar calcaneal spurring. [employer] Other XR foot RT min 3V* No other bony abnormality is seen. No significant soft tissue swelling is noted. [employer] Other XR foot RT min 3V* XR/XR foot RT min 3V* [employer] Other XR foot RT min 3V* IMPRESSION: Calcaneal spurring. No acute bony abnormality. [employer] Other XR foot RT min 3V* Impression dictated by: Sergo Bautista Jr., M.D.01/14/2022 2:45 PM [employer] Other XR foot RT min 3V* Dictation Location: [place] [address] [employer] Other XR foot RT min 3V* Transcribed By: NATASHA 01/14/22 1445 [employer] Other XR foot RT min 3V* Dictated By: Sergo Bautista Jr, MD 01/14/22 1439 [employer] Other XR foot RT min 3V* Signed By: [employer] Other XR foot RT min 3V* 01/14/22 1445 [facility] [employer] Other XR Abdomen 2 Viewson 022 XR [...] by Benjamin Cain on 12/21/[address] [facility] Mechanical Technologist Complete Blood Counton 11-28 Erythrocyte distribution width (RBC) [Ratio] 12.9 % Normal 11.0-15.0 [facility] Mechanical Technologist Comment on above: Performed By: #### L IPD, CBC, CMP, VITD #### [facility] [address] [place], [place] [id number] Hematocrit (Bld) [Volume fraction] 38.3 % Normal 35.0-47.0 [facility] Specialist Comment on above: Performed By: #### L IPD, CBC, CMP, VITD #### [facility] [address], [place] [id number] Hemoglobin (Bld) [Mass/Vol] 12.8 g/dL Normal 11.6-15.5 [facility] Specialist Comment on above: Performed By: #### L IPD, CBC, CMP, VITD #### [facility] [address], [place] [id number] MCH (RBC) [Entitic mass] 28.2 pg Normal 27.0-33.0 [facility] Specialist Comment on above: Performed By: #### L IPD, CBC, CMP, VITD #### [facility] [address], [place] [id number] MCHC (RBC) [Mass/Vol] 33.4 g/dL Normal 32.0-36.0 [facility] Specialist Comment on above: Performed By: #### L IPD, CBC, CMP, VITD #### [facility] [address], [place] [id number] MCV (RBC) [Entitic vol] 84 fL Normal 80-100 [facility] Specialist Comment on above: Performed By: #### L IPD, CBC, CMP, VITD #### [facility] [address], [place] [id number] Platelet mean volume (Bld) [Entitic vol] 10.30 fL Normal 7.50-12.50 [facility] Specialist Comment on above: Performed By: #### L IPD, CBC, CMP, VITD #### [facility] [address], [place] [id number] Platelets (Bld) [#/Vol] 302 10*3/uL Normal 140-400 [facility] Specialist Comment on above: Performed By: #### L IPD, CBC, CMP, VITD #### [facility] [address], [place] [id number] RBC (Bld) [#/Vol] 4.54 10*6/uL Normal 3.90-5.20 [facility] Specialist Comment on above: Performed By: #### L IPD, CBC, CMP, VITD #### [facility] [address], [place] [id number] RDW-SD 39.8 fL Normal 37.0-50.0 [facility] Comment on above: Performed By: #### L IPD, CBC, CMP, VITD #### [facility] [address], [place] [id number] WBC (Bld) [#/Vol] 10.5 10*3/uL Normal 3.8-11.0 [facility] Comment on above: Performed By: #### L IPD, CBC, CMP, VITD #### [facility] [address], [place] [id number] Comprehensive Metabolic Pane pillo 11-28-2021 Albumin [Mass/Vol] 4.3 g/dL Normal 3.6-5.1 [facility] Comment on above: Performed By: #### L IPD, CBC, CMP, VITD #### [facility] [address] [place], [place] [id number] Albumin/Globulin [Mass ratio] 2.0 {ratio} Normal 1.0-2.5 [facility] Comment on above: Performed By: #### L IPD, CBC, CMP, VITD #### [facility] [address], [place] [id number] ALP [Catalytic activity/Vol] 97 U/L Normal 35-119 [facility] Specialist Comment on above: Performed By: #### L IPD, CBC, CMP, VITD #### [facility] [address], [place] [id number] ALT [Catalytic activity/Vol] 9 U/L Normal 6-33 [facility] Comment on above: Result Comment: 10/19 Female reference range changed. Performed By: #### L IPD, CBC, CMP, VITD #### [facility] [address], [place] [id number] Anion gap [Moles/Vol] 17 mmol/L Normal 12-20 [facility] Comment on above: Result Comment: Effe ctive 11/24/2019 reference range changed. Performed By: #### L IPD, CBC, CMP, VITD #### [facility] [address], [place] [id number] AST [Catalytic activity/Vol] 11 U/L Normal 9-34 [facility] Comment on above: Performed By: #### L IPD, CBC, CMP, VITD #### [facility] [address], [place] [id number] Bilirubin [Mass/Vol] 0.96 mg/dL Normal 0.30-1.20 [facility] Comment on above: Performed By: #### L IPD, CBC, CMP, VITD #### [facility] [address], [place] [id number] BUN/CREA 21 Ratio Normal 6-22 [facility] Comment on above: Performed By: #### L IPD, CBC, CMP, VITD #### [facility] [address], [place] [id number] Calcium [Mass/Vol] 9.1 mg/dL Normal 8.6-10.2 [facility] Comment on above: Performed By: #### L IPD, CBC, CMP, VITD #### [facility] [address], [place] [id number] Chloride [Moles/Vol] 104 mmol/L Normal 98-107 [facility] Comment on above: Performed By: #### L IPD, CBC, CMP, VITD #### [facility] [address], [place] [id number] CO2 [Moles/Vol] 23 mmol/L Normal 20-31 [facility] Comment on above: Performed By: #### L IPD, CBC, CMP, VITD #### [facility] [address], [place] [id number] Creatinine [Mass/Vol] 0.4 mg/dL Low 0.6-1.4 [facility] Comment on above: Performed By: #### L IPD, CBC, CMP, VITD #### [facility] [address], [place] [id number] eGFRAA 234 mL/min/1.73m2 Normal >60 [facility] Comment on above: Performed By: #### L IPD, CBC, CMP, VITD #### [facility] [address], [place] [id number] eGFRNAA 193 mL/min/1.73m2 Normal >60 [facility] Mechanical Technologist Comment on above: Performed By: #### L IPD, CBC, CMP, VITD #### [facility] [address], [place] [id number] Globulin (S) [Mass/Vol] 2.2 g/dL Normal 1.9-3.7 [facility] Specialist Comment on above: Performed By: #### L IPD, CBC, CMP, VITD #### [facility] [address], [place] [id number] Glucose [Mass/Vol] 78 mg/dL Normal 65-99 Jennifer farfan [place] Mechanical Technologist Comment on above: Result Comment: For FASTING Glucose --- ADA reference ranges: Normal 65-99 mg/dl Prediabetes 100-125 Diabetes >/= 126 Performed By: #### L IPD, CBC, CMP, VITD #### [facility] [address], [place] [id number] Potassium [Moles/Vol] 3.7 mmol/L Normal 3.5-5.5 [facility] Specialist Comment on above: Performed By: #### L IPD, CBC, CMP, VITD #### [facility] [address], [place] [id number] Protein [Mass/Vol] 6.5 g/dL Normal 6.1-8.1 Jennifer farfan [place] Mechanical Technologist Comment on above: Performed By: #### L IPD, CBC, CMP, VITD #### [facility] [address] [place], [place] [id number] Sodium [Moles/Vol] 139 mmol/L Normal 135-146 Jennifer farfan [place] Mechanical Technologist Comment on above: Performed By: #### L IPD, CBC, CMP, VITD #### [facility] [address], [place] [id number] Urea nitrogen [Mass/Vol] 8 mg/dL Normal 7-25 [facility] Specialist Comment on above: Performed By: #### L IPD, CBC, CMP, VITD #### [facility] [address], [place] [id number] Lipid Panelon 11-28-2021 Cholesterol [Mass/Vol] 196 mg/dL Normal 125-200 [facility] Comment on above: Result Comment: Low risk < 200mg/dL Borderline risk 201-239 mg/dl High risk > or equal to 240 Performed By: #### L IPD, CBC, CMP, VITD #### [facility] [address] [place], [place] [id number] Cholesterol in HDL [Mass/Vol] 45 mg/dL Normal >40 [facility] Specialist Comment on above: Result Comment: High Cardiovascular Risk HDL <40 mg/dL Low Cardiovascular Risk HDL > or equal to 60 mg/dl Performed By: #### L IPD, CBC, CMP, VITD #### [facility] [address] [place], [place] [id number] Cholesterol in LDL [Mass/Vol] 127 mg/dL Normal [facility] Comment on above: Result Comment: LDL ATP III CLASSIFICATION LDL less than 100 mg/dl Optimal LDL 100-129 mg/dl Near or above optimal LDL 130-159 Borderline high LDL 160-189 High LDL greater than 189 mg/dl Very High Performed By: #### L IPD, CBC, CMP, VITD #### [facility] [address] [place], [place] [id number] Cholesterol in VLDL [Mass/Vol] 24 mg/dL Normal [facility] Comment on above: Performed By: #### L IPD, CBC, CMP, VITD #### [facility] [address] [place], [place] [id number] Cholesterol.total/Lavern sterol in HDL [Mass ratio] 4 {ratio} Normal [facility] Comment on above: Performed By: #### L IPD, CBC, CMP, VITD #### [facility] [address] [place], [place] [id number] Triglyceride [Mass/Vol] 120 mg/dL Normal 30-150 [facility] Comment on above: Result Comment: TRIG ATPIII CLASSIFICATIONS TRIG less than 150 mg/dl Normal TRIG 150-199 mg/dl Borderline High TRIG 200-500 mg/dl High TRIG greather than 500 mg/dl Very High Performed By: #### L IPD, CBC, CMP, VITD #### [facility] [address] [place], [place] [id number] Vitamin D 25-OHon 11-28-2021 VIT D 25 OH 27 ng/ml Low >29 [facility] Mechanical Technologist Comment on above: Result Comment: Sheri min D Status Deficiency <20 ng/mL Insufficiency 20-29 ng/mL Optimal 30-100 ng/mL Possible Toxicity >=150 ng/mL Performed By: #### L IPD, CBC, CMP, VITD #### [facility] [address], [place] [id number] XR Abdomen Series w/PA Chest on 11-28-2021 [...] by Benjamin Cain on 11/28/[address] [facility] Mechanical Technologist Vital Signs Date Time Vital Sign Value Performing Clinician Facility 11-26-2024 09:40-0500 Body height 165.1 cm [facility] 11-26-2024 09:40-0500 Body mass index (BMI) [Ratio] 36.6 kg/m2 [facility] 11-26-2024 09:40-0500 Body weight 99.79 kg [facility] 11-25-2024 13:16-0500 Diastolic blood pressure 87 mm[Hg] Ale Hampton APRN-BI LEAD Work Phone: [facility] 11-25-2024 13:16-0500 Heart rate 86 /min Ale Hampton APRN-BI LEAD Work Phone: [facility] 11-25-2024 13:16-0500 Respiratory rate 20 /min Ale Hampton DESKIDDING MACHINE OPERATOR-BI LEAD Work Phone: [facility] 01-07-2025 13:16-0500 Systolic blood pressure 138 mm[Hg] Ale Hampton DESKIDDING MACHINE OPERATOR-BI LEAD Work Phone: [facility] 10-07-2024 09:27-0500 Body height 162.6 cm Ale Hampton DESKIDDING MACHINE OPERATOR-BI LEAD Work Phone: [facility] 10-07-2024 09:27-0500 Body mass index (BMI) [Ratio] 38.66 kg/m2 Ale Hampton DESKIDDING MACHINE OPERATOR-BI LEAD Work Phone: [facility] 10-07-2024 09:27-0500 Body weight 102.15 kg Ale Hampton DESKIDDING MACHINE OPERATOR-BI LEAD Work Phone: [facility] 10-07-2024 09:27-0500 Diastolic blood pressure 98 mm[Hg] Ale Hampton DESKIDDING MACHINE OPERATOR-BI LEAD Work Phone: [facility] 10-07-2024 09:27-0500 Heart rate 70 /min Ale Hampton DESKIDDING MACHINE OPERATOR-BI LEAD Work Phone: [facility] 10-07-2024 09:27-0500 Respiratory rate 18 /min Ale Hampton DESKIDDING MACHINE OPERATOR-BI LEAD Work Phone: [facility] 10-07-2024 09:27-0500 SaO2% (BldA) [Mass fraction] 95 % Ale Hampton DESKIDDING MACHINE OPERATOR-BI LEAD Work Phone: [facility] 10-07-2024 09:27-0500 Systolic blood pressure 139 mm[Hg] Ale Hampton DESKIDDING MACHINE OPERATOR-BI LEAD Work Phone: [facility] 09-29-2024 14:14-0500 Body mass index (BMI) [Ratio] 37.96 kg/m2 Dominik Mau DO Work Phone: [facility] 09-29-2024 14:14-0500 Body weight 100.3 kg Dominik Mau DO Work Phone: [facility] 09-29-2024 14:14-0500 Diastolic blood pressure 70 mm[Hg] Dominik Mau DO Work Phone: [facility] 09-29-2024 14:14-0500 Systolic blood pressure 120 mm[Hg] Dominik Mau DO Work Phone: [facility] 09-24-2024 14:59-0500 Body mass index (BMI) [Ratio] 38.07 kg/m2 Ashley Pump EXECUTIVE LEGAL SECRETARY Work Phone: [facility] 09-24-2024 14:59-0500 Body temperature 98.01 [degF] Ashley Pump EXECUTIVE LEGAL SECRETARY Work Phone: [facility] 09-24-2024 14:59-0500 Body weight 100.61 kg Ashley Pump EXECUTIVE LEGAL SECRETARY Work Phone: [facility] 09-24-2024 14:59-0500 Diastolic blood pressure 82 mm[Hg] Ashley Pump EXECUTIVE LEGAL SECRETARY Work Phone: [facility] 09-24-2024 14:59-0500 Heart rate 84 /min Ashley Pump EXECUTIVE LEGAL SECRETARY Work Phone: [facility] 09-24-2024 14:59-0500 Systolic blood pressure 128 mm[Hg] Ashley Pump EXECUTIVE LEGAL SECRETARY Work Phone: [facility] 09-03-2024 08:58-0400 Diastolic blood pressure 93 mm[Hg] Almaz Verhoff PA-C Work Phone: [facility] 09-03-2024 08:58-0400 Heart rate 76 /min Almaz Verhoff PA-C Work Phone: [facility] 09-03-2024 08:58-0400 Respiratory rate 20 /min Almaz Verhoff PA-C Work Phone: [facility] 09-03-2024 08:58-0400 Systolic blood pressure 142 mm[Hg] Almaz Verhoff PA-C Work Phone: [facility] 08-27-2024 09:34-0400 Body mass index (BMI) [Ratio] 37.97 kg/m2 Ashley Pump EXECUTIVE LEGAL SECRETARY Work Phone: [facility] 08-27-2024 09:34-0400 Body weight 100.34 kg Ashley Pump EXECUTIVE LEGAL SECRETARY Work Phone: [facility] 08-27-2024 09:34-0400 Diastolic blood pressure 84 mm[Hg] Ashley Pump EXECUTIVE LEGAL SECRETARY Work Phone: [facility] 08-27-2024 09:34-0400 Heart rate 80 /min Ashley Pump EXECUTIVE LEGAL SECRETARY Work Phone: [facility] 08-27-2024 09:34-0400 Systolic blood pressure 130 mm[Hg] Ashley Pump EXECUTIVE LEGAL SECRETARY Work Phone: [facility] 07-28-2024 09:04-0400 Body height 165.1 cm [facility] 07-28-2024 09:04-0400 Body mass index (BMI) [Ratio] 35.6 kg/m2 [facility] 07-28-2024 09:04-0400 Body weight 97 kg [facility] 07-15-2024 09:01-0400 Body mass index (BMI) [Ratio] 37.59 kg/m2 Dominik Mau DO Work Phone: [facility] 07-15-2024 09:01-0400 Body weight 99.34 kg Dominik Mau DO Work Phone: [facility] 07-15-2024 09:01-0400 Diastolic blood pressure 74 mm[Hg] Dominik Mau DO Work Phone: [facility] 07-15-2024 09:01-0400 Systolic blood pressure 122 mm[Hg] Dominik Mau DO Work Phone: [facility] 07-11-2024 10:08-0400 Body mass index (BMI) [Ratio] 39.14 kg/m2 Rianna Kasper EXECUTIVE LEGAL SECRETARY Work Phone: [facility] 07-11-2024 10:08-0400 Body weight 103.42 kg Rianna Kasper EXECUTIVE LEGAL SECRETARY Work Phone: [facility] 07-11-2024 10:08-0400 Diastolic blood pressure 82 mm[Hg] Rianna Majo EXECUTIVE LEGAL SECRETARY Work Phone: [facility] 07-11-2024 10:08-0400 Heart rate 76 /min Rianna Majo EXECUTIVE LEGAL SECRETARY Work Phone: [facility] 07-11-2024 10:08-0400 Systolic blood pressure 126 mm[Hg] Rianna Majo EXECUTIVE LEGAL SECRETARY Work Phone: [facility] 03-05-2024 10:15-0400 Body height 162.56 cm [facility] 03-05-2024 10:15-0400 Body mass index (BMI) [Ratio] 36.3 kg/m2 [facility] 03-05-2024 10:15-0400 Body weight 96.16 kg [facility] 12-25-2023 13:34-0500 Body mass index (BMI) [Ratio] 36.87 kg/m2 Rianna Majo EXECUTIVE LEGAL SECRETARY Work Phone: [facility] 12-25-2023 13:34-0500 Body weight 97.43 kg Rianna Majo EXECUTIVE LEGAL SECRETARY Work Phone: [facility] 12-25-2023 13:34-0500 Diastolic blood pressure 80 mm[Hg] Rianna Majo EXECUTIVE LEGAL SECRETARY Work Phone: [facility] 12-25-2023 13:34-0500 Heart rate 76 /min Rianna Majo EXECUTIVE LEGAL SECRETARY Work Phone: [facility] 12-25-2023 13:34-0500 Systolic blood pressure 110 mm[Hg] Rianna Majo EXECUTIVE LEGAL SECRETARY Work Phone: [facility] 12-05-2023 10:30-0500 Body height 162.56 cm Yannick Rosales Other [employer] Other 12-05-2023 10:30-0500 Body mass index (BMI) [Ratio] 36.04 kg/m2 Yannick Rosales Other [employer] Other 12-05-2023 10:30-0500 Body weight 95.26 kg Yannick Rosales Other [employer] Other 03-28-2022 14:30-0400 Body height 162.56 cm Yannick Rosales Other [employer] Other 03-28-2022 14:30-0400 Body mass index (BMI) [Ratio] 37.76 kg/m2 Yannick Rosales Other [employer] Other 03-28-2022 14:30-0400 Body weight 99.79 kg Yannick Rosales Other [employer] Other 03-28-2022 14:30-0400 Diastolic blood pressure 83 mm[Hg] Yannick Rosales Other [employer] Other 03-28-2022 14:30-0400 Systolic blood pressure 126 mm[Hg] Yannick Rosales Other [employer] Other 02-08-2022 10:15-0400 Body height 162.56 cm Yannick Rosales Other [employer] Other 02-08-2022 10:15-0400 Body mass index (BMI) [Ratio] 37.76 kg/m2 Yannick Rosales Other [employer] Other 02-08-2022 10:15-0400 Body weight 99.79 kg Yannick Rosales Other [employer] Other 01-14-2022 15:05-0500 Body height 162.56 cm Ashley Mayer Other [employer] Other 01-14-2022 15:05-0500 Body mass index (BMI) [Ratio] 37.59 kg/m2 Ashley Mayer Other [employer] Other 01-14-2022 15:05-0500 Body weight 99.34 kg Ashley Mayer Other [employer] Other 01-14-2022 15:05-0500 Diastolic blood pressure 83 mm[Hg] Ashley Mayer Other [employer] Other 01-14-2022 15:05-0500 Systolic blood pressure 124 mm[Hg] Ashley Mayer Other [employer] Other Encounters Encounter Date Encounter Type Care Provider Facility Start: 11-26-2024 End: 11-26-2024 ambulatory [facility] Work Phone: Start: 11-26-2024 End: 11-26-2024 Patient encounter procedure [facility] Work Phone: Start: 11-25-2024 End: 11-25-2024 Office outpatient visit 25 minutes Ale Hampton DESKIDDING MACHINE OPERATOR-BI LEAD Work Phone: [facility] Comment on above: Lumbar spondylosis; Disorder of sacrum; Spinal stenosis of lumbar region with neurogenic claudication Start: 11-25-2024 End: 11-25-2024 ambulatory [facility] Start: 10-31-2024 End: 10-31-2024 [facility] Start: 10-23-2024 End: 10-23-2024 Telephone encounter Suzie HARRIS [facility] Start: 10-07-2024 End: 10-07-2024 Office outpatient visit 25 minutes Ale Hampton DESKIDDING MACHINE OPERATOR-BI LEAD Work Phone: [facility] Comment on above: 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); Chronic bilateral low back pain with bilateral sciatica Start: 10-07-2024 End: 10-07-2024 ambulatory [facility] Start: 10-03-2024 End: 10-03-2024 Orders Only Ashley Pump EXECUTIVE LEGAL SECRETARY Work Phone: [facility] Comment on above: Otalgia, left (Prima ry Dx); Bilateral tinnitus Start: 09-29-2024 End: 09-29-2024 Bamboo flowsheet Dominik Mau DO Work Phone: [facility] Start: 09-29-2024 End: 10-07-2024 Bamboo flowsheet Dominik Mau DO Work Phone: [facility] Start: 09-29-2024 End: 10-07-2024 Clinisync Result Encounter Dominik Mau DO Work Phone: [facility] Unsolicited Start: 09-29-2024 End: 09-29-2024 Patient encounter procedure Dominik Mau DO Work Phone: [facility] Work Phone: Start: 09-29-2024 End: 09-29-2024 Periodic preventive med est patient 40-64yrs Dominik Mau DO Work Phone: [facility] Comment on above: Well woman exam with routine gynecological exam; Breast cancer screening by mammogram; Hot flashes due to surgical menopause Start: 09-29-2024 End: 09-29-2024 ambulatory DOMINIK MAU Not Available Start: 09-26-2024 End: 09-28-2024 Refill Maddie Castañeda MD Work Phone: [facility] Comment on above: Irritable bowel synd norah with diarrhea (Primary Dx) Start: 09-24-2024 End: 09-24-2024 Office outpatient visit 15 minutes Ashley Pump EXECUTIVE LEGAL SECRETARY Work Phone: [facility] Comment on above: Non-recurrent acute suppurative otitis media of both ears without spontaneous rupture of tympanic membranes (Primary Dx); Tinnitus of left ear Start: 09-24-2024 End: 09-24-2024 ambulatory ASHLEY PUMP Not Available Start: 09-24-2024 End: 09-24-2024 Bamboo flowsheet Ashley Pump EXECUTIVE LEGAL SECRETARY Work Phone: [facility] Start: 09-24-2024 End: 09-24-2024 Bamboo flowsheet Ashley Pump EXECUTIVE LEGAL SECRETARY Work Phone: [facility] Start: 09-24-2024 ambulatory ALMAZ Barreto [facility] Start: 09-08-2024 End: 09-08-2024 Refill Rianna Kasper EXECUTIVE LEGAL SECRETARY Work Phone: [facility] Comment on [...] myelopathy Start: 09-04-2024 End: 09-04-2024 ambulatory HONEY DE LEON Not Available Start: 09-04-2024 End: 09-04-2024 Phys/qhp telephone evaluation 5-10 min Dominik Mau DO Work Phone: [facility] Comment on above: Hot flashes; Hormone imbalance; Asymptomatic menopausal state Start: 09-03-2024 ambulatory ALMAZ Barreto RASHARD [facility] Start: 09-03-2024 End: 09-03-2024 Office outpatient visit 25 minutes Almaz Wetzel PA-C Work Phone: [facility] Comment on above: Lumbar spondylosis ( Primary Dx); Disorder of sacrum; Spinal stenosis of lumbar region with neurogenic claudication Start: 09-03-2024 End: 09-03-2024 ambulatory ALMAZ Lilian [facility] Start: 09-02-2024 End: 09-02-2024 Orders Only Rianna Kasper APRN-BI LEAD Work Phone: [facility] Comment on above: Diarrhea, unspecifie d Start: 08-27-2024 End: 08-27-2024 Bamboo flowsheet Ashley Pump EXECUTIVE LEGAL SECRETARY Work Phone: [facility] Start: 08-27-2024 End: 08-27-2024 Bamboo flowsheet Ashley Pump EXECUTIVE LEGAL SECRETARY Work Phone: [facility] Start: 08-27-2024 End: 08-27-2024 Office outpatient visit 25 minutes Ashley Pump EXECUTIVE LEGAL SECRETARY Work Phone: [facility] Comment on [...] 08-20-2024 End: 08-20-2024 Refill Ashley Lugo RN [facility] Comment on above: Lumbar spondylosis ( Primary Dx); Lumbosacral spondylosis without myelopathy Start: 07-30-2024 End: 07-30-2024 ambulatory ALMAZ N [facility] Start: 07-28-2024 End: 07-28-2024 ambulatory [facility] Work Phone: Start: 07-28-2024 End: 07-28-2024 Patient encounter procedure [facility] Gastroenterology Work Phone: Start: 07-15-2024 End: 07-15-2024 Bamboo flowsheet Dominik Mau DO Work Phone: [facility] Start: 07-15-2024 End: 07-15-2024 Bamboo flowsheet Dominik Mau DO Work Phone: [facility] Start: 07-15-2024 End: 07-15-2024 Telephone encounter Maddie Castañeda MD Work Phone: [facility] Start: 07-15-2024 End: 07-15-2024 Office outpatient visit 15 minutes Dominik Mau DO Work Phone: [facility] Comment on above: Asymptomatic menopau gustavo state; Hot flashes Start: 07-15-2024 End: 07-15-2024 ambulatory DOMINIK MAU Not Available Start: 07-11-2024 End: 07-11-2024 Bamboo flowsheet Rianna Kasper EXECUTIVE LEGAL SECRETARY Work Phone: [facility] Start: 07-11-2024 End: 07-11-2024 Bamboo flowsheet Rianna Kasper EXECUTIVE LEGAL SECRETARY Work Phone: [facility] Start: 07-11-2024 End: 07-11-2024 Telephone encounter Rianna Kasper NP Work Phone: [facility] Start: 07-11-2024 End: 07-11-2024 Office outpatient visit 25 minutes Rianna Kasper EXECUTIVE LEGAL SECRETARY Work Phone: [facility] Comment on above: Generalized abdomina l pain (Primary Dx); Other constipation; Nausea; Irritable bowel syndrome, unspecified type; History of diverticulitis Start: 07-11-2024 End: 07-11-2024 ambulatory RIANNA KASPER Not Available Start: 06-21-2024 End: 06-21-2024 ambulatory ANKITA HERLINDA [facility] Start: 06-20-2024 End: 06-20-2024 ambulatory HAIDER CALABRESE [facility] Start: 06-20-2024 End: 06-20-2024 ambulatory [facility] Start: 06-19-2024 End: 07-20-2024 ambulatory [facility] Start: 05-30-2024 End: 05-30-2024 ambulatory [facility] Start: 05-30-2024 End: 06-02-2024 ambulatory [facility] Start: 05-21-2024 End: 06-19-2024 ambulatory [facility] Start: 05-17-2024 End: 05-17-2024 ambulatory BROWNTON Aditi [facility] Start: 05-16-2024 End: 05-16-2024 ambulatory [facility] Start: 05-15-2024 End: 05-15-2024 ambulatory ALE RECINOS Not Available Start: 05-07-2024 End: 05-19-2024 ambulatory [facility] Start: 05-07-2024 End: 05-07-2024 ambulatory [facility] Raoul [facility] Not Available Start: 05-06-2024 End: 05-06-2024 ambulatory ALE RECINOS Not Available Start: 04-22-2024 End: 04-22-2024 ambulatory [facility] Start: 04-16-2024 End: 04-18-2024 ambulatory ASHLEY L PUMP [facility] Start: 04-01-2024 End: 04-01-2024 ambulatory Chelsea L Ly Facility:[facility] Start: 03-27-2024 End: 03-29-2024 ambulatory ASHLEY L [facility] Start: 03-25-2024 End: 03-25-2024 ambulatory [facility] Start: 03-05-2024 End: 03-05-2024 ambulatory [facility] Work Phone: Start: 03-05-2024 End: 03-05-2024 Patient encounter procedure [facility] Gastroenterology Work Phone: Start: 02-29-2024 End: 02-29-2024 ambulatory RIANNA KASPER Not Available Start: 02-16-2024 End: 02-16-2024 ambulatory [facility] Start: 02-15-2024 End: 02-15-2024 ambulatory [facility] Start: 01-22-2024 End: 01-22-2024 ambulatory ALE HAMPTON [facility] Start: 01-18-2024 End: 01-18-2024 ambulatory ASHLEY PUMP Not Available Start: 01-12-2024 End: 01-12-2024 ambulatory ASHLEY Aditi [facility] Start: 01-11-2024 End: 01-11-2024 ambulatory [facility] Start: 01-08-2024 End: 01-08-2024 ambulatory DOMINIK MAU Not Available Start: 01-07-2024 End: 01-07-2024 ambulatory ASHLEY PUMP Not Available Start: 01-03-2024 Chart abstracting Ashley Pump N P Work Phone: [facility] Start: 12-26-2023 End: 12-27-2023 ambulatory RIANNA KASPER [facility] Start: 12-26-2023 Telephone encounter Rianna Kasper EXECUTIVE LEGAL SECRETARY Work Phone: [facility] Start: 12-26-2023 End: 12-26-2023 [facility] Start: 12-25-2023 Orders Only Rianna eduardo DESKIDDING MACHINE OPERATOR-BI LEAD Work Phone: [facility] Comment on above: Diarrhea, unspecifie d Start: 12-25-2023 End: 12-25-2023 Office outpatient visit 25 minutes Rianna Kasper EXECUTIVE LEGAL SECRETARY Work Phone: [facility] Comment on above: Nausea and vomiting, unspecified vomiting type (Primary Dx); Heartburn; Diarrhea, unspecified type; Generalized abdominal pain; Irritable bowel syndrome, unspecified type; Diverticulosis of large intestine without hemorrhage; History of diverticulitis Start: 12-25-2023 End: 12-25-2023 ambulatory RIANNA KASPER Not Available Start: 12-19-2023 Telephone encounter Ashley Velez mp DESKIDDING MACHINE OPERATOR-BI LEAD Work Phone: [facility] - Sleep Disorders Comment on above: Sleep Lab (COMP) Start: 12-13-2023 End: 12-13-2023 ambulatory DOMINIK LEÓN Not Available Start: 12-10-2023 End: 12-10-2023 ambulatory ASHLEY PUMP Not Available Start: 12-05-2023 End: 12-05-2023 ambulatory Yannick Rosales Other [employer] Information Other Start: 12-05-2023 Office outpatient vi sit 15 minutes Yannick Rosales [facility] Gastroenterology Start: 11-14-2023 End: 11-14-2023 ambulatory ASHLEY PUMP Not Available Start: 11-08-2023 End: 11-08-2023 ambulatory ASHLEY PUMP Not Available Start: 10-16-2023 End: 10-16-2023 ambulatory HONEY Carrillo LUDIVINA Not Available Start: 10-08-2023 End: 10-08-2023 ambulatory ASHLEY PUMP Not Available Start: 07-11-2023 End: 07-11-2023 ambulatory Cassandra Mixon Facility:[facility] Start: 07-11-2023 End: 07-11-2023 ambulatory MD Maddie Castañeda Work Phone: [facility] Work Phone: Start: 07-11-2023 End: 07-11-2023 Patient encounter procedure MD Maddie Castañeda Work Phone: [facility] [address] Work Phone: Start: 09-18-2022 End: 09-18-[address] DOMINIK LEÓN Facility: Start: 05-03-2022 End: 05-03-2022 ambulatory [facility] Other [employer] Information Other Start: 05-03-2022 Telephone encounter [facility] Start: 04-12-2022 End: 04-12-2022 ambulatory [facility] Elizabethjohn Other [employer] Information Other Start: 04-12-2022 Telephone encounter [facility] Johnsonjohn [facility] Start: 03-28-2022 End: 03-28-2022 ambulatory Yannick Ervinormack Other [employer] Other Start: 03-28-2022 Office outpatient vi sit 15 minutes Yannick Rosales [facility] Start: 02-08-2022 End: 02-08-2022 ambulatory Yannick Rosales Other [employer] Other Start: 02-08-2022 Office outpatient ne w 45 minutes Yannick Rosales [facility] Start: 01-14-2022 End: 01-14-2022 ambulatory Ashley Mayer Other [employer] Information Other Start: 01-14-2022 Office outpatient ne w 20 minutes Ashley Mayer [facility] Procedures Date Procedure Procedure Detail Performing Clinician Start: 09-29-2024 IGP,APTIMA HPV,AGE GDLN Dominik Mau DO Work Phone: Start: 12-25-2023 Complete blood count with white cell differential, automated Rianna Kasper NP Work Phone: Start: 12-25-2023 Comprehensive metabolic panel Rianna Kasper NP Work Phone: Start: 09-24-2023 Cytp cerv/vag auto thin layer prep mnl screen Dominik Mau DO Work Phone: Start: 04-11-2023 Mammography Rianna Kasper NP Work Phone: Start: 04-10-2023 H/O: hysterectomy Status post hysterectomy Rianna Kasper NP Work Phone: Plan of Treatment Date Care Activity Detail Author Start: 12-17-2027 DTaP,Tdap and Td Vaccines (7 - Td or Tdap) DTaP,Tdap and Td Vaccines (7 - Td or Tdap) [facility] Start: 11-25-2025 Tobacco Screening Tobacco Screening [facility] Start: 10-07-2025 Adult BMI Screening Adult BMI Screen ing [facility] Start: 10-07-2025 Tobacco Screening Tobacco Screening [facility] Start: 10-05-2025 End: 10-05-2025 Patient encounter procedure 10/05/2025 3:00 PM EST Office Visit [facility] [address] [place] [address] Dominik León DO [address] [place] [address] [facility] Start: 09-03-2025 Tobacco Screening Tobacco Screening [facility] Start: 07-30-2025 Tobacco Screening Tobacco Screening [facility] Start: 04-16-2025 Adult BMI Screening Adult BMI Screen ing [facility] Start: 01-06-2025 End: 01-06-2025 Patient encounter procedure 01/06/2025 3:00 PM EST Office Visit [facility] [address] [place] [phone] Ale Hampton, DESKIDDING MACHINE OPERATOR-BI LEAD [address] [place] [address] [facility] Start: 12-24-2024 End: 12-24-2024 Patient encounter procedure 12/24/2024 12:00 PM EST Office Visit [facility] [address] [place] [phone] Fern Iraheta, DESKIDDING MACHINE OPERATOR-BI LEAD [address] [facility], [address] [place] [address] [facility] Start: 12-17-2024 End: 12-17-2024 Patient encounter procedure 12/17/2024 11:45 AM EST Office Visit [facility] [address] [place] [phone] Fern Iraheta, DESKIDDING MACHINE OPERATOR-BI LEAD [address] [facility] [facility], [address] [place] [address] [facility] Start: 11-09-2024 Adult BMI Screening Adult BMI Screen ing [facility] Start: 11-09-2024 Tobacco Screening Tobacco Screening [facility] Start: 10-31-2024 End: 10-31-2024 Patient encounter procedure 10/31/2024 8:15 AM EST Appointment [facility] - MRI Imaging [address] [place] [phone] Ale Hampton, DESKIDDING MACHINE OPERATOR-BI LEAD [address] [place] [address] [facility] Start: 10-07-2024 End: 10-07-2025 MR Lumbar spine WO contrast MR lumbar spine without contrast Imaging Routine Intervertebral disc disorder with radiculopathy of lumbar region Expected: 10/07/2024, Expires: 10/07/2025 [facility] Work Phone: Comment on above: Expected: 10/07/2024 , Expires: 10/07/2025 Start: 10-07-2024 End: 10-07-2024 Patient encounter procedure 10/07/2024 9:15 AM EST Office Visit [facility] [address] [place] [phone] Ale Hampton, DESKIDDING MACHINE OPERATOR-BI LEAD [address] [place] [address] [facility] Start: 09-29-2024 End: 11-29-2025 MG Breast - bilateral Screening Bilateral screening mammogram Imaging Routine Breast cancer screening by mammogram Expected: 09/29/2024 (Approximate), Expires: 11/29/2025 [facility] Work Phone: Comment on above: Expected: 09/29/2024 (Approximate), Expires: 11/29/2025 Start: 09-29-2024 End: 09-29-2024 Patient encounter procedure 09/29/2024 2:00 PM EST Office Visit [facility] [address] [address] Dominik León DO [address] [place], [place] [phone] [facility] Start: 09-24-2024 End: 09-24-2024 Patient encounter procedure 09/24/2024 3:00 PM EST Office Visit [facility] [address] [place] [phone] PumpAshley, EXECUTIVE LEGAL SECRETARY [address] [place] [address] Arrived [facility] Comment on above: Arrived Start: 09-04-2024 End: 09-04-2024 Patient encounter procedure [facility] Start: 09-03-2024 End: 09-03-2024 Patient encounter procedure 09/03/2024 8:45 AM EDT Office Visit [facility] [address] [place] [phone] Almaz Wetzel PA-C [address] [place] [address] [facility] Start: 08-27-2024 End: 08-27-2024 Patient encounter procedure 08/27/2024 9:30 AM EDT Office Visit [facility] [address] [place] [phone] Ashley Barker NP [address] [place] [address] Arrived [facility] Comment on above: Arrived Start: 08-12-2024 End: 08-12-2024 Patient encounter procedure 08/12/2024 8:00 AM EDT Office Visit [facility] [address] [place] [phone] Dominik León, DO [address] [place] [address] [facility] Start: 07-20-2024 COVID-19 Vaccine ( season) COVID-19 Vaccine ( season) [facility] Start: 07-20-2024 COVID-19 Vaccine ( season) COVID-19 Vaccine () [facility] Start: 07-20-2024 Influenza vaccination [facility] Start: 07-15-2024 End: 07-15-2024 Patient encounter procedure [facility] Comment on above: Arrived Start: 07-11-2024 End: 07-11-2024 Patient encounter procedure 07/11/2024 10:00 AM EDT Office Visit [facility] [address] [place] [address] Rianna Kasper NP [address] [place] [address] Arrived [facility] Comment on above: Arrived Start: 04-30-2024 End: 04-30-2024 Clinical Support 04/30/2024 8:00 PM EDT Clinical Support [facility] [address] [place] [address] [facility] Start: 04-16-2024 End: 04-16-2024 Clinical Support 04/16/2024 8:00 PM EDT Clinical Support [facility] [address] [place] [phone] [facility] Start: 04-11-2024 Screening for malignant neoplasm of breast Mammogram [facility] Start: 01-07-2024 End: 01-07-2024 Patient encounter procedure 01/07/2024 10:00 AM EST Office Visit [facility] [address] [place] [phone] Pump, Ashley, EXECUTIVE LEGAL SECRETARY [address] [place] [address] [facility] Start: 12-26-2023 End: 12-26-2023 Patient encounter procedure 12/26/2023 1:15 PM EST Office Visit [facility] [address] [place] [phone] Almaz Wetzel, PAMyrandaC [address] [facility] [place] [address] [facility] Start: 12-25-2023 End: 09-02-2025 C difficile by PCR [facility] Work Phone: Comment on above: Expected: 12/25/2023 , Expires: 12/25/2024 Expected: 12/25/2023 , Expires: 09/02/2025 Start: 12-25-2023 End: 12-25-2024 C DIFFICILE BY PCR ([facility]) C DIFFICILE BY PCR ([facility]) Lab Routine Diarrhea, unspecified type Expected: 12/25/2023 (Approximate), Expires: 12/25/2024 [facility] Work Phone: Comment on above: Expected: 12/25/2023 [...] Routine Diarrhea, unspecified Expected: 12/25/2023, Expires: 09/02/2025 [facility] Work Phone: Comment on above: Expected: 12/25/2023 , Expires: 09/02/2025 Start: 12-25-2023 End: 12-25-2024 Ova and parasite screen Ova and parasite screen Microbiology Routine Diarrhea, unspecified type Expected: 12/25/2023 (Approximate), Expires: 12/25/2024 [facility] Comment on above: Expected: 12/25/2023 (Approximate), Expires: 12/25/2024 Start: 12-25-2023 End: 09-02-2025 Stool culture [facility] Comment on above: Expected: 12/25/2023 (Approximate), Expires: 12/25/2024 Expected: 12/25/2023 , Expires: 09/02/2025 Start: 07-20-2023 COVID-19 Vaccine ( season) COVID-19 Vaccine ( season) [facility] Start: 07-20-2023 Influenza vaccination [facility] Start: 1999 Adult BMI Follow Up Plan Adult BMI Follow Up Plan [facility] Start: 1993 Depression Screening Depression Scre lux [facility] THIN PREP TIS PAP AN D HR HPV DNA THIN PREP TIS PAP AND HR HPV DNA Pathology and Cytology Routine Well woman exam with routine gynecological exam Ordered: 09/29/2024 [facility] Comment on above: Ordered: 09/29/2024 Immunizations Immunization Date Immunization Notes Care Provider Giovani adrian 01-16-2022 COVID-19 mRNAElena (Pfizer) MD Maddie Castañeda Work Phone: [facility] 07-01-2021 COVID-19 Elena Driver (Pfizer) MD Maddie Castañeda Work Phone: [facility] 09-02-2018 influenza virus vaccine, unspecified formulation Ashley Pump DESKIDDING MACHINE OPERATOR-BI LEAD Work Phone: [facility] 08-06-2018 influenza, injectabl e, quadrivalent, preservative free Rianna Majo EXECUTIVE LEGAL SECRETARY Work Phone: [facility] 12-17-2017 tetanus toxoid, reduced diphtheria toxoid, and acellular pertussis vaccine, adsorbed Rianna Majo EXECUTIVE LEGAL SECRETARY Work Phone: [facility] 08-22-2017 influenza, injectabl e, quadrivalent, preservative free Rianna Majo EXECUTIVE LEGAL SECRETARY Work Phone: [facility] 09-05-2011 influenza virus vaccine, unspecified formulation Rianna Majo EXECUTIVE LEGAL SECRETARY Work Phone: [facility] 04-06-1986 diphtheria, tetanus toxoids and pertussis vaccine Rianna Majo EXECUTIVE LEGAL SECRETARY Work Phone: [facility] 12-19-1982 diphtheria, tetanus toxoids and pertussis vaccine Rianna Majo EXECUTIVE LEGAL SECRETARY Work Phone: [facility] 12-19-1982 measles virus vaccine Elizab eth Majo EXECUTIVE LEGAL SECRETARY Work Phone: [facility] 12-19-1982 poliovirus vaccine, unspecified formulation Rianna Majo EXECUTIVE LEGAL SECRETARY Work Phone: [facility] 1981 diphtheria, tetanus toxoids and pertussis vaccine Rianna Majo EXECUTIVE LEGAL SECRETARY Work Phone: [facility] 1981 diphtheria, tetanus toxoids and pertussis vaccine Rianna Majo EXECUTIVE LEGAL SECRETARY Work Phone: [facility] 1981 poliovirus vaccine, unspecified formulation Rianna Majo EXECUTIVE LEGAL SECRETARY Work Phone: [facility] 1981 diphtheria, tetanus toxoids and pertussis vaccine Riannatrudy Obrienel EXECUTIVE LEGAL SECRETARY Work Phone: [facility] 1981 poliovirus vaccine, unspecified formulation Rianna Kasper EXECUTIVE LEGAL SECRETARY Work Phone: [facility] Payers Date Payer Category Payer Self-pay [id number] 2017 [facility] BCBS [id number] 2017 [facility] Managed Care - Other ANTH [id number]. [id number] 2017 Unknown 1.2.840.312386. 1.13.424.2. 7.3.684027.315 1981 Unknown [id number] 2.840.1.192956.3.579.2. 593 1981 Unknown [id number] 2.16840.1.949143.3.579.2. 1286 1981 Unknown [id number] 2.840.1.200739.3.579.2. 1258 1981 Unknown [id number] 2.840.1.757699.3.579.2. 1258 1981 Unknown [id number] 2.0.1.759682.3.579.2. 1258 1981 Unknown [id number] 2.840.1.001983.3.579.2. 1258 1981 Unknown [id number] 2.0.1.886941.3.579.2. 1258 1981 Unknown [id number] 2.840.1.554177.3.579.2. 1258 1981 Unknown [id number] 2.0.1.585471.3.579.2. 1258 1981 Unknown [id number] 2.840.1.997344.3.579.2. 1258 1981 Unknown [id number] 2.840.1.079523.3.579.2. 1258 1981 Unknown [id number] 2.840.1.290019.3.579.2. 1258 1981 Unknown [id number] 2.840.1.660852.3.579.2. 1258 1981 Unknown [id number] 2.840.1.415814.3.579.2. 1258 1981 Unknown [id number] 2.840.1.279137.3.579.2. 1258 1981 Unknown [id number] 2.16.840.1.320211.3.579.2. 1258 1981 Unknown [id number] 2.16.840.1.072556.3.579.2. 1258 1981 Unknown [id number] 2.16.840.1.651712.3.579.2. 1258 1981 Unknown [id number] 2.16840.1.431643.3.579.2. 1258 1981 Unknown [id number] 2.840.1.750104.3.579.2. 1258 1981 Unknown [id number] 2.840.1.473851.3.579.2. 1258 1981 Unknown [id number] 2.840.1.541928.3.579.2. 1258 1981 Unknown [id number] 2.0.1.440267.3.579.2. 1258 1981 Unknown [id number] 2.840.1.644351.3.579.2. 1258 1981 Unknown [id number] 2.0.1.135177.3.579.2. 1258 1981 Unknown [id number] 2.840.1.088766.3.579.2. 1258 1981 Unknown [id number] 2.840.1.749948.3.579.2. 1285 1981 Unknown [id number] 2.840.1.499911.3.579.2. 1285 1981 Unknown [id number] 2.840.1.223012.3.579.2. 1285 1981 Unknown [id number] 2.840.1.408228.3.579.2. 1285 1981 Unknown [id number] 2.840.1.887545.3.579.2. 1285 1981 Unknown [id number] 2..840.1.714730.3.579.2. 1285 1981 Unknown [id number] 2.840.1.531318.3.579.2. 1285 1981 Unknown [id number] 2.16.840.1.227729.3.579.2. 1285 1981 Unknown [id number] 2.840.1.679507.3.579.2. 1285 1981 Unknown [id number] 2.840.1.146721.3.579.2. 1285 1981 Unknown [id number] 2.840.1.791714.3.579.2. 1285 1981 Unknown [id number] 2.840.1.284515.3.579.2. 1285 1981 Unknown [id number] 2.0.1.250102.3.579.2. 1285 1981 Unknown [id number] 2.840.1.323350.3.579.2. 1285 1981 Unknown [id number] 2.840.1.338599.3.579.2. 1285 1981 Unknown [id number] 2.840.1.977911.3.579.2. 1285 1981 Unknown [id number] 2.840.1.589597.3.579.2. 1285 1981 Unknown [id number] 2.840.1.449023.3.579.2. 1285 1981 Unknown [id number] 2.840.1.066439.3.579.2. 1285 1981 Unknown [id number] 2.840.1.423099.3.579.2. 1285 1981 Unknown [id number] 2.840.1.518784.3.579.2. 1285 1981 Unknown [id number] 2.16.840.1.834158.3.579.2. 1285 1981 Unknown [id number] 2.16.840.1.054325.3.579.2. 1285 1981 Unknown [id number] 2.16840.1.678328.3.579.2. 1285 1981 Unknown [id number] 2.16840.1.456668.3.579.2. 1285 1981 Unknown [id number] 2.0.1.598356.3.579.2. 1285 1981 Unknown [id number] 2.16840.1.410472.3.579.2. 1285 1981 Unknown [id number] 2.0.1.104091.3.579.2. 1285 1981 Unknown [id number] 2.0.1.569736.3.579.2. 1285 1981 Unknown [id number] 2.0.1.974915.3.579.2. 1285 1981 Unknown [id number] 2.840.1.204835.3.579.2. 1285 1981 Unknown [id number] 2.0.1.248149.3.579.2. 1285 1981 Unknown [id number] 2.840.1.506153.3.579.2. 1285 1981 Unknown [id number] 2.0.1.519677.3.579.2. 1285 1959 Blue Cross Blue Shield [id number] 2.840.1.137610.19 Medicaid [employer] Advantage [id number] Medicaid Medicaid [id number] Unknown [facility] [id number] Unknown [id number] 2.16.840.1.774810.3.579.2. 531 Unknown [id number] 2.16.840.1.696567.3.579.2. 531 Social History Date Type Detail Facility Start: 12-30-2020 End: 11-09-2023 Sex Assigned At [facility] 8aweek Other Start: 05-03-2022 End: 04-01-2024 Tobacco smoking status NHIS Never smoked tobacco (finding) [facility] Start: 1980 Sex Assigned At Female [facility] Start: 04-18-2023 End: 10-25-2023 Tobacco use and exposure Smokeless tobacco non-user [facility] Start: 11-09-2023 End: 11-25-2024 Alcohol intake Current non-drinker of alcohol (finding) [facility] Start: 12-30-2020 End: 11-09-2023 History of Social function [facility] Childcare Unknown [facility] Start: 1980 Sex Assigned At Not on file [facility] History of tobacco use Passive smoker [...] female gender (finding) [facility] Start: 06-24-2015 End: 11-26-2024 Sex Female (finding) [facility] tem Goals Date Patient Goal Desired Activity /State Personal health goal Clinical Notes 12-21-2021 to 11-25-2024 Ale Hampton, ANNY-BI LEAD - 11/25/2024 1:00 PM ESTTelephone Encounter - Suzie Nichole, RMA - 10/23/2024 10:11 AM ESTTelephone Encounter - Suzie Nichole, A - 10/23/2024 10:11 AM EST Note Date & Type Note Facility 11-25-2024 History of Presen t illness Narrative [facility] [address] [place] [address] Patient: Georgette Wu Sex: female : 1980 Age: 44 y.o. PCP: Maddie Castañeda MD 11/25/2024 Georgette Wu is here for a follow up to review lumbar spine MRI results. Patient is not sure she wants to have any interventional procedures done at this time. Chief Complaint Patient presents with Back Pain HPI: Patient completed 4 weeks of PT August 2024 with no relief No relief from Gabapentin moderate relief with Lyrica Procedures bilateral L 4/5, 5/1 medial branch block [...] 2022). The problem occurs constantly. The problem is unchanged (fluctuates with activity). The pain is present in the lumbar spine (right hip). The quality of the pain is described as aching and cramping. Radiates to: right leg. Pain scale: 5/10 now while sitting, increases to 7/10 with ADLs recently. The pain is moderate. Worse during: worse depends on activity. The symptoms are aggravated by standing, bending and twisting (walking, stairs, lifting, push/pull, cough/sneeze, transitioning). Stiffness is present In the morning. Associated symptoms include numbness (bilateral legs and feet), tingling (bilateral legs and feet) and weakness (bilateral legs and feet). Pertinent negatives include no abdominal pain, bladder incontinence, bowel incontinence, chest pain, fever or leg pain (bilateral legs and feet). (Muscle spasms to right calf) Risk factors include obesity. She has tried NSAIDs, home exercises, muscle relaxant, ice and heat (PT June 2023 with no relief, surgery 2020 w/ sig relief; tylenol, IBU min relief; OTC muscle rub with no relief, PT land and pool therapy for 4 wks 09/11) for the symptoms. The effect of pain on patient's ADLS: Moderate Impairment. Past Medical History: Diagnosis Date Anxiety Arthritis Bipolar disorder (CMS-HCC) Dental bridge present Depression Diverticulosis GERD (gastroesophageal reflux disease) Migraines Obesity Past Surgical History: Procedure Laterality Date CHOLECYSTECTOMY DISCECTOMY LUMBAR Right 03/02/2021 Performed by Honey De Leon DO at [facility] FASCIOTOMY PLANTAR FOOT Right 07/14/2022 Performed by Maulik Holt DPM at [facility] HYSTERECTOMY INJECTION BLOCK NERVE MEDIAL BRANCH BILAT L 4/5, 5/1 Bilateral 02/15/2024 Performed by Haider Calabrese MD at [facility] INJECTION BLOCK NERVE MEDIAL BRANCH bilat L 4/5, 5/1 Bilateral 01/11/2024 Performed by Haider Calabrese MD at [facility] PLANTAR FASCIA RELEASE RADIOFREQUENCY ABLATION SPINAL LEFT L 4/5, 5/1 Left 06/20/2024 Performed by Haider Calabrese MD at [facility] RADIOFREQUENCY ABLATION SPINAL RIGHT L 4/5, 5/1 Right 05/16/2024 Performed by Haider Calabrese MD at [facility] ROTATOR CUFF REPAIR TONSILLECTOMY TUBAL LIGATION Allergies Allergen Reactions Amoxil [Amoxicillin] Hives and Swelling Latuda [Lurasidone] Facial Swelling Face swelling and itchy Family History Problem Relation Age of Onset [...] on file Food Insecurity: No Food Insecurity (11/25/2024) Hunger Screening Food Insecurity - Worry: Never True Food Insecurity - Inability: Never True Transportation Needs: Not on file Physical Activity: Not on file Stress: Not on file Social Connections: Not on file Interpersonal Safety: Not on file Housing Instability: Not on file Review of Systems Constitutional: Negative. Negative for chills, fatigue and fever. HENT: Negative. Negative for congestion and sore throat. Eyes: Negative. Respiratory: Negative. Negative for cough and shortness of breath. Cardiovascular: Negative. Negative for chest pain. Gastrointestinal: Negative. Negative for abdominal pain, bowel incontinence, constipation and diarrhea. Endocrine: Negative. Genitourinary: Negative. Negative for bladder incontinence, difficulty urinating and frequency. Musculoskeletal: Positive for back pain. Skin: Negative. Allergic/Immunologic: Negative. Neurological: Positive for tingling (bilateral legs and feet), weakness (bilateral legs and feet) and numbness (bilateral legs and feet). Hematological: Negative. Psychiatric/Behavioral: Negative. Vital Signs: BP 138/87 (BP Site: Left Arm, BP Postition: Sitting) Pulse 86 Resp 20 LMP 02/17/2020 (Approximate) Physical Exam: [...] Tenderness to palpation is noted over the Right SacroIliac Joint: Fabere sign (Chu's Test) is [...] 1 capsule (100 mg total) before bedtime. Disorder of sacrum - pregabalin (LYRICA) 100 mg capsule; Take 1 capsule (100 mg total) by mouth in the morning and 1 capsule (100 mg total) before bedtime. Spinal stenosis of lumbar region with neurogenic claudication - pregabalin (LYRICA) 100 mg capsule; Take 1 capsule (100 mg total) by mouth in the morning and 1 capsule (100 mg total) before bedtime. Refill Lyrica 100 mg BID Monitor Follow up 4-6 weeks The medications I have prescribed have been [...] reviewed, discussed and appropriate for medications prescribed. Lyrica was refilled at today's office visit. Treatment plans discussed but not opted for at this time: Right SI joint injection and/or Right L4, L5 nerve root injection. Pain is under adequate control. At this time it does appear that the patient s pain is under adequate control with conservative care. It is felt that we should continue this approach and continue to monitor these symptoms and address them again in the future if they become more problematic. This approach was discussed with the patient and they are in agreement. The spine model was demonstrated and MRI was reviewed and used to explain the condition. Chronic conditions not treated during this visit that affected my overall medical decision making: Obesity, Anxiety and Depression OARRS: Reviewed. Scribe Statement: Agnes Rivero CNA, scribed for and in the presence of REMINGTON HARRY who performed the above service. Provider Statement: ALE Rivero APRN-CNP, personally performed the services described in the documentation, as scribed by Agnes Leiva CNA in my presence, and it is both accurate and complete. Agnes Leiva CNA 11/25/24 1341 REMINGTON Harry 11/25/24 1627 documented in this encounter [facility] 10-23-2024 Miscellaneous Notes Metal Cut Off Saw Operator called patient and left voicemail informing her that her appointment on 12/17/2024 needs rescheduled as the provider is out of the office that day. Asked that patient call our office back at her earliest convenience. documented in this encounter [facility] 10-23-2024 Telephone encounter Note Metal Cut Off Saw Operator called patient and left voicemail informing her that her appointment on 12/17/2024 needs rescheduled as the provider is out of the office that day. Asked that patient call our office back at her earliest convenience. [facility] 10-07-2024 History of Presen t illness Narrative [facility] [address] [place] [address] Patient: Georgette Wu Sex: female : 1980 Age: 44 y.o. PCP: Maddie Castañeda MD 10/07/2024 Georgette Wu is here for a(n) follow up physical therapy. Patient reports completing 4 weeks of land and pool therapy. She reports no significant change in pain with therapy. Reports pain is currently 3/10 and can increase to 8/10 depending on activity. States has numbness and tingling in bilateral posterior lower legs. Reports the Lyrica has helped the numbness and tingling with no adverse side effects such as suicidal or homicidal ideations. Chief Complaint Patient presents with Back Pain HPI: Patient completed 4 weeks of PT August 2024 with no relief No relief from Gabapentin moderate relief with Lyrica Procedures bilateral L 4/5, 5/1 medial branch block [...] 2022). The problem occurs constantly. The problem is unchanged (fluctuates with activity). The pain is present in the lumbar spine (right hip). The quality of the pain is described as aching, cramping, stabbing, shooting and burning. Radiates to: bilateral legs to feet. Pain scale: 3/10 now while sitting, increases to 8/10 with ADLs recently. The pain is moderate. Worse during: worse depends on activity. The symptoms are aggravated by standing, bending and twisting (walking, stairs, lifting, push/pull, cough/sneeze, transitioning). Stiffness is present In the morning. Associated symptoms include numbness (bilateral legs and feet), tingling (bilateral legs and feet) and weakness (bilateral legs and feet). Pertinent negatives include no abdominal pain, bladder incontinence, bowel incontinence, chest pain, fever or leg pain (bilateral legs and feet). (Muscle spasms to right calf ) Risk factors include obesity. She has tried NSAIDs, home exercises, muscle relaxant, ice and heat (PT June 2023 with no relief, surgery 2020 w/ sig relief; tylenol, IBU min relief; OTC muscle rub with no relief, PT land and pool therapy for 4 wks 09/11) for the symptoms. The effect of pain on patient's ADLS: Moderate Impairment. Past Medical History: Diagnosis Date Anxiety Arthritis Bipolar disorder (CMS-HCC) Dental bridge present Depression Diverticulosis GERD (gastroesophageal reflux disease) Migraines Obesity Past Surgical History: Procedure Laterality Date CHOLECYSTECTOMY DISCECTOMY LUMBAR Right 03/02/2021 Performed by Honey De Leon DO at [facility] FASCIOTOMY PLANTAR FOOT Right 07/14/2022 Performed by Maulik Holt DPM at [facility] HYSTERECTOMY INJECTION BLOCK NERVE MEDIAL BRANCH BILAT L 4/5, 5/ Bilateral 02/15/2024 Performed by Haider Calabrese MD at [facility] INJECTION BLOCK NERVE MEDIAL BRANCH bilat L 4/5, 5/1 Bilateral 01/11/2024 Performed by Haider Calabrese MD at [facility] PLANTAR FASCIA RELEASE RADIOFREQUENCY ABLATION SPINAL LEFT L 4/5, 5/ Left 06/20/2024 Performed by Haider Calabrese MD at [facility] RADIOFREQUENCY ABLATION SPINAL RIGHT L 4/5, 5/ Right 05/16/2024 Performed by Haider Calabrese MD at [facility] ROTATOR CUFF REPAIR TONSILLECTOMY TUBAL LIGATION Allergies Allergen Reactions Amoxil [Amoxicillin] Hives and Swelling Latuda [Lurasidone] Facial Swelling Face swelling and itchy Family History Problem Relation Age of Onset [...] on file Food Insecurity: No Food Insecurity (10/07/2024) Hunger Screening Food Insecurity - Worry: Never True Food Insecurity - Inability: Never True Transportation Needs: Not on file Physical Activity: Not on file Stress: Not on file Social Connections: Not on file Interpersonal Safety: Not on file Housing Instability: Not on file Review of Systems Constitutional: Negative. Negative for chills, fatigue and fever. HENT: Negative. Negative for congestion and sore throat. Eyes: Negative. Respiratory: Negative. Negative for cough and shortness of breath. Cardiovascular: Negative. Negative for chest pain. Gastrointestinal: Negative. Negative for abdominal pain, bowel incontinence, constipation and diarrhea. Endocrine: Negative. Genitourinary: Negative. Negative for bladder incontinence, difficulty urinating and frequency. Musculoskeletal: Positive for back pain. Skin: Negative. Allergic/Immunologic: Negative. Neurological: Positive for tingling (bilateral legs and feet), weakness (bilateral legs and feet) and numbness (bilateral legs and feet). Hematological: Negative. Psychiatric/Behavioral: Negative. Vital Signs: BP (!) 139/98 (BP Site: Right Arm, BP Postition: Sitting) Pulse 70 Resp 18 Ht 162.6 cm (5' 4 ) Wt 102.2 kg (225 lb 3.2 oz) LMP 02/17/2020 (Approximate) SpO2 95% BMI 38.66 kg/m Physical Exam: GENERAL - Healthy patient that [...] to touch or pinprick in all dermatomal distributions with exception to increased sensation in the Bilateral L5 levels. Straight Leg Raise is Positive on the Bilateral Gait is normal. Assessment/Treatment Plan: Georgette was seen today for back pain. Diagnoses and all orders for this visit: Intervertebral disc disorder with radiculopathy of lumbar region - MR lumbar spine without contrast; Future Chronic bilateral low back pain with bilateral sciatica Continue Lyrica 100 mg BID DISCUSSION: Treatment options discussed with patient and all questions answered to patient's satisfaction. The patient has been instructed as to [...] reviewed, discussed and appropriate for medications prescribed. Treatment plans discussed but not opted for at this time: Lumbar epidural steroid injections. Patient would like to proceed with the current outlined treatment plan before moving forward with any other options. The spine model was demonstrated and MRI was reviewed and used to explain the condition. Chronic conditions not treated during this visit that affected my overall medical decision making: Obesity, Anxiety OARRS: Reviewed. Scribe Statement: Scribed for and in the presence of REMINGTON HARRY by Agnes Leiva CNA. Provider Statement: I, REMINGTON HARRY, personally performed the services described in the documentation, as scribed by Agnes Leiva CNA in my presence, and it is both accurate and complete. Agnes Leiva CNA 10/07/24 1017 REMINGTON Harry 10/07/24 1152 documented in this encounter [facility] 09-29-2024 History of Presen t illness Narrative Reason for Appointment: Patient ID: Georgette Wu is a 44 y.o. female who presents for Well Women Visit Patient presents today for Annual Exam. MEDICATIONS Current Outpatient Medications Medication Instructions almotriptan (AXERT) 12.5 mg, Oral, Once as needed celecoxib (CELEBREX) 200 mg, Oral, Daily cholecalciferol (VITAMIN D-3) 5,000 Units, Daily estradiol (ESTRACE)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 region- Primary Chronic bilateral low back pain with bilateral sciatica [facility] Diagnosis Otalgia, left- Primary Bilateral tinnitus documented in this encounter [facility]* Diagnosis Generalized abdominal pain- Primary Abdominal pain, generalized Other constipation Nausea Nausea alone Irritable bowel syndrome, unspecified type History of diverticulitis Generalized abdominal pain Abdominal pain, generalized Other constipation documented [facility]* Diagnosis Asymptomatic menopausal state Hot flashes documented [facility]* Diagnosis Lumbar spondylosis Lumbosacral spondylosis without myelopathy Disorder of sacrum Disorders of sacrum Spinal stenosis of lumbar region with neurogenic claudication [facility]* Diagnosis Onset Date Resolution Status Admit Date IBS (irritable bowel syndrome) acute November 26, 2024 9:09am [facility] Work Phone: History general Narrative - Reported* Type Description Date Medical History Migraine headache Medical History Diverticulitis Surgical History tubal ligation Surgical History cholecystectomy Surgical History tonsillectomy and adenoidectomy Surgical History Foot Surgery Surgical History wisdom teeth Surgical History colonoscopy Surgical History hysterectomy Hospitalization History see above Handseeing Information Other InstructionsNot on filedocumented in this encounter [facility] on filedocumented in this encounter [facility] on filedocumented in this encounter [facility] on filedocumented in this encounter [facility]ructionsNot on filedocumented in this encounter [facility] SystemInstructionsNot on filedocumented in this encounter [facility] SystemInstructionsNot on filedocumented in this encounter [facility] SystemReason for referral (narrative)* Consultation (Routine) - Pending Review Specialty Diagnoses / Procedures Referred By Contact Referred To Contact Orthopaedic Surgery Diagnoses Chronic bilateral low back pain with bilateral sciatica Degenerative disc disease at L5-S1 level Herniated intervertebral disc of lumbar spine Lumbosacral spondylosis without myelopathy Ashley Barker NP [address] [facility] [place] [address] Honey De Leon, [address] [facility] [address] [place] [address] Referral ID Status Reason Start Date Expiration Date Visits Requested Visits Authorized [id number] Pending Review Specialty Services Required 08/27/2024 2025 1 1 * Consultation (Routine) - Pending Review Specialty Diagnoses / Procedures Referred By Contac t Referred To Contact Pulmonary Disease Diagnoses VENANCIO (obstructive sleep apnea) Procedures MI OFFICE/OUTPATIENT NEW HIGH MDM 60 MINUTES Ashley Barker NP [address] [facility] [place] [address] Fern Iraheta MD [facility] [place] [address] Referral ID Status Reason Start Date Expiration Date Visits Requested Visits Authorized [id number] Pending Review Specialty Services Required 08/27/2024 2025 1 1 JAIME Weiss for visit NarrativePATIENT HERE AT REQUEST OF DR CASTAÑEDA FOR EVALUATION AND TREATMENT OF IRRITABLE BOWEL SYNDROME, SHE COMPLAINS OF BLOATING AND CONSTIPATION WITH ONE OCCASION OF BLOOD IN STOOL SHE HAS TRIED MIRALAX AND WAS GIVEN BENTYL FROM HER [employer] Other Summary Purpose Family History No Family History Records Found Relationship Condition Age at Onset Recorded Date/T [...] father Rheumatoid arthritis Unknown Unknown Advance Directives No Advanced Directives Records Found Advance Directive Response Recorded Date/ Time Advance Directives No July 4:12pm Advance Directive Response Recorded Date/ Time Advance Directives No July 3:12pm Reason for Referral Specialty Diagnoses / Procedures Referred By Contac t Referred To Contact Radiology Diagnoses Generalized abdominal pain Procedures CT abdomen w IV contrast Rianna Kasper NP [address] [place] [address] Referral ID Status Reason Start Date Expiration Date V isits Requested Visits Authorized [id number] Pending Review 12/25/2023 06/22/2024 1 1 Chief Complaint and Reason for Visit Chief Complaint 3 MONTH F/U-IBS Reason for Visit Irritable bowel synd norah with alternating bowel habits Chief Complaint 4 MONTH FOLLOW UP Reason for Visit Constipation Irritable bowel syndrome with alternating bowel habits Chief Complaint Admit Date 4 MONTH FOLLOW UP/ CONSTIPATION November 26, 2024 9:09am Reason for Visit Admit Date IBS (irritable bowel syndrome) November 262024 9:09am Additional Source Comments REASON FOR VISIT (unrecogniz [...] Lumbosacral spondylosis without myelopathy Ashley Barker NP [address] [place] [address] Phone: tel:[phone] fax:[phone] Honey De Leon, DO [address] [facility] [address] [place] [address] Phone: tel: fax: Referral ID Status Reason Start Date Expiration Date V isits Requested Visits Authorized [id number] Closed Specialty Services Required 08/27/2024 2025 1 1 Reason Comments Med Refill Reason Comments Tinnitus Lt ear and feels plu gged x 1 week. Reason Onset Date Comments Med Refill 09/26/2024 Reason Comments Well Women Visit Reason Comments Abdominal Pain General abdominal pa in but also having Rt sided pain Constipation Has not had BM for a few days. When does go it come out like water. Took 3 stool softeners and Miralax and still have not had bm. decreased appetite Trying clear liquids Reason Comments Menopause Discuss hot flashes Reason Comments Back Pain INFORMATION SOURCE (unrecogn ized section and content) DATE CREATED AUTHOR 06/21/2022 [facility] dical Specialist DATE CREATED AUTHOR AUTHOR'S ORGANIZ ATION 09/24/2022 [facility] DATE CREATED AUTHOR AUTHOR'S ORGANIZ ATION 01/02/2024 [facility] DATE CREATED AUTHOR AUTHOR'S ORGANIZ ATION 04/12/2024 [facility] ysician Group DATE CREATED AUTHOR AUTHOR'S ORGANIZ ATION 10/01/2024 [facility] dical Specialists EPIC DATE CREATED AUTHOR AUTHOR'S ORGANIZ ATION 12/01/2024 [facility] Care Teams (unrecognized sec tion and content) Team Status: Active Member Role Status Dates Maddie Castañeda MD Primary Care Provider Active Team Status: Inactive Member Role Status Dates Maddie Castañeda MD Primary Care Provider Active Cassandra Mixon NP-C Attending Provider Active Full Stack Developer Relationship Specialty Start Date End Date Maddie Castañeda MD [address] [place], [place] [id number] PCP - General Family Medicine 11/01/23 Full Stack Developer Relationship Specialty Start Date End Date Maddie Castañeda MD [address] [place] [address] PCP - General Family Medicine 11/01/23 Full Stack Developer Relationship Specialty Start Date End Date Maddie Castañeda MD [address] [place] [address] PCP - General Family Medicine 04/09/23 Maddie Castañeda MD [address] [place] [address] PCP - [employer] 07/20/23 Pump, Ashley, EXECUTIVE LEGAL SECRETARY [address] [place] [address] Family Medicine 04/09/23 Full Stack Developer Relationship Specialty Start Date End Date Maddie Castañeda MD [address] [place] [address] PCP - General Family Medicine 04/09/23 Maddie Castañeda MD [address] [place] [address] PCP - [employer] 07/20/23 Pump, Ashley, EXECUTIVE LEGAL SECRETARY [address] [place] [address] Family Medicine 04/09/23 Full Stack Developer Relationship Specialty Start Date End Date Maddie Castañeda MD [address] [place] [address] PCP - General Family Medicine 04/09/23 Maddie Castañeda MD [address] [place] [address] PCP - [employer] 07/20/23 Pump, Ashley, EXECUTIVE LEGAL SECRETARY [address] [place] [address] Family Medicine 04/09/23 Team Status: Inactive Member [...] July 28, 2024 End: July 28, 2024 Full Stack Developer Relationship Specialty Start Date End Date Maddie Castañeda MD [address] [facility] [place] [address] PCP - General Family Medicine 11/01/23 Full Stack Developer Relationship Specialty Start Date End Date Maddie Castañeda MD [address] [facility] [place] [address] PCP - General Family Medicine 04/09/23 Maddie Castañeda MD [address] [facility] [place] [address] PCP - [employer] 06/19/23 Ashley Barker, EXECUTIVE LEGAL SECRETARY [address] [facility] [place] [address] Family Medicine 04/09/23 Full Stack Developer Relationship Specialty Start Date End Date Maddie Castañeda MD [address] [facility] [place] [address] PCP - General Family Medicine 04/09/23 Maddie Castañeda MD [address] [facility] [place] [address] PCP - [employer] 06/19/23 Pump, Ashley, EXECUTIVE LEGAL SECRETARY [address] [place] [address] Family Medicine 04/09/23 Full Stack Developer Relationship Specialty Start Date End Date Maddie Castañeda MD [address] [place] [address] PCP - General Family Medicine 11/01/23 Full Stack Developer Relationship Specialty Start Date End Date Maddie Castañeda MD [address] [place] [address] PCP - General Family Medicine 11/01/23 Full Stack Developer Relationship Specialty Start Date End Date Maddie Castañeda MD [address] [place] [address] PCP - General Family Medicine 04/09/23 Maddie Castañeda MD [address] [place] [address] PCP - [employer] 06/19/23 Pump, Ashley, EXECUTIVE LEGAL SECRETARY [address] [place] [address] Family Medicine 04/09/23 Full Stack Developer Relationship Specialty Start Date End Date Maddie Castañeda MD [address] [place] [address] PCP - General Family Medicine 04/09/23 Maddie Castañeda MD [address] [place] [address] PCP - [employer] 06/19/23 Pump, Ashley, EXECUTIVE LEGAL SECRETARY [address] [place] [address] Family Medicine 04/09/23 Full Stack Developer Relationship Specialty Start Date End Date Maddie Castañeda MD [address] [place] [address] PCP - General Family Medicine 04/09/23 Maddie Castañeda MD [address] [place] [address] PCP - [employer] 06/19/23 Pump, Ashley, EXECUTIVE LEGAL SECRETARY [address] [place] [address] Family Medicine 04/09/23 Full Stack Developer Relationship Specialty Start Date End Date Maddie Castañeda MD [address] [place] [address] PCP - General Family Medicine 04/09/23 Maddie Castañeda MD [address] [place] [address] PCP - [employer] 06/19/23 PumpAshley, EXECUTIVE LEGAL SECRETARY [address] [place] [address] Family Medicine 04/09/23 Full Stack Developer Relationship Specialty Start Date End Date Maddie Castañeda MD [address] [place] [address] PCP - General Family Medicine 04/09/23 Maddie Castañeda MD [address] [place] [address] PCP - [employer] 06/19/23 Pump, Ashley, EXECUTIVE LEGAL SECRETARY [address] [place] [address] Family Medicine 04/09/23 Full Stack Developer Relationship Specialty Start Date End Date Maddie Castañeda MD [address] [place] [address] PCP - General Family Medicine 04/09/23 Maddie Castañeda MD [address] [place] [address] PCP - [employer] 06/19/23 PumpAshley, EXECUTIVE LEGAL SECRETARY [address] [place] [address] Family Medicine 04/09/23 Full Stack Developer Relationship Specialty Start Date End Date Maddie Castañeda MD [address] [place] [address] PCP - General Family Medicine 04/09/23 Maddie Castañeda MD [address] [place] [address] PCP - [employer] 06/19/23 PumpAshley, EXECUTIVE LEGAL SECRETARY [address] [place] [address] Family Medicine 04/09/23 Full Stack Developer Relationship Specialty Start Date End Date Maddie Castañeda MD [address] [place] [address] PCP - General Family Medicine 11/01/23 Full Stack Developer Relationship Specialty Start Date End Date Maddie Castañeda MD [address] [place] [address] PCP - General Family Medicine 04/09/23 Maddie Castañeda MD [address] [place] [address] PCP - [employer] 06/19/23 PumpAshley EXECUTIVE LEGAL SECRETARY [address] [place] [address] Family Medicine 04/09/23 Full Stack Developer Relationship Specialty Start Date End Date Maddie Castañeda MD [address] [place] [address] PCP - General Family Medicine 04/09/23 Maddie Castañeda MD [address] [place] [address] PCP - [employer] 06/19/23 Ashley Barker NP [address] [place] [address] Family Medicine 04/09/23 Full Stack Developer Relationship Specialty Start Date End Date Maddie Castañeda MD [address] [place] [address] PCP - General Family Medicine 11/01/23 Full Stack Developer Relationship Specialty Start Date End Date Maddie Castañeda MD [address] [place] [address] PCP - General Family Medicine 04/09/23 Maddie Castañeda MD [address] [place] [address] PCP - [employer] 06/19/23 PumpAshley EXECUTIVE LEGAL SECRETARY [address] [place] [address] Family Medicine 04/09/23 Full Stack Developer Relationship Specialty Start Date End Date Maddie Castañeda MD [address] [place] [address] PCP - General Family Medicine 04/09/23 Maddie Castañeda MD [address] [place] [address] PCP - [employer] 06/19/23 PumpAshley, EXECUTIVE LEGAL SECRETARY [address] [place] [address] Family Medicine 04/09/23 Full Stack Developer Relationship Specialty Start Date End Date Maddie Castañeda MD [address] [place] [address] PCP - General Family Medicine 04/09/23 Maddie Castañeda MD [address] [place] [address] PCP - [employer] 06/19/23 PumpAshley, EXECUTIVE LEGAL SECRETARY [address] [place] [address] Family Medicine 04/09/23 Full Stack Developer Relationship Specialty Start Date End Date Maddie Castañeda MD [address] [place] [address] PCP - General Family Medicine 04/09/23 Maddie Castañeda MD [address] [place] [address] PCP - [employer] 06/19/23 PumpAshley, EXECUTIVE LEGAL SECRETARY [address] [place] [address] Family Medicine 04/09/23 Full Stack Developer Relationship Specialty Start Date End Date Maddie Castañeda MD [address] [place] [address] PCP - General Family Medicine 04/09/23 Maddie Castañeda MD [address] [place] [address] PCP - [employer] 06/19/23 Ashley Barker NP [address] [place] [address] Family Medicine 04/09/23 Full Stack Developer Relationship Specialty Start Date End Date Maddie Castañeda MD [address] [place] [address] PCP - General Family Medicine 04/09/23 Maddie Castañeda MD [address] [place] [address] PCP - [employer] 06/19/23 Ashley Barker NP [address] [place] [address] Family Medicine 04/09/23 Full Stack Developer Relationship Specialty Start Date End Date Maddie Castañeda MD [address] [place] [address] PCP - General Family Medicine 11/01/23 Team Status: Inactive Member Role Status Dates Maddie Castañeda MD Primary Care Provider Active Start: November 26, 2024 End: November 26, 2024 Chelsea Robbins DO Attending Provider Active St art: November 26, 2024 End: November 26, 2024 Goals (unrecognized section and content) Goals may [...] BE BASED ON THE PRIMARY CLINICAL RECORDS. [facility]. provides no warranty or guarantee of the accuracy or completeness of information in this document.
== END 2024-12-03 10:17 | disposition home or self-care (01) ==
LOC: MAMMO 10:16
PROVIDERS: PCP Obstetrics & Gynecology; Visit Provider Obstetrics & Gynecology
DX: Z12.31 Encounter for screening mammogram for malignant neoplasm of breast (principal)
CPT/HCPCS: 77063; 77067

== ENCOUNTER 2025-11-02 20:02 | Outpatient (REF) | payer BC, SELFPAY ==
--- OUTSIDE RECORDS SUMMARY | 2025-04-01 04:45 | XMS_ITS ---
Author Organization [facility] Servic es Address [address] [place] [address] Care Team Providers Care Parking Meter Collector Name Role Phone Dave Dhaliwal Primary Care Provider Vilma Santana Unavailable [phone] STEWART RECINOS Unavailable Unavailable REASON FOR VISIT 1 month f/u Encounters Encounter Location Date Provider Diagnosis [facility] [place] [address] [place] [address] 2024 Dave Dhaliwal Plan Of Treatment No Information Progress Notes * PRISCA WU MDOB: [birth year] (45 yo F)Acc No.[id number]:04/01/2025 Behavioral Health Patient: Carlitos PRISCA MONTOYA :?SCAR GarciaPDOB:1980???Age:45 Y???Sex: FemaleDate:04/01/2025Phone:[phone]:[address] [phone] Subjective: * Chief Complaints: * 1 month f/u * Electronic signature of MARIBEL Garcia on 11/02/2025 at 03:07 PM ESTSign off status: Pending * Provider: MARIBEL Benito Date: 0 04/01/2025 Generated for Printing/Faxing/eTransmitting on:?11/02/2025 03:07 PM EST
--- OUTSIDE RECORDS SUMMARY | 2025-04-03 05:15 | XMS_ITS ---
Author Organization [facility] Servic es Address [address] [place] [address] Care Team Providers Care Ceramic Designer Name Role Phone Dave Dhaliwal Primary Care Provider Vilma Santana Unavailable [phone] STEWART RECINOS Unavailable Unavailable Onesimo, MS. Rush Unavailable [phone] REASON FOR VISIT BH F/U Encounters Encounter Location Date Provider Diagnosis [facility] [address] [place] [address] 04/03/2025 Adri Onesimo Plan Of Treatment No Information Progress Notes * PRISCA WU MDOB: [birth year] (45 yo F)Acc No.[id number]:04/03/2025 F/U - Patient Patient: PRISCA HARDWICK :?Adri LISETTE EcholsOB:1980???Age:45 Y ???Sex:FemaleDate:04/03/2025Phone:[phone]:[address] [id number]:Dave Dhaliwal Subjective: * Chief Complaints: * B H F/U Care Plan Details* * Electronic signature of MS. Rush ANGELICA Echols on 11/02/2025 at 03:07 PM EST Sign off status: Pending * Provider: ANGELICA Watson Date: 0 04/03/2025 Generated for Printing/Faxing/eTransmitting on:?11/02/2025 03:07 PM EST
--- OUTSIDE RECORDS SUMMARY | 2025-04-08 05:45 | XMS_ITS ---
Author Organization [facility] Servic es Address [address] [place] [address] Care Team Providers Care Packager Machine Name Role Phone Dave Dhaliwal Primary Care Provider Vilma Santana Unavailable [phone] STEWART RECINOS Unavailable Unavailable MS. Adri Echols Unavailable [phone] REASON FOR VISIT r/s 04/03 Encounters Encounter Location Date Provider Diagnosis [facility] [address] [place] [address] 04/08/2025 Adri Onesimo Plan Of Treatment No Information Progress Notes * PRISCA WU MDOB: [birth year] (45 yo F)Acc No.[id number]:04/08/2025 F/U - Patient Patient: PRISCA HARDWICK :?Adri BILLY EcholsWDOB:1980???Age:45 Y ???Sex:FemaleDate:04/08/2025Phone:[phone]:[address] [id number]:Dave Dhaliwal Subjective: * Chief Complaints: * R /s 04/03 Care Plan Details* * Electronic signature of MS. Rush ANGELICA Echols on 11/02/2025 at 03:07 PM EST Sign off status: Pending * Provider: ANGELICA Watson Date: 04/08/2025 Generated for Printing/Faxing/eTransmitting on:?11/02/2025 03:07 PM EST
--- OUTSIDE RECORDS SUMMARY | 2025-04-24 09:45 | XMS_ITS ---
Author Organization [facility] Servic es Address [address] [place] [address] Care Team Providers Care Smocker Name Role Phone Dave Dhaliwal Primary Care Provider [phone] Vilma Santana Unavailable [phone] STEWART RECINOS Unavailable Unavailable Onesimo MS. Rush Unavailable [phone] REASON FOR VISIT BH F/U r/s from 04/08 Encounters Encounter Location Date Provider Diagnosis [facility] [address] [address] 04/24/2025 Adri Echols Plan Of Treatment No Information Progress Notes * PRISCA WU MDOB: [birth year] (45 yo F)Acc No.[id number]:04/24/2025 F/U - Patient Patient: PRISCA HARDWICK :?BILLY PerryWDOB:1980???Age:45 Y ???Sex:FemaleDate:04/24/2025Phone:[phone]:[address] [phone]:Dave Dhaliwal Subjective: * Chief Complaints: * B H F/U r/s from 04/08 Care Plan Details* * Electronic signature of MS. Rush ANGELICA Echols on 11/02/2025 at 03:07 PM EST Sign off status: Pending * Provider: ANGELICA Watson Date: 0 04/24/2025 Generated for Printing/Faxing/eTransmitting on:?11/02/2025 03:07 PM EST
--- OUTSIDE RECORDS SUMMARY | 2025-06-30 06:00 | XMS_ITS ---
Author Organization [facility] Servic es Address [address] [place] [address] Care Team Providers Care Skate Maker Name Role Phone Dave Dhaliwal Primary Care Provider Vilma Santana Unavailable [phone] STEWART RECINOS Unavailable Unavailable Onesimo, MS. Rush Unavailable [phone] REASON FOR VISIT BH F/U Encounters Encounter Location Date Provider Diagnosis [facility] [address] [place] [address] 06/30/2025 Adri Onesimo Plan Of Treatment No Information Progress Notes * PRISCA WU MDOB: [birth year] (45 yo F)Acc No.[id number]:06/30/2025 F/U - Patient Patient: PRISCA HARDWICK :?Adri LISETTE EcholsOB:1980???Age:45 Y ???Sex:FemaleDate:06/30/2025Phone:[phone]:[address] [id number]:Dave Dhaliwal Subjective: * Chief Complaints: * B H F/U Care Plan Details* * Electronic signature of MS. Rush ANGELICA Echols on 11/02/2025 at 03:07 PM EST Sign off status: Pending * Provider: ANGELICA Watson Date: 0 06/30/2025 Generated for Printing/Faxing/eTransmitting on:?11/02/2025 03:07 PM EST
--- OUTSIDE RECORDS SUMMARY | 2025-06-30 06:00 | XMS_ITS ---
Author Organization [facility] Servic es Address [address] [place] [address] Care Team Providers Care Mixer Whipped Topping Name Role Phone Dave Dhaliwal Primary Care Provider Vilma Santana Unavailable [phone] STEWART RECINOS Unavailable Unavailable Jeremiah Harris Unavailable [phone] REASON FOR VISIT BH F/U Encounters Encounter Location Date Provider Diagnosis [facility] [address] [place] [address] 06/30/2025 Jeremiah Harris Plan Of Treatment No Information Progress Notes * PRISCA WU MDOB: [birth year] (45 yo F)Acc No.[id number]:06/30/2025 F/U - Patient Patient: PRISCA HARDWICK :?JEREMIAH CHENGOB:1980???Age:45 Y???Sex: FemaleDate:06/30/2025Phone:[phone]:[address] [id number]:Dave Dhaliwal Subjective: * Chief Complaints: * B H F/U Care Plan Details* * Electronic signature of MARY Fields on 11/02/2025 at 03:07 PM ESTSign off status: Pending * Provider: Annabelle HARRIS Date: 0 06/30/2025 Generated for Printing/Faxing/eTransmitting on:?11/02/2025 03:07 PM EST
--- OUTSIDE RECORDS SUMMARY | 2025-11-02 15:20 | XMS_ITS | Encounter Summary ---
Author Organization [facility] Address [address] [place] [address] Care Team Providers Care Torch Straightener Name Role Phone Ashley Barker NP Unavailable Reason for Visit * ReasonCommentsGynecologic Exam Encounter Details DateTypeDepartmentCare Team (Latest Contact Info)Feyaobrxdoe52/15/2025 3:20 PM ESTProcedure Visit [facility] [address] [place] [address] Dominik León DO [address] [place], [facility]11 Well woman exam with routine gynecological exam; Encounter for screening mammogram for malignant neoplasm of breast Social History Tobacco UseTypesPacks/DayYears UsedDateSmoking Tobacco: NeverPassive Smoke Exposure: PastSmokeless Tobacco: NeverAlcohol UseStandard Drinks/WeekCommentsNot Currently0 (1 standard drink = 0.6 oz pure alcohol)Caffeine intake: 1-2 cups per dayAUDIT-CAnswerDate RecordedQ1: How often do you have a drink containing alcohol?Monthly or less06/07/2023Q2: How many drinks containing alcohol do you have on a typical day when you are drinking?1 or Q3: How often do you have six or more drinks on one occasion?Never06/07/2023HQ-2AnswerDate Recorded Patient Health Questionnaire-2 Lyjqj518CommentsNoSex and Gender InformationValueDate RecordedSex Assigned at QssirKplhmw95/24/2023 1:58 PM EDT Legal KbeOkyloc12/15/2023 6:34 PM EDTGender TehbjppeIvnjvs34/15/2023 6:34 PM EDT Sexual OrientationNot on filedocumented as of this encounter Last Filed Vital Signs Vital SignReadingTime TakenCommentsBlood Eqoswzzj182/7611/02/2025 3:40 PM EST Pulse--Temperature--Respiratory Rate--Oxygen Saturation--Inhaled Oxygen Concentration--Ynpkxy808 kg (254 lb)11/02/2025 3:40 PM ESTHeight--Body Mass Index43.606 2:23 PM EDTdocumented in this encounter Plan of Treatment DateTypeDepartmentCare Team (Latest Contact Info)Izjlxafxpqd05/04/2027 4:00 PM ESTProcedure Visit [facility] [address] [address] Dominik León DO [address] [place] [address] NameTypePriorityAssociated DiagnosesOrder ScheduleBilateral screening mammogram ImagingRoutine Encounter for screening mammogram for malignant neoplasm of breast Expected: 11/02/2025 (Approximate), Expires: 01/03/2027THIN PREP TIS PAP AND HR HPV DNAPathology and CytologyRoutine Well woman exam with routine gynecological exam Ordered: 11/02/2025documented as of this encounter Goals GoalPatient Goal TypeAssociated ProblemsRecent ProgressPatient-Stated?Author Help patient manage antidepressant medication Care PlanPatient on antidepressant monitoring planNoPAshley johnston, NPdocumented as of this encounter Visit Diagnoses Diagnosis Well woman exam with routine gynecological exam Routine gynecological examination Encounter for screening mammogram for malignant neoplasm of breast documented in this encounter Additional Health Concerns Active ProblemsNoted DateDiagnosed DatePatient on antidepressant monitoring plan 08/08/2023ssessmentNoted TimePHQ-9 Depression Total Score: 2:00 PM EDTdocumented as of this encounter Care Teams Team MemberRelationshipSpecialtyStart DateEnd Date Ashley Barker NP [address] [place] [address] Family Medicine04/09/23documented as of this encounter
--- OUTSIDE RECORDS SUMMARY | 2025-11-02 20:06 | XMS_ITS | Clinical Summary ---
Author Organization [facility] Address [id number] [address] [place] [address] Care Team Providers Care Band Tier Name Role Phone Maddie Rosales MD Primary Care Provider Allergies Active AllergyReactionsCriticalityNoted DateCommentsAmoxicillinHives,Swelling 05/19/20186794Zpvjgborecre99/23/2023 Other Reaction(s): icreased SE LurasidoneFacial Mwdhzuzg47/19/2024 Face swelling and itchy Penicillin SMhgfl5604/10/20234817Ncmjebbnceg99/23/2023 Other Reaction(s): increased SE Bmwxiptthsf86/23/2023 Other Reaction(s): INCREASE SE Medications MedicationSigDispense QuantityRefillsLast FilledStart DateEnd DateStatus polycarbophil (FIBERCON) 625 mg tablet Take 1 tablet (625 mg total) by mouth in the morning.Active almotriptan (AXERT) 12.5 mg tablet Take 1 tablet (12.5 mg total) by mouth once as needed for migraine.Active dicyclomine (BENTYL) 10 mg capsule Take 1 capsule (10 mg total) by mouth as needed.Active cholecalciferol, vitamin D3, 5,000 units tablet Take 1 tablet (5,000 Units total) by mouth in the morning.Active omeprazole (PriLOSEC) 40 mg capsule Take 1 capsule (40 mg total) by mouth in the morning.Active polyethylene glycol (GLYCOLAX) 17 gram packet Indications:constipationTake 17 g by mouth in the morning. Indications: constipation.Active QUEtiapine (SEROquel) 100 mg tablet Take 1 tablet (100 mg total) by mouth nightly.11/17/2024ctive celecoxib (CeleBREX) 200 mg capsule Take 1 capsule (200 mg total) by mouth in the morning.4Active OLANZapine (ZyPREXA) 2.5 mg tablet Take 1 tablet (2.5 mg total) by mouth nightly.4Active estradioL (ESTRACE) 1 mg tablet Take 1 tablet (1 mg total) by mouth in the morning.6Active vilazodone (VIIBRYD) 20 mg tablet Take 1 tablet (20 mg total) by mouth in the morning.5Active methylPREDNISolone (MEDROL, RICHIE,) 4 mg tablet follow package directions 21 tablet 5Active cyclobenzaprine (FLEXERIL) 10 mg tablet Indications:Muscle spasmTake 1 tablet (10 mg total) by mouth 2 (two) times a day as needed for muscle spasms. 60 tablet 5Active pregabalin (LYRICA) 75 mg capsule Indications:Lumbar post-laminectomy syndromeTake 1 capsule (75 mg total) by mouth in the morning and 1 capsule (75 mg total) before bedtime. 60 capsule 5Active Active Problems ProblemNoted DateDiagnosed DatePosttraumatic stress kfivwejt45/12/2025Lumbar post-laminectomy nwzfcdgy44/18/2025OSA (obstructive sleep apnea)12/26/2024 Bipolar 1 tolwedlc15/06/2024isorder of qscloy1809/03/2024Spinal stenosis of lumbar region with neurogenic chacxfhvwxoi15/16/2024anic wwsbkzg3105/15/2024 Lumbar tdtedlyqcsf43/07/2024Lumbosacral spondylosis without poluzqzaly83/07/2024 Jnqhyus5604/10/20237314Yrxlcfvabwqets01/23/2023Emotional lhzkzwbimb58/23/2023 Diverticulosis of colon04/10/2023High xnuuzsathjpmw13/23/2023Herniated intervertebral disc of lumbar spine04/10/2023Obesity (BMI 30-39.9)04/10/2023 Encounters DateTypeDepartmentCare OvcgZtkimttlcjf98/27/2025[facility] [address] [place] [address] Ale Colon APRN-LYNDON Muscle spasm10/14/2025Refill [facility] [address] [place] [address] Ale Colon APRN-LYNDON Muscle spasm08/25/2025 2:45 PM EDTOffice Visit [facility] [address] [place] [facility] [address] Ale Colon, ANNY-LYNDON Lumbar spondylolysis (Primary Dx); Muscle spasm; Lumbar post-laminectomy fxagqdco00/07/2025Travelfrom Last 3 Months Family History Medical HistoryRelationNameCommentsRheum arthritisFatherDiabetesMaternal GrandmotherDiabetesMotherHypertensionMotherThyroid IssuesMotherDiabetesPaternal GrandmotherRelationNameStatusCommentsFatherDeceasedMaternal GrandmotherMother AlivePaternal Grandmother Social History Tobacco UseTypesPacks/DayYears UsedDateSmoking Tobacco: NeverSmokeless Tobacco: Never Tobacco Cessation:Counseling Given: Not Answered Alcohol UseStandard Drinks/WeekCommentsNo0 (1 standard drink = 0.6 oz pure alcohol)ChildcareAnswerDate TdtqnrlcAxdedajdnDhhroub55/12/2019EmploymentAnswer Date UnvdciarTqxfbkztvyBiimzbx63/12/2019Hunger ScreeningAnswerDate Recorded Within the past 12 months we worried whether our food would run out before we got money to buy more.Never True08/25/2025Within the past 12 months the food we bought just didn't last and we didn't have money to get more.Never True 08/25/2025Purpose - LifeAnswerDate RecordedPurpose and direction in lifeUnknown 1CommentsNoSex and Gender InformationValueDate RecordedSex Assigned at BirthNot on fileLegal NrcTztswa17/06/2015 11:40 AM EDTGender IdentityNot on fileSexual OrientationNot on file Last Filed Vital Signs Vital SignReadingTime TakenCommentsBlood Yrckrbmw430/9110 2:54 PM EDT Wturm807208/25/2025 2:54 PM CKMBexeefvgbmf24.7 ??C (98 ??F)07/24/2025 1:26 PM EDT Respiratory Pzyt5554 2:54 PM EDTOxygen Afgdpfqmck87%07/24/2025 2:07 PM EDTInhaled Oxygen Concentration--Dwvdsc465.7 kg (222 lb)04/15/2025 12:03 PM EDT Kadrql480.6 cm (5' 4 )12/24/2024 12:15 PM ESTBody Mass Index38.11012/24/2024 12:15 PM EST Plan of Treatment DateTypeDepartmentCare Team (Latest Contact Info)Vbhxdgkphij81/17/2025 10:15 AM ESTOffice Visit [facility] [address] [address] Fern Iraheat, GETTERING FILAMENT MACHINE OPERATOR-ELECTRONICS TECHNOLOGY INSTRUCTOR [address], [address] [place], [place] [address] 11/24/2025 2:45 PM ESTOffice Visit [facility] [address] [place] [phone] Ale Colon, GETTERING FILAMENT MACHINE OPERATOR-ELECTRONICS TECHNOLOGY INSTRUCTOR [address] [place], [place] [phone] Health MaintenanceDue DateLast DoneCommentsDepression Edsynhpcs51/07/1993Adult BMI Follow Up Plan1999COVID-19 Vaccine (3 - Pfizer risk series)02/13/2022 01/16/2022, 07/01/2021Influenza Sjvxwsx20, 08/06/2018, 08/22/2017, Additional history existsAdult BMI Cfhzicsnt90 Tobacco Mxarkfjrm12DTaP,Tdap and Td Vaccines (7 - Td or Tdap) 8012/17/2017, 04/06/1986, 12/19/1982, Additional history existsPap Smear Otfpemwomvuq35/11/2024, 09/24/2023, 09/18/2022 Medical Devices Not on file Insurance Care Teams Team MemberRelationshipSpecialtyStart DateEnd Date Maddie Rosales MD [address] [place] [address] PCP - GeneralFamily Ljlovsph39/14/23
--- OUTSIDE RECORDS SUMMARY | 2025-11-02 20:06 | XMS_ITS | Encounter Summary ---
Author Organization [facility] Address [address] [facility] [place] [address] Care Team Providers Care Planer Setup Operator Name Role Phone Ashley Barker NP Unavailable Encounter Details DateTypeDepartmentCare Team (Latest Contact Info)Qpoxuqwbmfp74/15/2025Bamboo flowsheet JAIME [place] [facility] [address] [place] [phone] Dominik León DO [address] [place], [place] [id number] Social History Tobacco UseTypesPacks/DayYears UsedDateSmoking Tobacco: NeverPassive [...] on one occasion?Never06/07/2023HQ-2AnswerDate Recorded Patient Health Questionnaire-2 [id number] and Gender InformationValueDate RecordedSex Assigned at CpcujSwgrvt50/ 1:58 PM EDT Legal RrgTviflk73/15/2023 6:34 PM EDTGender MwimlicaAscjlw69/15/2023 6:34 PM EDT Sexual OrientationNot on filedocumented as of this encounter Plan of Treatment DateTypeDepartmentCare Team (Latest Contact Info)Zqdwphudqvi57/04/2027 4:00 PM ESTProcedure Visit [facility] [address] [place] [phone] Dominik León DO [address] [place] [address] documented as of this encounter Goals GoalPatient Goal TypeAssociated ProblemsRecent ProgressPatient-Stated?Author Help patient manage antidepressant medication Care PlanPatient on antidepressant monitoring planAshley Franco NPdocumented as of this encounter Visit Diagnoses Not on filedocumented in this encounter Additional Health Concerns Active ProblemsNoted DateDiagnosed DatePatient on antidepressant monitoring plan 3AssessmentNoted TimePHQ-9 Depression Total Score: 2:00 PM EDTdocumented as of this encounter Care Teams Team MemberRelationshipSpecialtyStart DateEnd Date Ashley Barkre NP [address] [place] [address] Family Medicine04/09/23documented as of this encounter
--- OUTSIDE RECORDS SUMMARY | 2025-11-02 20:06 | XMS_ITS | Clinical Summary ---
Author Organization [facility] Address [address] [facility] [place] [address] Care Team Providers Care Engineering Program Manager Name Role Phone Pump, Ashley INPATIENT AUDITOR Unavailable Allergies Active AllergyReactionsCriticalityNoted ZdufIleyoeceCfikmmfqkzj99/23/2023 Other Reaction(s): HIVES CodeineGI khybbciufxm18/23/2023 Other Reaction(s): lightheaded Fqtoexljljwt92/23/2023 Other Reaction(s): icreased SE MjaknqxivcPjuqydbm41/11/2024Penicillin IBeorw7104/10/20231671Muyjlrxgurf96/23/2023 Other Reaction(s): increased SE Jdkseziovjf93/23/2023 Other Reaction(s): INCREASE SE Wound Dressing PebjdxxiYadqSvv27/09/2024 Medications MedicationSigDispense QuantityRefillsLast FilledStart DateEnd DateStatus Calcium Polycarbophil (fiber) 625 MG tablet Take 625 mg by mouth in the morning.Active cholecalciferol (Vitamin D-3) 125 MCG (5000 UT) tablet Take 5,000 Units by mouth DailyActive polyethylene glycol, PEG, 3350 (Miralax) 17 g packet Take 17 g by mouth in the morning.Active celecoxib (CeleBREX) 200 MG capsule Indications:Chronic bilateral low back pain with bilateral sciaticaTake 1 capsule (200 mg) by mouth Daily 90 capsule 4Active LORazepam (Ativan) 0.5 MG tablet Take 0.5 mg by mouth every 6 (six) hours if needed for anxietyActive estradiol (Estrace) 1 MG tablet Indications:Hormone imbalanceTake 1 tablet (1 mg) by mouth Daily 90 tablet 506Active OLANZapine (ZyPREXA) 2.5 MG tablet Take 2.5 mg by mouth at ilqvijt1811/17/2024ctive QUEtiapine (SEROquel) 100 MG tablet Take 100 mg by mouth at ifdfpuu1611/17/2024ctive vilazodone (Viibryd) 10 mg tablet Take 10 mg by mouth in the morning. Take with meals.5Active vilazodone (Viibryd) 20 MG tablet Take 20 mg by mouth in the morning. Take with meals.5Active pregabalin (Lyrica) 75 MG capsule Take 75 mg by mouth in the morning and 75 mg before bedtime.Active almotriptan (Axert) 12.5 MG tablet Indications:Migraine without status migrainosus, not intractable, unspecified migraine typeTake 1 tablet (12.5 mg) by mouth 1 (one) time if needed for migraine 12 tablet 1105Active omeprazole (PriLOSEC) [address] capsule Indications:HeartburnTake 1 capsule (40 mg) by mouth in the morning. Take before meals. Do not crush or chew. 90 capsule 5Active omeprazole (PriLOSEC) [address] capsule Indications:HeartburnTAKE 1 CAPSULE BY MOUTH EVERY MORNING TAKE BEFORE MEALS DO NOT CRUSH, OR CHEW 90 capsule Discontinued(Reorder) Active Problems ProblemNoted DateDiagnosed DateBipolar disorder, current episode mixed, moderate 03/30/2025Posttraumatic stress rqikrjia52/12/2025Lumbar post-laminectomy vvpwxszu74/18/2025OSA (obstructive sleep apnea)12/26/2024PAP (continuous positive airway pressure) zzkymhgbso43/07/2025ipolar 1 cadefpdf23/06/2024Hot flashes due to surgical vdujritqr74/11/7446Nqqimqsdkiga18/06/2024Spinal stenosis of lumbar region with neurogenic wkhkooxpkjgd21/16/2024anic ezmxbml6605/15/2024 Lumbosacral spondylosis without bdihvpwpyh18/07/2024hronic bilateral low back pain without azszmepu37/20/7541Tawzumu48/23/2023egenerative disc disease at L5- S1 level04/10/20233990Cjhzfaxqkutcjd29/23/2023iverticulosis of colon04/10/2023 Emotional /23/2023Herniated intervertebral disc of lumbar spine 04/10/2023High hiawiqruxmlbd58/23/2023IBS (irritable bowel syndrome)04/10/2023 Overview (12/26/2023): With diarrhea, pt seen GI 12/2023 Qcqqqmjx73/23/2023Low HDL (under 40)04/10/2023Lumbar radiculopathy, right 04/10/20236681Iznjqlfd43/23/2023Obesity (BMI 30-39.9)04/10/2023Status post capwchcybftt20/23/2023Vitamin D euvrnqvynt01/23/2023iverticulosis of large intestine without jhgcogxruq91/21/2018 Resolved Problems ProblemNoted DateDiagnosed DateResolved DateBreast cancer screening by mammogram Disorder of ejqbwm56Right shoulder pain /Medication kgqhbhoqez77/23/202306/ute right-sided low back pain with right-sided qfdqianz83hronic mastoiditis of left sideDifficulty gyggoje35/Frontal uqyllpdan02/Otitis media/9354Gtllshzb83/23/2023 05/14/2025History of wdcrnwqdoyqodk50 Encounters DateTypeDepartmentCare LswqQybbcjtvsqi16/15/2025 3:20 PM ESTProcedure Visit [facility] [address] [place] [address] [place] [phone] Dominik León, DO Well woman exam with routine gynecological exam; Encounter for screening mammogram for malignant neoplasm of ladbhu0811/02/2025 Earle flowsheet [facility] [address] [place] [address] [place] [address] Dominik León DO 10/12/2025Refill [facility] [address] [place] [address] Ale Esposito, INPATIENT AUDITOR Heartburnfrom Last 3 Months Immunizations ImmunizationAdministration DatesNext RerIIO9304/06/1986,12/19/1982,1981, 1981,1981Influenza, Ymqmbhzmjai61/15/2018,09/05/2011Influenza, injectable, quadrivalent, preservative free08/06/2018,08/22/2017Measles 12/19/1982Pfizer Purple Cap SARS-CoV-2 Dhnhsolwogf65/28/2022Polio, Unspecified 12/19/1982,1981,1981Tdap12/17/2017 Family History Medical HistoryRelationNameCommentsRheum arthritisFatherKenneth waxDiabetes Maternal GrandfatherRichard babcockDiabetesMotherDiana waxHypertensionMother Amy waxHypothyroidismMotherDiana waxcolorectal cancerMotherDiana waxRelation NameStatusCommentsFatherKenneth waxDeceasedMaternal GrandfatherRichard reny AliveMotherDiana waxAlive Social History Tobacco UseTypesPacks/DayYears UsedDateSmoking Tobacco: NeverPassive Smoke Exposure: PastSmokeless Tobacco: Never Tobacco Cessation:Counseling Given: Not Answered Alcohol UseStandard Drinks/WeekCommentsNot Currently0 (1 standard drink = 0.6 oz pure alcohol)Caffeine intake: 1-2 cups per dayAUDIT-CAnswerDate RecordedQ1: How often do you have a drink containing alcohol?Monthly or less06/07/2023Q2: How many drinks containing alcohol do you have on a typical day when you are drinking?1 or Q3: How often do you have six or more drinks on one occasion?Never07/20/2023PHQ-2AnswerDate RecordedPatient Health Questionnaire-2 Hygxr304CommentsNoSex and Gender InformationValueDate Recorded Sex Assigned at DojqsZzhcfg33/24/2023 1:58 PM EDTLegal VqeSuvosd44/15/2023 6:34 PM EDTGender HyuuxzakTfpmsw29/15/2023 6:34 PM EDTSexual OrientationNot on file Last Filed Vital Signs Vital SignReadingTime TakenCommentsBlood Okaesuml247/7611/02/2025 3:40 PM EST Humvo302405/14/2025 2:23 PM MFGAopbvozqiwm94.7 ??C (98 ??F)09/24/2024 2:59 PM EST Respiratory Rate--Oxygen Rgqxvhuwrf02%02/29/2024 8:45 AM EDTInhaled Oxygen Concentration--Xvlzjn416 kg (254 lb)11/02/2025 3:40 PM YLGVfdeat200.6 cm (5' 4 ) 05/14/2025 2:23 PM EDTBody Mass Index43.606 2:23 PM EDT Plan of Treatment DateTypeDepartmentCare Team (Latest Contact Info)Xoyjcycxlli40/04/2027 4:00 PM ESTProcedure Visit [facility] [address] [place] [address] Dominik León DO [address] [place] [address] Goals GoalPatient Goal TypeAssociated ProblemsRecent ProgressPatient-Stated?Author Help patient manage antidepressant medication Care PlanPatient on antidepressant monitoring planAshley Franco NP Additional Health Concerns Active ProblemsNoted DateDiagnosed DatePatient on antidepressant monitoring plan 08/08/2023 Insurance Care Teams Team MemberRelationshipSpecialtyStart DateEnd Date Ashley Barker NP [address] [place] [address] Family [facility]04/09/23
--- OUTSIDE RECORDS SUMMARY | 2025-11-02 20:07 | XMS_ITS | Patient Health Record ---
Author Organization [facility] es Address [address] [place] [address] Care Team Providers Care Grape Pruner Name Role Phone Dave Dhaliwal Primary Care Provider Vilma Santana Unavailable [phone] STEWART RECINOS Unavailable Unavailable Luba Harris Unavailable [phone] MS. Onesimo Adri Unavailable [phone] Allergies Allergen (clinical drug ingredient) Drug/Non Drug Allergy documented on EMR Reaction Allergy Type Onset Date Status amoxicillin Amoxicillin hives Drug Allergy ActivecodeineCodeinevomitingDrug AllergyActivePenicillinhivesDrug AllergyActive Reason For Referral No Information Medications Medication SIG (Take, Route, Frequency, Duration) Notes Start Date End Date Status Vilazodone HCl 20 MG Tablet 1 tablet wit h food Orally Once a day; Duration: 90 days 5ActiveVilazodone HCl 10 MG Tablet1 tablet with food Orally Once a day; Duration: 90 daystake with 20mg for 30mg total5ActiveQUEtiapine Fumarate 100 MG Tablet1 tablet Orally Once a day; Duration: 90 days10/14/2024 ActiveEstradiol 1 MG Tablet1 tablet Oral Once a day; Duration: 30 daysActive Pregabalin 100 MG Capsule1 capsule Oral twice day; Duration: 30 daysActive CeleBREX 200 MG Capsule1 capsule with food Orally Once a dayActiveOmeprazole 40 MG Capsule Delayed Release1 capsule Oral daily; Duration: 90 daysActive ALPRAZolam 0.5 MG Tablet 1 tablet Orally Twice a day; Duration: 30 days As needed 5ActiveOLANZapine 5 MG Tablet 1 tablet Orally Once a day; Duration: 90 days As needed at night 4ActiveAlmotriptan Malate 12.5 MG Tablet1 tablet as needed, may take second dose at least 2 hours after first dose up to 2 tablets per day as needed Oral; Duration: 12 daysActivetiZANidine HCl 4 MG Tablet1 tablet at bedtime as needed Oral; Duration: 10 daysActive Social History Tobacco Use: Social History Observation Description Date Details (start date - stop date) Never Smoker NA - NA Social History GeneralSocial InfoQuestionAnswerNotesDepression Screening (PHQ-9):Little interest or pleasure in doing thingsSeveral daysFeeling down, depressed, or hopelessSeveral daysTrouble falling or staying asleep, or sleeping too muchNot at allFeeling tired or having little energySeveral daysPoor appetite or overeatingSeveral daysFeeling bad about yourself-or that you are a failure or have let yourself or your family downNot at allTrouble concentrating on things, such as reading the newspaper or watching televisionNot at allMoving or speaking so slowly that other people could have noticed. Or the opposite being so fidgety or restless that you have been moving around a lot more than usualNot at all Thoughts that you would be better off , or of hurting yourself in some way Not at allTotal Ptnhq8FpvnpmtgeuvmgInhhswx DepressionSubstance abuse/mental health issues of patient/familyPatient -Illegal Drug Usemarijuana use Drug/Alcohol:Social InfoQuestionAnswerNotesAUDIT-C (Standard)Did you have a drink containing alcohol in the past year?OoDcusnb2RhenubvyvcvslkTddedjklRwjwzwf Use:Social InfoQuestionAnswerNotesTobacco Control (Standard)Tobacco use: Nonsmoker Problems Problem Type SNOMED Code ICD Code Onset Dates Problem Status W/U Status Risk Notes Problem Mixed bipolar affect sharonda disorder, moderate (236666899) Bipolar disorder, current episode mixed, moderate (F31.62) ActiveconfirmedProblemPosttraumatic stress disorder (95773384)Post traumatic stress disorder (PTSD) (F43.10)Activeconfirmed Vital Signs Heart Rate 78 /min 03/31/2025 Vlgcpcjlqag48.8 degrees Pinkqgujks37/11/7131Eykjenni89 %03/31/2025lood pressure lnkbehxhy49 mm Hg03/31/20259464Neilah41 in03/31/2025lood pressure owubujgm777 mm Hg 03/31/20250737Cjaybx638 lbs03/31/2025BMI37.59 kg/m203/31/2025 Encounters Encounter Location Date Provider Diagnosis [facility] [address] [place] [address] 11/18/2024 [facility] Bipolar disorder, current episode mixed, moderate F31.62 [facility] [address] [place] [address] 01/06[facility]2025 [facility] [place] [address]/[facility]/2025 [facility] [place] [address] 01/12/2025Kip SoviakBipolar disorder, current episode mixed, moderate F31.62 [facility] [place] [address]/12/2024[facility] [place] [address] 03/11/2025Kip SoviakBipolar disorder, current episode mixed, moderate F31.62 [facility] [place] [address] [facility] [place] [address] 05/25/2025Kip SoviakBipolar disorder, current episode mixed, moderate F31.62 [facility] [place] [address] [place] [address] 11/[facility] ([facility] F43.10[facility] [place] [address]/Stephanie LanePost traumatic stress disorder (PTSD) F43.10[facility] [address] [place] [address]/Stephanie LaneBipolar disorder, current episode mixed, moderate F31.62[facility] [address] [place] [address]/Stephanie LaneBipolar disorder, current episode mixed, moderate F31.62 and Post traumatic stress disorder (PTSD) F43.10[facility] [address] [place] [address]/08/2025Stephanie LanePost traumatic stress disorder (PTSD) F43.10[facility] [address] [place] [address]/Stephanie LanePost traumatic stress disorder (PTSD) F43.10[facility] [address] [place] [address]/04/2025Stephanie LaneBipolar disorder, current episode mixed, moderate F31.62[facility] [address] [place] [address]/Stephanie LanePost traumatic stress disorder (PTSD) F43.10 and Bipolar disorder, current episode mixed, moderate F31.62[facility] [address] [facility] [place] [address]/Kip SoviakBipolar disorder, current episode mixed, moderate F31.62[facility] [address] [address] 03/31/2025Kip SoviakBipolar disorder, current episode mixed, moderate F31.62[facility] [address] [facility] [address]/09/2025Kip SoviakBipolar disorder, current episode mixed, moderate F31.62[facility] [address] [facility] [address]/Kip SoviakBipolar disorder, current episode mixed, moderate F31.62S [address] [place] [address] 01/27/2025Kip SoviakBipolar disorder, current episode mixed, moderate F31.62 Assessments Encounter Date Diagnosis (ICD Code) Assessment Notes Treatment Notes Treatment Clinical Notes Section Notes 11/03/2024 Post traumatic stress disorder ( PTSD) (ICD-10 - F43.10) 4Bipolar disorder, current episode mixed, moderate (ICD-10 - F31.62) Patient will continue current treatment plan. Patient verbally acknowledges understanding instructions including medication education and has no further questions comments or concerns at this time. . Follow in 3 Month . Recommended treatment for Bipolar disorder includes FDA approved and OFF label medications: second generation antipsychotics and mood stabilizers. Discussed life threatening side effect of Lamotrigine. Pt is to monitor for new skin rashes or sensation of a sunburn or itchiness or redness, mouth sores or sores in mucus membranes, and call provider immediately and or go to ER, and stop the medication. Second generation antipsychotic medications can cause headache, drowsiness, agitation, dizziness, nausea, or extrapyramidal symptoms such as tremors, muscle spasms, slowness of movement or jerkingof muscles. . Stable . The patient verbalizes understanding with all questions answered thoroughly and is in agreement with treatment plan. . Continue current treatment. Call for problems . GOALS: . Maintain medication regimen . _Improve mood stability . _Improve anxiety control . _Improve social and interpersonal functioning . Patient/Guardian will call sooner if symptoms worsen. Patient understands to go to ER if needed if symptoms become severe. . Crisis Intervention plan was discussed and agreed upon. Patient/Guardian will call 911 in case of emergency. Emergency contact information was provided to the patient/guardian. . Pharmacological management: . Alternative medication plans were discussed with the patient/guardian. All relevant side effects and potential adverse effects were discussed with the patient/guardian. Standard cautions and potential benefits were discussed. Patient/Guardian consented to the start/continuation of the treatment. 4Bipolar disorder, current episode mixed, moderate (ICD-10 - F31.62) 5Bipolar disorder, current episode mixed, moderate (ICD-10 - F31.62) 12/15/2024Post traumatic stress disorder (PTSD) (ICD-10 - F43.10)01/12/2025Post traumatic stress disorder (PTSD) (ICD-10 - F43.10)5Bipolar disorder, current episode mixed, moderate (ICD-10 - F31.62)5Bipolar disorder, current episode mixed, moderate (ICD-10 - F31.62) Increase Ativan to twice a day as needed. Follow up in 30 days to discuss and evaluate. Patient will also have had almost a month on her sleep apnea machine and will follow up to determine if anxietyhas decreased due to better sleep hygiene. Patient will continue current treatment plan. Patient verbally acknowledges understanding instructions including medication education and has no further questions comments or concerns at this time. . Follow in 1 Month . Recommended treatment for Bipolar disorder includes FDA approved and OFF label medications: second generation antipsychotics and mood stabilizers. Discussed life threatening side effect of Lamotrigine. Pt is to monitor for new skin rashes or sensation of a sunburn or itchiness or redness, mouth sores or sores in mucus membranes, and call provider immediately and or go to ER, and stop the medication. Second generation antipsychotic medications can cause headache, drowsiness, agitation, dizziness, nausea, or extrapyramidal symptoms such as tremors, muscle spasms, slowness of movement or jerkingof muscles. . Stable . The patient verbalizes understanding with all questions answered thoroughly and is in agreement with treatment plan. . Continue current treatment. Call for problems . GOALS: . Maintain medication regimen . _Improve mood stability . _Improve anxiety control . _Improve social and interpersonal functioning . Patient/Guardian will call sooner if symptoms worsen. Patient understands to go to ER if needed if symptoms become severe. . Crisis Intervention plan was discussed and agreed upon. Patient/Guardian will call 911 in case of emergency. Emergency contact information was provided to the patient/guardian. . Pharmacological management: . Alternative medication plans were discussed with the patient/guardian. All relevant side effects and potential adverse effects were discussed with the patient/guardian. Standard cautions and potential benefits were discussed. Patient/Guardian consented to the start/continuation of the treatment. 5Bipolar disorder, current episode mixed, moderate (ICD-10 - F31.62) Patient will stop ziprasidone. Increase olanzapine to 5 mg and start Viibryd 20 mg follow-up in 30 days to discuss and evaluate. Patient will continue current treatment plan. Patient verbally acknowledges understanding instructions including medication education and has no further questions comments or concerns at this time. . Follow in 1 Month . Recommended treatment for Bipolar disorder includes FDA approved and OFF label medications: second generation antipsychotics and mood stabilizers. Discussed life threatening side effect of Lamotrigine. Pt is to monitor for new skin rashes or sensation of a sunburn or itchiness or redness, mouth sores or sores in mucus membranes, and call provider immediately and or go to ER, and stop the medication. Second generation antipsychotic medications can cause headache, drowsiness, agitation, dizziness, nausea, or extrapyramidal symptoms such as tremors, muscle spasms, slowness of movement or jerkingof muscles. . Stable . The patient verbalizes understanding with all questions answered thoroughly and is in agreement with treatment plan. . Continue current treatment. Call for problems . GOALS: . Maintain medication regimen . _Improve mood stability . _Improve anxiety control . _Improve social and interpersonal functioning . Patient/Guardian will call sooner if symptoms worsen. Patient understands to go to ER if needed if symptoms become severe. . Crisis Intervention plan was discussed and agreed upon. Patient/Guardian will call 911 in case of emergency. Emergency contact information was provided to the patient/guardian. . Pharmacological management: . Alternative medication plans were discussed with the patient/guardian. All relevant side effects and potential adverse effects were discussed with the patient/guardian. Standard cautions and potential benefits were discussed. Patient/Guardian consented to the start/continuation of the treatment. 5Bipolar disorder, current episode mixed, moderate (ICD-10 - F31.62) 5Bipolar disorder, current episode mixed, moderate (ICD-10 - F31.62) Patient will continue current treatment plan. Patient verbally acknowledges understanding instructions including medication education and has no further questions comments or concerns at this time. . Follow in 1 Month . Recommended treatment for Bipolar disorder includes FDA approved and OFF label medications: second generation antipsychotics and mood stabilizers. Discussed life threatening side effect of Lamotrigine. Pt is to monitor for new skin rashes or sensation of a sunburn or itchiness or redness, mouth sores or sores in mucus membranes, and call provider immediately and or go to ER, and stop the medication. Second generation antipsychotic medications can cause headache, drowsiness, agitation, dizziness, nausea, or extrapyramidal symptoms such as tremors, muscle spasms, slowness of movement or jerkingof muscles. . Stable . The patient verbalizes understanding with all questions answered thoroughly and is in agreement with treatment plan. . Continue current treatment. Call for problems . GOALS: . Maintain medication regimen . _Improve mood stability . _Improve anxiety control . _Improve social and interpersonal functioning . Patient/Guardian will call sooner if symptoms worsen. Patient understands to go to ER if needed if symptoms become severe. . Crisis Intervention plan was discussed and agreed upon. Patient/Guardian will call 911 in case of emergency. Emergency contact information was provided to the patient/guardian. . Pharmacological management: . Alternative medication plans were discussed with the patient/guardian. All relevant side effects and potential adverse effects were discussed with the patient/guardian. Standard cautions and potential benefits were discussed. Patient/Guardian consented to the start/continuation of the treatment. 5Bipolar disorder, current episode mixed, moderate (ICD-10 - F31.62) 5Bipolar disorder, current episode mixed, moderate (ICD-10 - F31.62) 5Bipolar disorder, current episode mixed, moderate (ICD-10 - F31.62) Patient will continue current treatment plan. Patient verbally acknowledges understanding instructions including medication education and has no further questions comments or concerns at this time. . Follow in 3 Month . Recommended treatment for Bipolar disorder includes FDA approved and OFF label medications: second generation antipsychotics and mood stabilizers. Discussed life threatening side effect of Lamotrigine. Pt is to monitor for new skin rashes or sensation of a sunburn or itchiness or redness, mouth sores or sores in mucus membranes, and call provider immediately and or go to ER, and stop the medication. Second generation antipsychotic medications can cause headache, drowsiness, agitation, dizziness, nausea, or extrapyramidal symptoms such as tremors, muscle spasms, slowness of movement or jerkingof muscles. . Stable . The patient verbalizes understanding with all questions answered thoroughly and is in agreement with treatment plan. . Continue current treatment. Call for problems . GOALS: . Maintain medication regimen . _Improve mood stability . _Improve anxiety control . _Improve social and interpersonal functioning . Patient/Guardian will call sooner if symptoms worsen. Patient understands to go to ER if needed if symptoms become severe. . Crisis Intervention plan was discussed and agreed upon. Patient/Guardian will call 911 in case of emergency. Emergency contact information was provided to the patient/guardian. . Pharmacological management: . Alternative medication plans were discussed with the patient/guardian. All relevant side effects and potential adverse effects were discussed with the patient/guardian. Standard cautions and potential benefits were discussed. Patient/Guardian consented to the start/continuation of the treatment. 04/28/2025Post traumatic stress disorder (PTSD) (ICD-10 - F43.10)05/25/2025 Bipolar disorder, current episode mixed, moderate (ICD-10 - F31.62)07/07/2025 Post traumatic stress disorder (PTSD) (ICD-10 - F43.10)03/04/2025Post traumatic stress disorder (PTSD) (ICD-10 - F43.10)12/15/2024ipolar disorder, current episode mixed, moderate (ICD-10 - F31.62) Plan Of Treatment No Information Insurance Providers Payer Name Payer Address Payer Phone Subscriber Number Group Number Insured Name Patient Relationship to Insured Coverage Start Date Coverage End Date [employer] Primary [address] [place] [address] [id number] PRISCA MCLEOD Self - patient is the insured 4 Medical (General) History Medical History History ICD Code anxiety depressiondiverticulosisIBSmigrainesSurgical History Surgery Date(Month/Year) R shoulder- spur removed rotator cuff- L shoulderhysterectomytubal ligationplantar wartcholecystectomy Hospitalization History Reason Date(Month/Year) see surgeries above
--- OUTSIDE RECORDS SUMMARY | 2025-11-02 20:07 | XMS_ITS | Clinical Summary ---
Author Organization [facility] [facility] Address [address] [place] [address] Care Team Providers Care Architectural Design Professor Name Role Phone [id number] NP Primary Care P rovider Social History Tobacco UseTypesPacks/DayYears UsedDateSmoking Tobacco: Never Assessed CommentsUnknownSex and Gender InformationValueDate RecordedSex Assigned at Not on fileLegal UmfNwngwu28/03/2021 3:44 PM EDTGender IdentityNot on fileSexual OrientationNot on file Plan of Treatment Not on file Medical Devices Not on file Insurance Care Teams Team MemberRelationshipSpecialtyStart DateEnd Date [id number], Imani Marcos NP [address] [place], [place] [id number] [facility]
--- OUTSIDE RECORDS SUMMARY | 2025-11-02 20:07 | XMS_ITS | Clinical Summary ---
Author Organization [facility] Address [address], [address] [place] [address] Care Team Providers Care Health And Human Performance Professor Name Role Phone Maddie Rosales MD Primary Care Provider Allergies Active AllergyReactionsCriticalityNoted PvwjFwskwtgqVkybslmlqkiZvctr39/02/2016 CodeineOther (See Comments)High09/14/2011 Pt. States develops dizziness and lightheadedness from Codeine. Medications MedicationSigDispense QuantityRefillsLast FilledStart DateEnd DateStatus almotriptan (AXERT) 12.5 MG tablet Take 12.5 mg by mouth once as needed. may repeat in 2 hours if neededActive Xpqalbj-Seezczfcyxpot-Xqlrzvpb (EXCEDRIN MIGRAINE PO) Take by mouth as needed.Active hyoscyamine (LEVSIN/SL) 0.125 MG SL tablet Indications:Abdominal painDISSOLVE ONE TO TWO TABLETS UNDER TONGUE EVERY 4 HOURS NEEDED FOR ABDOMINAL PAIN OR CRAMPS 60 tablet ctive hyoscyamine (LEVSIN/SL) 125 MCG sublingual tablet Dissolve one or two under tongue every four hours as needed for abdominal pain or cramps. 60 tablet 6112/09/2017Active Active Problems ProblemNoted DateDiagnosed DateDiverticulosis of large intestine without txuvhytdxa79/21/2018History of deyqpwsukprxpj48/21/2018Abdominal pain10/10/2011 Weight loss10/10/2011Change in bowel chmfap6610/10/2011 Immunizations ImmunizationAdministration DatesNext DueInfluenza Virus Tgbqavb3109/02/2018, 09/05/2011 Family History Medical HistoryRelationNameCommentsOtherFathergastric ulcerRheum ArthritisFather DiabetesMotherHigh Blood PressureMotherHypertensionMotherThyroid DiseaseMother RelationNameStatusCommentsFatherAliveMotherAlive Social History Tobacco UseTypesPacks/DayYears UsedDateSmoking Tobacco: NeverSmokeless Tobacco: NeverAlcohol UseStandard Drinks/WeekCommentsNo0 (1 standard drink = 0.6 oz pure alcohol)CommentsNoSex and Gender InformationValueDate RecordedSex Assigned at BirthNot on fileLegal LusTxbbxb59/12/2013 7:41 PM ESTGender Identity Not on fileSexual OrientationNot on file Last Filed Vital Signs Vital SignReadingTime TakenCommentsBlood Zoeearmo681/8110/09/2018 7:29 AM EST Zrtlu439010/09/2018 7:29 AM XUORmmcgeazgim99.6 ??C (97.8 ??F)10/09/2018 7:29 AM ESTRespiratory Kksd111112/09/2017 7:29 AM ESTOxygen Saturation--Inhaled Oxygen Concentration--Vepxvo32.8 kg (220 lb)10/09/2018 7:29 AM HKUBlxrer145.6 cm (5' 4 )10/09/2018 7:29 AM ESTBody Mass Index37.7610/09/2018 7:29 AM EST Plan of Treatment Not on file Insurance Care Teams Team MemberRelationshipSpecialtyStart DateEnd Date Wonderly, Maddie Silveira MD PCP - Arriufb09/22/11
--- OUTSIDE RECORDS SUMMARY | 2025-11-02 20:07 | XMS_ITS | Clinical Summary ---
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 Role Phone Generic Provider, No Assigned Pcp MD Primary Car e Provider Unavailable Allergies Active AllergyReactionsCriticalityNoted DateCommentsPenicillin ZMxhqx4504/10/2023 Medications MedicationSigDispense QuantityRefillsLast FilledStart DateEnd DateStatus almotriptan (Axert) 12.5 mg tablet Take 1 tablet (12.5 mg) by mouth.5Active ALPRAZolam (Xanax) 0.5 mg tablet 5Active baclofen (Lioresal) 10 mg tablet Take 2 tablets (20 mg) by mouth twice a day.5Active calcium polycarbophiL (Fibercon) 625 mg tablet Take 1 tablet (625 mg) by mouth once daily.Active celecoxib (CeleBREX) 200 mg capsule Take 1 capsule (200 mg) by mouth once daily.4Active cholecalciferol (Vitamin D-3) 125 mcg (5,000 units) capsule Cholecalciferol (Vitamin D3) 125 mcg (5,000 unit) capsule Active 5000 UNIT PO Daily March 21, 2024 12:00am Complies with drug mgiuvtt9603/21/2024ctive dicyclomine (Bentyl) 10 mg capsule Take 1 capsule (10 mg) by mouth once daily as needed.Active estradiol (Estrace) 1 mg tablet Take 1 tablet (1 mg) by mouth once daily.05/6Active OLANZapine (ZyPREXA) 5 mg tablet 5Active omeprazole (PriLOSEC) [address] capsule Omeprazole 40 mg capsule,delayed release(DR/EC) Active 40 MG PO Daily March 05, 2024 12:00am Complies with drug yarfpzb83/17/2024Active polyethylene glycol (Glycolax, Miralax) 17 gram packet 17 g.11/26/2024tive pregabalin (Lyrica) 75 mg capsule Take 1 capsule (75 mg) by mouth twice a day. Do not fill before July 01, 2025. 07/01/2025tive QUEtiapine (SEROquel) 100 mg tablet Take by mouth once daily.11/17/2024ctive HYDROcodone-acetaminophen ([place]) 10-325 mg tablet Indications:Post-op painTake 1 tablet by mouth every 6 hours if needed for severe pain (7 - 10). 20 tablet 08/01/2025tive Active Problems ProblemNoted DateDiagnosed DateTemporal yjiwszghixyxs12/02/2025PONV (postoperative nausea and vomiting)07/31/20255215Wmrlyfm94/12/2025Depression 07/31/2025ipolar psiulxpp70/12/2025Irritable bowel xjttuvtt13/12/2025 Hzmsvjqvyxtski76/12/2025Spinal stenosis of lumbosacral kfzkjl2407/31/2025Obesity 07/31/2025OSA (obstructive sleep apnea)07/31/2025enign neoplasm of temporal bone06/26/2025symmetrical sensorineural hearing loss06/26/2025Vestibular mvffsmnyoz71/07/2025 Encounters DateTypeDepartmentCare UerfWkamylmucrd23/02/2025 2:00 PM EDTOffice Visit [facility] [address] [place] [address] Eagle Rios MD Asymmetrical sensorineural hearing loss (Primary Dx); Temporal encephalocele (Multi); Class 3 severe obesity with body mass index (BMI) of 40.0 to 44.9 in adult, unspecified obesity type, unspecified whether serious comorbidity present ([facility])08/20/20258465Mvfgea14/25/9786Lnqdyb91/15/2025Telephone [facility] [address] [place] [address] Laura Alcantara RN from Last 3 Months Family History Medical HistoryRelationNameCommentsRheum arthritisFatherStrokeMaternal GrandmotherCancerMotherCervical cancerMotherColon cancerMotherDiabetesMother HypertensionMotherThyroid diseaseMotherRelationNameStatusCommentsFatherDeceased Maternal GrandmotherAliveMotherAlive Social History Tobacco UseTypesPacks/DayYears UsedDateSmoking Tobacco: NeverPassive Smoke Exposure: NeverSmokeless Tobacco: Never Tobacco Cessation:Counseling Given: Not Answered Alcohol UseStandard Drinks/WeekCommentsNot Currently0 (1 standard drink = 0.6 oz pure alcohol)PHQ-2AnswerDate RecordedPatient Health Questionnaire-2 Score0 07/31/2025Humiliation, Afraid, Rape, and Kick questionnaireAnswerDate Recorded Within the last year, have you been afraid of your partner or ex-partner?Patient jsezpjta60/12/2025Within the last year, have you been humiliated or emotionally abused in other ways by your partner or ex-partner?Patient xjdaycwn29/12/2025 Within the last year, have you been kicked, hit, slapped, or otherwise physically hurt by your partner or ex-partner?Patient wcrvkojl55/12/2025Within the last year, have you been raped or forced to have any kind of sexual activity by your partner or ex-partner?Patient zrembjbd69/12/2025UDIT-CAnswerDate RecordedQ1: How often do you have a drink containing alcohol?Never07/31/2025Q2: How many drinks containing alcohol do you have on a typical day when you are drinking?Patient does not drink07/31/2025Frequency of Binge DrinkingNever 07/31/2025Overall Financial Resource Strain (CARDIA)AnswerDate RecordedHow hard is it for you to pay for the very basics like food, housing, medical care, and heating?Patient xlpbarcd46/12/2025Hunger Vital SignAnswerDate RecordedWithin the past 12 months, you worried that your food would run out before you got the money to buymore.Patient njqbuvzs37/12/2025Within the past 12 months, the food you bought just didn't last and you didn't have money to get more.Patient ewduhkgk44/12/2025PRAPARE - TransportationAnswerDate RecordedIn the past 12 months, has lack of transportation kept you from medical appointments or from getting medications?Patient zmcnsewe23/12/2025In the past 12 months, has lack of transportation kept you from meetings, work, or from getting things needed for daily living?Patient ykchyogk15/12/2025Housing Stability Vital SignAnswerDate RecordedIn the last 12 months, was there a time when you were not able to pay the mortgage or rent on time?Patient ahtwkfru63/12/2025In the past 12 months, how many times have you moved where you were living?t any time in the past 12 months, were you homeless or living in a detention (including now)? Patient bkmeqomf70/12/2025HC UtilitiesAnswerDate RecordedIn the past 12 months has the [employer], gas, oil, or water [employer] threatened to shut off services in your home?Patient dacracec32/12/2025CommentsNoSex and Gender Information ValueDate RecordedSex Assigned at BirthNot on fileLegal YzhScinfy40/17/2025 3:14 PM EDTGender IdentityNot on fileSexual OrientationNot on file Last Filed Vital Signs Vital SignReadingTime TakenCommentsBlood Taprksxb532/8708/01/2025 11:10 AM EDT Lruxs092808/01/2025 11:10 AM KPAExoqizxqkzh72.4 ??C (97.5 ??F)08/01/2025 11:10 AM EDTRespiratory Xzfv174508/01/2025 11:10 AM EDTOxygen Qkzudpqhgj16%08/01/2025 11:10 AM EDTInhaled Oxygen Concentration--Btuofq639 kg (239 lb)08/20/2025 1:27 PM EDT Fthdcu713.6 cm (5' 4 )08/20/2025 1:27 PM EDTBody Mass Index41.021 1:27 PM EDT Plan of Treatment Health MaintenanceDue DateLast DoneCommentsHIV Niripptou1981MMR Vaccines (1 of 1 - Standard series)1982IPV Vaccines (4 of 4 - 4-dose series) , 1981, 1981Hepatitis C Sowugmzkn14/07/1999 Hepatitis B Vaccines (1 of 3 - 19+ 3-dose series)02/24/2000HPV Vaccines (1 - 3- dose standard series)02/24/20080771Japofhcrp34/24/202405/Influenza Vaccine (#1), 08/06/2018, 08/22/2017, Additional history exists COVID-19 Vaccine (2 - 2024- season)502/Yearly Adult Physical /, 09/29/2024, 3Diabetes Cicsrxuok05/04/2026 07/23/2025DTaP/Tdap/Td Vaccines (7 - Td or Tdap), 04/06/1986, 12/19/1982, Additional history existsLipid Panel/11/2024 Zoster Vaccines (1 of 2)/08/2025, 06/24/2025HIB VaccinesAged OutNo longer eligible based on patient's age to complete this topicHepatitis A VaccinesAged OutNo longer eligible based on patient's age to complete this topic Meningococcal VaccineAged OutNo longer eligible based on patient's age to complete this topicPneumococcal Vaccine: Pediatrics and At-Risk Adult Patients Aged OutNo longer eligible based on patient's age to complete this topic Rotavirus VaccinesAged OutNo longer eligible based on patient's age to complete this topic Medical Devices ImplantedTypeAreaManufacturerDevice IdentifierShelf Expiration DateModel / Serial / LotCement, Injectable, Hydroset 5cc - [id number] Implanted:Qty: 1 on 07/31/2025 [facility]: Cecilia [id number] / / [id number] Procedures Procedure NamePriorityDate/TimeAssociated DiagnosisCommentsCOMPREHENSIVE METABOLIC NYTVCBexpqcd52/04/2025 3:43 PM EDT Pre-op testing from Last 3 Months or Most Recently Relevant to Health Maintenance Results * (ABNORMAL) Comprehensive Metabolic Panel (07/23/2025 3:43 PM EDT)Component ValueRef RangeTest MethodAnalysis TimePerformed AtPathologist SignatureGlucose 103(H)74 - 99 mg/dL LAB CHEMISTRY METHOD 07/23/2025 5:[facility] ROBOhmcja325833 - 145 mmol/L LAB CHEMISTRY METHOD 07/23/2025 5:08 [facility] LABPotassium4.13.5 - 5.3 mmol/L LAB CHEMISTRY METHOD 07/23/2025 5:[facility] ZIHAbybdjcn24833 - 107 mmol/L LAB CHEMISTRY METHOD 07/23/2025 5:08 [facility] EFPKgkltzrnfsz6233 - 32 mmol/L LAB CHEMISTRY METHOD 07/23/2025 5:08 [facility] LABAnion Omg9776 - 20 mmol/L LAB CHEMISTRY METHOD 07/23/2025 5:08 PM [facility] LABUrea Mvkdphea796 - 23 mg/dL LAB CHEMISTRY METHOD 07/23/2025 5:08 [facility] LABCreatinine0.49(L)0.50 - 1.05 mg/dL LAB CHEMISTRY METHOD 07/23/2025 5:08 PM [facility] LABeGFR>90>60 mL/min/1.73m*2 LAB CHEMISTRY METHOD 07/23/2025 5:08 PM [facility] LABComment: Calculations of estimated GFR are performed using the 2020 CKD-EPI Study Refit equation without therace variable for the IDMS-Traceable creatinine methods. https://jasn.asnjournals.org/content//ASN.8939297832 Calcium9.68.6 - 10.6 mg/dL LAB CHEMISTRY METHOD 07/23/2025 5:08 PM [facility] LABAlbumin4.23.4 - 5.0 g/dL LAB CHEMISTRY METHOD 07/23/2025 5:08 PM [facility] LABAlkaline Craertphjts4196 - 110 U/L LAB CHEMISTRY METHOD 07/23/2025 5:08 PM [facility] LABTotal Protein6.76.4 - 8.2 g/dL LAB CHEMISTRY METHOD 07/23/2025 5:08 PM [facility] UPUZMC004 - 39 U/L LAB CHEMISTRY METHOD 07/23/2025 5:08 PM [facility] LABBilirubin, Total0.60.0 - 1.2 mg/dL LAB CHEMISTRY METHOD 07/23/2025 5:08 PM [facility] BXBAEB93(H)7 - 45 U/L LAB CHEMISTRY METHOD 07/23/2025 5:08 PM [facility] LABComment:Patients treated with Sulfasalazine may generate falsely decreased results for ALT.Specimen (Source)Anatomical Location / LateralityCollection Method / VolumeCollection TimeReceived TimeBloodVenous blood specimen / UnknownVenipuncture / Vrztpbe2807/23/2025 3:43 PM EDT07/23/2025 3:43 PM EDT Narrative Authorizing ProviderResult TypeResult StatusCamhermelinda Rios MDHEARTLAND LASIK CENTER BLOOD ORDERABLESFinal ResultPerforming OrganizationAddressCity/State/Z[place] [address] from Last 3 Months or Most Recently Relevant to Health Maintenance Insurance Advance Directives For more information, please contact: [phone] (Available ) * Full Code (Latest Code Status on File) Date ActivatedDate InactivatedComments07/31/2025 12:16 PMQuestionAnswerComments Plan of Care:* Code Status Discussion Completed Decision Maker:* Patient Care Teams Team MemberRelationshipSpecialtyStart DateEnd Date Generic Provider, No Assigned Pcp, [place] [id number] PCP - GeneralGeneral Practice07/23/25
== END 2025-11-02 20:03 | disposition home or self-care (01) ==
LOC: LAB 20:02
PROVIDERS: PCP Obstetrics & Gynecology; Visit Provider Obstetrics & Gynecology
DX: Z01.419 Encounter for gynecological examination (general) (routine) without abnormal findings (principal)
CPT/HCPCS: 88175